=== PATIENT | male | born 1965 | race Hispanic/Latino ===

== ENCOUNTER 2017-10-01 23:29 | Emergency (ER) | payer MEDICARE ==
[~2017-10-01] VITALS: Ht 165.1 cm; Wt 58.1 kg
[~2017-10-01 23:29] MED LIST: ACETAMINOPHEN650 M1 PO; AMLODIPINE BESY10 MG PO; ASPIR 8181 MG PO; ATORVASTATIN CA40 MG PO; CARVEDILOL12.5 MG PO; CIPRO500 MG PO; DIALYVITE 800-1 EACH PO; DIALYVITE 8000.8 M1 PO; DIPHENOXYLATE-1 EACH PO; FERROUS SULFAT325 MG PO; FLAGYL250 MG; HUMALOG MI100 UNITS/ SQ; HYDRALAZINE HCL25 MG PO; ISOSORBIDE MONO30 MG PO; LANTUS 3ML100 UNITS/ SQ; LANTUS100 UNITS/ SQ; LASIX20 MG PO; LISINOPRIL10 MG PO; METOCLOPRAMIDE10 MG PO; MINOXIDIL2.5 MG PO; MIRTAZAPINE15 MG PO; NIFEDIPINE ER30 M1 PO; NITROGLYCERIN0.4 MG SL; PANTOPRAZOLE SO40 MG PO; PLAVIX75 MG PO; PREDNISOLONE ACETATE OP; RENVELA0.8 GM PO; SUCRALFATE1 G/10 ML PO; SUMATRIPTAN SUC50 MG PO; TRAZODONE HCL50 MG PO; VELPHORO PO; XYZAL5 MG PO; ZOFRAN ODT4 MG PO; ZOFRAN4 MG PO
[2017-10-01] MEDS ORDERED: METHYLPREDNISOLONE SOD SUCC 125 MG/2ML VIAL IV STA (23:40)
[2017-10-01] MEDS ORDERED: DIPHENHYDRAMINE HCL INJ 50 MG/ML VIAL IV ONE (23:45)
[2017-10-01 23:58] LABS: BASOPHILS # (AUTO) 0.1 (0.0-0.1); BASOPHILS % 0.7 % (0.0-1.0); EOSINOPHILS # (AUTO) 0.6 (0.0-0.4); EOSINOPHILS % 6.4 % (0.0-6.0); HEMATOCRIT 41.3 % (38.2-49.6); HEMOGLOBIN 13.5 g/dL (14.0-18.0); LYMPHOCYTES # (AUTO) 0.9 (1.0-3.2); LYMPHOCYTES % 9.9 % (18.0-39.1); MEAN CORPUSCULAR HEMOGLOBIN 31.8 pg (28-32); MEAN CORPUSCULAR HGB CONC 32.7 g/dL (31-35); MEAN CORPUSCULAR VOLUME 97.4 fL (81-99); MONOCYTES # (AUTO) 0.7 (0.2-0.8); MONOCYTES % 7.6 % (4.4-11.3); NEUTROPHILS % 75.1 % (38.7-80.0); PLATELET COUNT 225 x10e3/uL (140-360); RED BLOOD COUNT 4.24 x10e6/uL (4.3-5.7); RED CELL DISTRIBUTION WIDTH 13.2 % (11.7-14.4)
[2017-10-02 00:12] LABS: INR 0.97; PROTHROMBIN TIME 13.4 seconds (11.9-14.5)
[2017-10-02 00:13] LABS: PARTIAL THROMBOPLASTIN TIME 27.8 seconds (23.8-35.5)
[2017-10-02 00:19] LABS: ALBUMIN 4.4 g/dL (3.5-5.0); ALBUMIN/GLOBULIN RATIO 1.2 (0.8-2.0); ANION GAP 20.1 mmol/L (8-16); CALCIUM 9.4 mg/dL (8.4-10.2); POTASSIUM 5.1 mmol/L (3.5-5.1)
[2017-10-02 00:44] LABS: CREATININE, SERUM 7.73 mg/dL (0.72-1.25)
== END 2017-10-02 01:12 | disposition home or self-care (01) ==
LOC: ER 23:29
DX: L50.2 Urticaria due to cold and heat (principal); I12.0 Hypertensive chronic kidney disease with stage 5 chronic kidney disease or end stage renal disease; N18.6 End stage renal disease; Z99.2 Dependence on renal dialysis; I25.2 Old myocardial infarction; Z95.1 Presence of aortocoronary bypass graft
CPT/HCPCS: 36415; 80053; 85025; 85610; 85730; 99283; J1200; J2930

== ENCOUNTER 2018-01-31 10:22 | Emergency (ER) | payer MEDICARE ==
[~2018-01-31] VITALS: Ht 165.1 cm; Wt 58.1 kg
--- OUTSIDE RECORDS SUMMARY | 2018-01-31 10:25 | XMS REPORT ---
Author Author [facility] Address Unknown Phone Unavailable Care Team Providers Care Government Relations Director Name Role Phone Unavailable Unavailable Problems This patient has no known problems. Allergies, Adverse Reactions, Alerts This patient has no known allergies or adverse reactions. Medications This patient has no known medications. Encounters Start Date/Time End Date/Time Encounter Type Admission Type Attending [facility] Care Department Encounter ID 2018-01-31 00:00:00 2018-01-31 00:00:00 Outpatient [facility] [id number] 2017-11-30 00:00:00 2017-11-30 00:00:00 Outpatient [facility] [id number] 2017-11-22 12:50:44 2017-11-22 12:50:44 Outpatient [facility] [id number] 2017-11-08 13:46:46 2017-11-08 13:46:46 Outpatient [facility] [id number] 2017-10-03 00:00:00 2017-10-03 00:00:00 Outpatient [facility] [id number] 2016-12-02 11:24:54 2016-12-02 11:24:54 Outpatient [facility] [id number]
[2018-01-31] MEDS ORDERED: DIPHENHYDRAMINE HCL 25 MG CAP PO ONE (11:00)
[2018-01-31] MEDS ORDERED: METOCLOPRAMIDE HCL 10 MG TAB PO SCH (11:00)
[2018-01-31] MEDS ORDERED: METOCLOPRAMIDE HCL 10 MG TAB PO ONE (11:00)
[2018-01-31] MEDS ORDERED: METOCLOPRAMIDE HCL 10 MG/2ML VIAL IV STA (14:17)
[2018-01-31] MEDS ORDERED: ACETAMINOPHEN 1000 MG/100 ML IV STA (14:19)
[2018-01-31 14:30] LABS: BASOPHILS # (AUTO) 0.1 (0.0-0.1); BASOPHILS % 0.8 % (0.0-1.0); EOSINOPHILS # (AUTO) 0.4 (0.0-0.4); EOSINOPHILS % 6.4 % (0.0-6.0); HEMOGLOBIN 12.7 g/dL (14.0-18.0); LYMPHOCYTES # (AUTO) 0.7 (1.0-3.2); LYMPHOCYTES % 11.4 % (18.0-39.1); MEAN CORPUSCULAR HEMOGLOBIN 33.7 pg (28-32); MEAN CORPUSCULAR HGB CONC 33.4 g/dL (31-35); MEAN CORPUSCULAR VOLUME 100.8 fL (81-99); MONOCYTES # (AUTO) 0.6 (0.2-0.8); MONOCYTES % 8.7 % (4.4-11.3); NEUTROPHILS # (AUTO) 4.7 (2.1-6.9); NEUTROPHILS % 72.5 % (38.7-80.0); PLATELET COUNT 152 x10e3/uL (140-360); RED BLOOD COUNT 3.77 x10e6/uL (4.3-5.7); RED CELL DISTRIBUTION WIDTH 13.8 % (11.7-14.4)
[2018-01-31 14:51] LABS: ALBUMIN 3.8 g/dL (3.5-5.0); ALBUMIN/GLOBULIN RATIO 1.1 (0.8-2.0); ALKALINE PHOSPHATASE 63 IU/L (40-150); BLOOD UREA NITROGEN 34 mg/dL (7-26); BUN/CREATININE RATIO 5 (6-25); CARBON DIOXIDE 26 mmol/L (22-29); CHLORIDE 97 mmol/L (98-107); CREATININE, SERUM 7.33 mg/dL (0.72-1.25); EST GLOMERULAR FILTRATION RATE 8 ML/MIN (60-); GLUCOSE 142 mg/dL (74-118); SODIUM 137 mmol/L (136-145)
[2018-01-31 14:52] LABS: ALANINE AMINOTRANSFERASE < 6 IU/L (0-55)
[2018-01-31] MEDS ORDERED: DIPHENHYDRAMINE HCL 25 MG CAP PO SCH (15:15)
[2018-01-31 15:47] VITALS: BP 155/87
== END 2018-01-31 15:45 | disposition home or self-care (01) ==
LOC: ER 10:22
DX: G44.211 Episodic tension-type headache, intractable (principal); I10 Essential (primary) hypertension; E11.9 Type 2 diabetes mellitus without complications; F17.210 Nicotine dependence, cigarettes, uncomplicated
CPT/HCPCS: 36415; 80053; 85025; 99284; J2765

== ENCOUNTER 2018-07-15 21:20 | Inpatient (IN) | payer MEDICARE ==
[~2018-07-15] VITALS: Ht 165.1 cm; Wt 72.6 kg
[2018-07-15] MEDS ORDERED: PANTOPRAZOLE 40 MG 10ML VIAL IV STA (23:04)
[2018-07-15] MEDS ORDERED: ONDANSETRON HCL INJ 2 MG/ML VIAL IV STA (23:04)
[2018-07-15 23:13] LABS: BASOPHILS % 0.6 % (0.0-1.0); EOSINOPHILS # (AUTO) 0.3 (0.0-0.4); EOSINOPHILS % 3.7 % (0.0-6.0); HEMATOCRIT 33.7 % (38.2-49.6); LYMPHOCYTES # (AUTO) 0.7 (1.0-3.2); LYMPHOCYTES % 10.4 % (18.0-39.1); MEAN CORPUSCULAR HEMOGLOBIN 32.8 pg (28-32); MEAN CORPUSCULAR HGB CONC 32.6 g/dL (31-35); MEAN CORPUSCULAR VOLUME 100.6 fL (81-99); MONOCYTES # (AUTO) 0.6 (0.2-0.8); MONOCYTES % 7.9 % (4.4-11.3); NEUTROPHILS # (AUTO) 5.4 (2.1-6.9); NEUTROPHILS % 77.3 % (38.7-80.0); PLATELET COUNT 174 x10e3/uL (140-360); RED BLOOD COUNT 3.35 x10e6/uL (4.3-5.7); RED CELL DISTRIBUTION WIDTH 12.8 % (11.7-14.4)
[2018-07-15 23:18] LABS: INR 1.04; PARTIAL THROMBOPLASTIN TIME 31.6 seconds (23.8-35.5); PROTHROMBIN TIME 14.5 seconds (11.9-14.5)
[2018-07-15 23:25] LABS: ALBUMIN/GLOBULIN RATIO 1.3 (0.8-2.0); CALCIUM 9.1 mg/dL (8.4-10.2); CREATININE, SERUM 10.28 mg/dL (0.72-1.25); MAGNESIUM 2.4 MG/DL (1.3-2.1)
[2018-07-15 23:32] LABS: CREATINE KINASE MB 2.2 ng/mL (0-5.0)
[2018-07-15] MEDS ORDERED: DIATRIZOATE MEGL/DIATRIZOA SOD 30 ML BTL PO ONE (23:40)
[2018-07-16] MEDS ORDERED: DEXTROSE 50% SYRINGE 50 ML IV STA (00:27)
[2018-07-16] MEDS ORDERED: SODIUM BICARBONATE 8.4% INJ 50 ML SYR IV STA (00:27)
[2018-07-16] MEDS ORDERED: INSULIN REGULAR, HUMAN 100 UNIT/1 ML 3ML VIAL IV ONE (00:30)
--- NOTE | 2018-07-16 00:45 | Diagnostic Imaging Report ---
EXAM: CHEST SINGLE (PORTABLE), AP 1 view INDICATION: Nausea and vomiting COMPARISON: AP view of the chest March 27, 2016 FINDINGS: LINES/TUBES: None LUNGS: No consolidations. Stable vascular congestion. PLEURA: No effusions or pneumothorax. HEART AND MEDIASTINUM: Stable cardiomegaly and median sternotomy wires. Surgical changes of coronary artery bypass. BONES AND SOFT TISSUES: No acute findings. IMPRESSION: Stable cardiomegaly and vascular congestion. Signed by: Dr. Alia Roe M.D. on 07/16/2018 12:41 AM
[2018-07-16 00:53] LABS: AMYLASE 86 U/L (25-125); LIPASE 30 U/L (8-78)
[2018-07-16 01:24] LABS: COLOR,URINE YELLOW (YELLOW)
[2018-07-16 01:25] LABS: BILIRUBIN,URINE NEGATIVE (NEGATIVE); CLARITY,URINE CLOUDY (CLEAR); KETONES,URINE NEGATIVE (NEGATIVE); LEUKOCYTE ESTERASE ,URINE 1+ (NEGATIVE); NITRITE,URINE NEGATIVE (NEGATIVE); PROTEIN,URINE DIPSTICK 3+ (NEGATIVE); URINE UROBILINOGEN 0.2 mg/dL (0.2 - 1)
[2018-07-16 01:26] LABS: BACTERIA,URINE FEW /HPF; EPITHELIAL CELLS,URINE FEW /LPF; WBC,URINE (MAN) 21-50 /HPF (0-5)
--- NOTE | 2018-07-16 01:31 | Diagnostic Imaging Report ---
EXAM: CT ABDOMEN AND PELVIS without IV CONTRAST INDICATION: Nausea, vomiting and abdominal pain COMPARISON: None TECHNIQUE: The abdomen and pelvis were scanned using a multidetector helical scanner. Coronal and sagittal reformations were obtained. Dose modulation, iterative reconstruction, and/or weight based adjustment of the mA/kV was utilized to reduce the radiation dose to as low as reasonably achievable. Routine protocol performed. IV Contrast: None Oral Contrast: Gastrografin CTDIvol has been reviewed. It is below the limits set by the Radiation Protocol Committee (RPC). FINDINGS: LOWER THORAX: No consolidations. Partially visualized cardiomegaly and coronary artery calcifications. LIVER: No masses. Portal edema. BILIARY: Marked gallbladder wall thickening and adjacent inflammation. SPLEEN: No masses PANCREAS: No masses ADRENALS: Bilateral adrenal gland hyperplasia. RIGHT KIDNEY: No nephroureterolithiasis or hydronephrosis. LEFT KIDNEY: No nephroureterolithiasis or hydronephrosis. GI TRACT: Thickening of the colon at the hepatic flexure, may be reactive. No bowel obstruction. Normal appendix. VESSELS: Marked atherosclerotic changes of the abdominal aorta without aneurysm. PERITONEUM/RETROPERITONEUM: Right upper quadrant free fluid and inflammatory changes. 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 IMPRESSION: Findings suspicious for acute cholecystitis. A right upper quadrant ultrasound is recommended for further evaluation. Signed by: Dr. Alia Roe M.D. on 07/16/2018 1:27 AM
[2018-07-16] MEDS ORDERED: DEXTROSE 50% SYRINGE 50 ML IV PRN (01:45)
[2018-07-16] MEDS: MORPHINE SULFATE 2 MG/ML SYR IV PRN ×2 (02:14→08:00)
[2018-07-16] MEDS: METRONIDAZOLE 500MG/NS 100ML 100 ML IV SCH ×4 (04:56→21:20)
--- NOTE | 2018-07-16 04:59 | Diagnostic Imaging Report ---
EXAM: US GALLBLADDER INDICATION: Abdominal pain COMPARISON: CT of the abdomen and pelvis without IV contrast July 16, 2018 TECHNIQUE: Transverse and longitudinal sonographic images of the right upper abdomen were obtained. FINDINGS: LIVER: 16 cm in the right midclavicular line. Normal echogenicity, normal contour, no masses. Main Portal Vein: Normal size with hepatopetal flow. GALLBLADDER: Marked gallbladder wall thickening up to 8 mm and pericholecystic fluid. Negative sonographic Castellano's sign. BILE DUCTS: No intra nor extra-hepatic dilation. Common bile duct measures 0.5 cm. PANCREAS: Visualized portions are normal. RIGHT KIDNEY: 7.9 cm in length Echogenicity: Normal Collecting System: No hydronephrosis Stones: None Cyst/Mass: None FREE FLUID: None in the right upper quadrant of the abdomen IMPRESSION: Marked gallbladder wall thickening and pericholecystic fluid. However the sonographic Castellano's sign was negative and there are no gallstones. Signed by: Dr. Alia Roe M.D. on 07/16/2018 4:56 AM
[2018-07-16] MEDS: ONDANSETRON HCL INJ 2 MG/ML VIAL IV PRN ×5 (05:48→22:22)
[2018-07-16] MEDS: INSULIN REGULAR, HUMAN 100 UNIT/1 ML 3ML VIAL SQ SCH ×4 (07:45→20:19)
[2018-07-16] MEDS ORDERED: HYDROMORPHONE 2MG/ML 2 MG/ML ML IV ONE (09:15)
[2018-07-16] MEDS: FAMOTIDINE 20 MG/2 ML VIAL IV SCH ×2 (09:25→21:20)
[2018-07-16] MEDS: CEFTRIAXONE SOD 1 GM VIAL IV SCH (09:30)
[2018-07-16] MEDS ORDERED: ENALAPRILAT DIHYDRATE 1.25 MG/ML 2ML VIAL IV PRN (11:45)
[2018-07-16] MEDS: DEXTROSE 5%/0.9% SOD CHL 1,000 ML IV SCH (12:00)
[2018-07-16 12:29] VITALS: BP 184/84
[2018-07-16 12:44] VITALS: BP 184/84
[2018-07-16 14:36] LABS: CREATINE KINASE MB 2.1 ng/mL (0-5.0)
[2018-07-16] MEDS: METOCLOPRAMIDE HCL 10 MG TAB PO SCH ×2 (15:00→20:38)
[2018-07-16] MEDS ORDERED: SODIUM CHLORIDE 0.9% 1000ML 2,000 ML ONE (15:02)
[2018-07-16 15:23] VITALS: BP 171/92
--- NOTE | 2018-07-16 15:34 | History and Physical ---
CHIEF COMPLAINT: Nausea, vomiting, abdominal pain. HISTORY OF PRESENT ILLNESS: This is a 53-year-old, male, with known history of ESRD on dialysis, in which he follows up with Dr. Diego at , anemia of ESRD, also secondary hyperparathyroidism, and type 2 diabetes, in which he presents to the ED with complaints of abdominal pain, epigastrically with nausea and vomiting. Patient reports this has been ongoing for the last several days. Of note, he recently saw GASTON Crook and he was scheduled to have EGD, colonoscopy in the future. While here, imaging studies was consistent with acute cholecystitis. He denies any fever, chest pain, or any other complaints at home. Patient also denies any diarrhea or any other complaints at this time. Patient seen and evaluated at bedside on the medical floor, currently doing well with no other complaints. He was having some episodes of nausea during examination. REVIEW OF SYSTEMS: Pertinent positive; abdominal pain epigastric, nausea, vomiting, decreased oral intake. Pertinent negative; denies any chest pain, palpitation, dysuria, hematuria, frequency, urgency, lightheadedness, dizziness, headache, shortness of breath, cough, congestion, fever, or any other complaints. The rest of the 14-point review of systems have been reviewed with the patient and are negative. ALLERGIES: HYDROCODONE, PLASTIC TAPE. HOME MEDICATIONS 1. He takes amlodipine 10 mg daily. 2. Coreg 25 mg p.o. b.i.d. 3. Lantus 5 units subcutaneous b.i.d. 4. Lisinopril 20 mg daily. 5. Reglan 5 mg t.i.d. 6. Protonix 40 mg daily. 7. Plavix 75 mg daily. 8. Carafate 10 mL p.o. t.i.d. with meals. PAST MEDICAL HISTORY: ESRD on HD, anemia of ESRD, secondary hyperparathyroidism, gastroparesis, hypertension, acid reflux. PAST SURGICAL HISTORY: He has tunneled dialysis catheters in the past and fistulas. FAMILY HISTORY: Hypertension and diabetes. SOCIAL HISTORY: No drugs. No alcohol. He does not smoke. Good social support. VITAL SIGNS: Temperature is 98.1, pulse 75, respiratory rate is 16, blood pressure 170/94. LABS: White count 6.9, hemoglobin 11, hematocrit 34, platelets of 174,000. Coagulation PT 14.5, INR 1, PTT 31.6. Chemistry; sodium 139, potassium is now 5.6, chloride is 97, bicarb is 21, anion gap of 27, BUN is 67, creatinine 10.2. Glucose is 133, calcium is 9.1, magnesium 2.4, total bilirubin is 0.6, AST is 22, ALT is 20, total protein 0.065, lipase is 30, amylase is 86. Troponin is 0.065, which was found to be negative. Urinalysis, WBCs 21 to 50, leukocyte esterase 1+, trace blood. MICROBIOLOGY: Urine culture is pending. IMAGING STUDIES: Chest x-ray is negative. Gallbladder ultrasound shows marked gallbladder wall thickening and pericholecystic fluid. Concerning for acute cholecystitis. CT abdomen and pelvis was consistent for acute cholecystitis. PHYSICAL EXAM GENERAL: Not in acute distress, alert and oriented x3, cooperative on examination. HEENT: Head is normocephalic and atraumatic. Eyes, pupils are equal, round, and reactive to light bilaterally. Extraocular movements are intact bilaterally. NECK: Supple with good range of motion. THROAT: No evidence of any erythema or exudates in the posterior pharynx, has poor dentition. PULMONARY: Clear to auscultation bilaterally. No wheezing. No rales, no rhonchi. No crackles appreciated. CARDIOVASCULAR: Positive S1, S2. No murmurs, rubs, or gallops appreciated. ABDOMEN: Soft. He has tender to palpation in the epigastric region. No pain in the right upper quadrant, though bowel sounds were present. MUSCULOSKELETAL: Strength is 5/5 throughout. No evidence of any muscle deficit on examination. No weakness appreciated. NEUROLOGICAL: Cranial nerves II through XII are grossly intact. No evidence of any neurologic deficit on exam. SKIN: Intact, warm to touch, good cap refill. PSYCHIATRIC: Normal affect and mood. EXTREMITIES: No edema. Good range of motion throughout. IMPRESSION 1. Epigastric abdominal pain with nausea, vomiting, and dehydration. 2. Acute cholecystitis seen on imaging studies. 3. End-stage renal disease with underlying hyperkalemia. 4. Urinary tract infection. 5. Anemia of end-stage renal disease. 6. Secondary hyperparathyroidism. 7. Hypertension. PLAN: At this time, General Surgery was consulted for the acute cholecystitis. He is n.p.o. for now and on IV fluids as well as pain control. GI was consulted for the epigastric abdominal pain, as he was complaining of nausea, vomiting, and pain for several weeks now in which he was scheduled for EGD. Dr. Omer has been consulted. In relation to his ESRD and mild hyperkalemia, nephrology consulted and they will make a decision about dialysis needs. His blood pressure is slightly elevated. We are going to resume all his home medications now and put him on p.r.n. Vasotec. He does have a urinary tract infection in which he will be on IV Rocephin. We are going to hold DVT prophylaxis and put him on SCDs for now and avoid Lovenox due to possible needing surgery. He will be on a renal diet. Pain control and IV fluids as well on D5NS due to concerns of possible hypoglycemia. Job#: [id number] MARYLOU
[2018-07-16] MEDS ORDERED: PANTOPRAZOLE SOD 40 MG TABEC PO SCH (16:30)
[2018-07-16] MEDS ORDERED: METOCLOPRAMIDE HCL 10 MG TAB PO SCH (17:00)
[2018-07-16] MEDS: CARVEDILOL 12.5 MG TAB PO SCH (18:00)
[2018-07-16 20:00] VITALS: BP 196/98
[2018-07-16] MEDS ORDERED: ENALAPRILAT IV INJ 1.25 MG/ML VIAL ONE (20:47)
[2018-07-16 21:18] VITALS: BP 206/95
[2018-07-16] MEDS: ENALAPRILAT DIHYDRATE 1.25 MG/ML 2ML VIAL IV PRN (21:20)
--- NOTE | 2018-07-16 21:44 | Consultation ---
DATE OF CONSULTATION: July 16, 2018 REFERRING PHYSICIAN: Dr. Mariel Sal HISTORY OF PRESENT ILLNESS: Patient is a 53-year-old male with history of end-stage renal disease, presents with complaints of epigastric abdominal pain. Patient states he has had pain for a couple of weeks and it became worse, came to the emergency room. Evaluation in the emergency room with CT of the abdomen and pelvis as well as gallbladder ultrasound reveals significantly thickened gallbladder wall with inflammation around the gallbladder. No stones were seen, however, on ultrasound. Patient says the pain is a little bit less now since he has received pain medicine. PAST MEDICAL HISTORY: Significant for hypertension, end-stage renal disease. Additional medical problems are diabetes and hypercholesterolemia. MEDICATIONS AT HOME: Amlodipine, atorvastatin, carvedilol, Cipro, Plavix, vitamins, insulin, Xyzal, lisinopril, Reglan, Protonix, and Carafate. PAST SURGICAL HISTORY: He has had previous surgery for dialysis access. Does not recount any other surgeries. ALLERGIES: HE HAS ALLERGY TO PLASTIC TAPE AND HYDROCODONE. FAMILY HISTORY: Noncontributory. SOCIAL HISTORY: The patient does not smoke cigarettes or drink alcohol. REVIEW OF SYSTEMS: As stated above, otherwise was negative. PHYSICAL EXAMINATION: GENERAL: The patient is awake and alert. VITAL SIGNS: Normal. He is not tachycardic. HEENT: Revealed no scleral icterus. NECK: Has no masses. LUNGS: Equal breath sounds are clear bilaterally. CARDIAC: Regular rate and rhythm with no murmur. ABDOMEN: Tender in the epigastrium. There is no distention. There is no mass. There are no signs of peritonitis. EXTREMITIES: There is a large AV fistula in left upper arm. There is no edema. LAB TESTS: Significant findings are potassium level was 6.0, elevated BUN and creatinine consistent with his renal failure. CBC was essentially normal. ASSESSMENT: Ztpcm-[id number]-old male with findings suggestive of acute cholecystitis with findings also suggestive of acute and chronic cholecystitis. Likely benefit from cholecystectomy, which I plan to schedule for tomorrow. Procedure was explained to the patient including risks, benefits, and alternatives. He understands the procedure. He has had the opportunity to ask questions. He is aware of the possible need for open surgery. Thank you for asking me to see Mr. Thompson. Job#: [id number]
[2018-07-16 22:15] VITALS: BP 172/85
--- NOTE | 2018-07-16 22:21 | Consultation ---
DATE OF CONSULTATION: REQUESTING PHYSICIAN: Dr. Parra. REASON FOR CONSULTATION: ESRD. Thanks so much for asking me to participate in Mr. Thompson's care. I am covering for Dr. Davis. This is a 53-year-old male with history of end-stage renal disease, dialysis 3 times a week, Tuesday, , and Tuesday. For unclear reasons, he did not go there, apparently quoted nausea earlier. He denies any dyspnea. No swelling in the legs. There is a question of gastroparesis with recurrent nausea and vomiting. Potassium earlier was high. It has been treated. Repeat is pending. If it is still high, the plan is to dialyze him today, even though it is not his regular day. PAST MEDICAL HISTORY: Significant for ESRD, history of hyperkalemia, possible gastroparesis, type 2 diabetes, hypertension, diastolic heart failure, coronary artery disease status post CABG. HOME MEDICATIONS: Pleas see list. SOCIAL HISTORY: He lives with family. Does not abuse alcohol or smoke. REVIEW OF SYSTEMS CONSTITUTIONAL: No fever or chills. GI: Intermittent nausea and vomiting. CARDIAC: No angina or syncope. RESPIRATORY: No cough or hemoptysis. EXTREMITIES: No edema. Rest of review is negative. PHYSICAL EXAMINATION GENERAL: On examination, lying in bed, no distress. VITAL SIGNS: Temperature 98.1, pulse 81, blood pressure 178/89. HEENT: Atraumatic, evidence right eye enucleation. NECK: Neck veins are flat. CHEST: Clear. On exam, bilateral breath sounds are equal. CARDIAC: Normal heart tones. Faint S4. EXTREMITIES: No edema. ABDOMEN: Benign. Chest x-ray is showing some congestion, although he seems to be breathing without any labor. CT scan shows possible acute cholecystitis. LABS: Labs show potassium of 6 earlier, repeat is pending, serum CO2 of 21, creatinine 10.8, BUN 67. Hemoglobin is 11. UA is cloudy, showing some wbc's. Cultures are pending at the time of this dictation. ASSESSMENT 1. ESRD. 2. Hyperkalemia, which has been treated. Repeat is pending. 3. Minimal acidosis from the decreased GFR. 4. Underlying type 2 diabetes and hypertensive nephropathy. 5. Mild fluid overload. PLAN: We will plan on dialysis depending on the repeat potassium, keep the low-potassium diet. Consider surgical evaluation due to evidence of possible cholecystitis. We will follow along. Job#: [id number] GET
[2018-07-17] VITALS (7 sets, daily range): BP systolic 137–188; BP diastolic 66–94
[2018-07-17] MEDS ORDERED: PANTOPRAZOLE 40 MG 10ML VIAL IV STA (01:03)
[2018-07-17] MEDS: DEXTROSE 5%/0.9% SOD CHL 1,000 ML IV SCH (02:25)
[2018-07-17] MEDS: METRONIDAZOLE 500MG/NS 100ML 100 ML IV SCH ×4 (04:00→20:59)
[2018-07-17] MEDS ORDERED: ENALAPRILAT IV INJ 1.25 MG/ML VIAL ONE (05:00)
[2018-07-17] MEDS: ENALAPRILAT DIHYDRATE 1.25 MG/ML 2ML VIAL IV PRN (05:20)
[2018-07-17] MEDS: ONDANSETRON HCL INJ 2 MG/ML VIAL IV PRN (05:20)
[2018-07-17] MEDS: MORPHINE SULFATE 2 MG/ML SYR IV PRN ×3 (06:00→21:10)
[2018-07-17 06:45] LABS: BASOPHILS % 0.8 % (0.0-1.0); EOSINOPHILS # (AUTO) 0.1 (0.0-0.4); EOSINOPHILS % 1.9 % (0.0-6.0); HEMATOCRIT 30.2 % (38.2-49.6); HEMOGLOBIN 9.8 g/dL (14.0-18.0); LYMPHOCYTES # (AUTO) 0.3 (1.0-3.2); LYMPHOCYTES % 7.1 % (18.0-39.1); MEAN CORPUSCULAR HEMOGLOBIN 32.6 pg (28-32); MEAN CORPUSCULAR HGB CONC 32.5 g/dL (31-35); MEAN CORPUSCULAR VOLUME 100.3 fL (81-99); MONOCYTES # (AUTO) 0.4 (0.2-0.8); MONOCYTES % 8.5 % (4.4-11.3); NEUTROPHILS # (AUTO) 3.9 (2.1-6.9); NEUTROPHILS % 81.3 % (38.7-80.0); PLATELET COUNT 150 x10e3/uL (140-360); RED BLOOD COUNT 3.01 x10e6/uL (4.3-5.7); RED CELL DISTRIBUTION WIDTH 12.9 % (11.7-14.4)
[2018-07-17 07:05] LABS: ALBUMIN 3.4 g/dL (3.5-5.0); ALBUMIN/GLOBULIN RATIO 1.2 (0.8-2.0); ANION GAP 21.7 mmol/L (8-16); CHOL/HDL RATIO 3.1 (3.9-4.7); CREATININE, SERUM 8.18 mg/dL (0.72-1.25); POTASSIUM 4.7 mmol/L (3.5-5.1)
[2018-07-17] MEDS: INSULIN DETEMIR 100 UNIT/ML PEN SQ SCH (07:30)
[2018-07-17] MEDS: INSULIN REGULAR, HUMAN 100 UNIT/1 ML 3ML VIAL SQ SCH ×4 (07:30→20:53)
[2018-07-17] MEDS: CARVEDILOL 12.5 MG TAB PO SCH ×2 (08:00→17:09)
[2018-07-17 08:19] LABS: LYMPHOCYTES % (MANUAL) 10 % (19-48); MONOCYTES % (MANUAL) 7 % (3.4-9.0); NEUTROPHILS % (MANUAL) 78 % (40-74)
[2018-07-17 08:21] LABS: HYPOCHROMASIA SLIGHT; PLATELET ESTIMATE ADEQUATE; PLATELET MORPHOLOGY COMMENT NORMAL; RBC MORPHOLOGY COMMENT NORMAL
[2018-07-17] MEDS: LISINOPRIL 20 MG TAB PO SCH (09:00)
[2018-07-17] MEDS: AMLODIPINE BESYLATE 10 MG TAB PO SCH (09:00)
[2018-07-17] MEDS: METOCLOPRAMIDE HCL 10 MG TAB PO SCH ×3 (09:00→20:59)
[2018-07-17] MEDS: FAMOTIDINE 20 MG/2 ML VIAL IV SCH ×2 (09:43→20:59)
[2018-07-17] MEDS: CEFTRIAXONE SOD 1 GM VIAL IV SCH (09:43)
[2018-07-17] MEDS: PANTOPRAZOLE 40 MG 10ML VIAL IV SCH ×2 (09:51→20:59)
--- NOTE | 2018-07-17 12:12 | Progress Note ---
DATE: July 17, 2018 INTERNAL MEDICINE PROGRESS NOTE SUBJECTIVE: The patient is scheduled for a laparoscopic cholecystectomy later today by general surgery. GI did evaluate him. It seems he may need an EGD prior to going home. He did receive dialysis yesterday by nephrology. He is currently n.p.o. for surgery. VITAL SIGNS: Temperature is 98.1, pulse 67, respiratory rate 20, blood pressure 171/81, very elevated overnight as well. His pulse ox is 94%. He is on room air. LAB FINDINGS: White count 4.8, hemoglobin 9.8, hematocrit 30.2, platelets 150. Chemistry: Sodium 141, potassium 4.7, chloride 102, bicarb 22, anion gap 21, BUN 49, creatinine 0.1, glucose 135, phosphorus 7.8, calcium 8, albumin 3.4, LDL 81. Urine cultures are pending, so far no growth. IMAGING STUDIES: None. PHYSICAL EXAMINATION GENERAL: Not in acute distress, alert and oriented x3, cooperative on examination. HEENT: Head is normocephalic and atraumatic. Eyes: Pupils are equal and reactive to light bilaterally. Extraocular movements are intact bilaterally. NECK: Supple with good range of motion. THROAT: No evidence of any erythema or exudates in the posterior pharynx, has poor dentition. PULMONARY: Clear to auscultation bilaterally. No wheezing. No rales, no rhonchi. No crackles appreciated. CARDIOVASCULAR: Positive S1, S2. No murmurs, rubs, or gallops appreciated. ABDOMEN: Soft. Nondistended, nontender to palpation. Bowel sounds were present. MUSCULOSKELETAL: Strength is 5/5 throughout. No evidence of any muscle deficit on examination. No weakness appreciated. NEUROLOGICAL: Cranial nerves II through XII are grossly intact. No evidence of any neurologic deficit on exam. SKIN: Intact, warm to touch, good cap refill. PSYCHIATRIC: Normal affect and mood. EXTREMITIES: No edema. Good range of motion throughout. IMPRESSION 1. Epigastric abdominal pain with nausea, vomiting, and dehydration. 2. Acute cholecystitis. 3. End-stage renal disease on hemodialysis. 4. Urinary tract infection. 5. Anemia of end-stage renal disease. 6. Secondary hyperparathyroidism. 7. Hypertension. PLAN: The patient is currently n.p.o. for a laparoscopic cholecystectomy later today by general surgery. GI was consulted. He possibly will need EGD to evaluate his abdominal pain. Nephrology is following for his dialysis, which he received yesterday. He may get dialysis later today. Will continue with IV antibiotics due to his underlying urinary tract infection. We are going to resume same home medications. His blood pressure is elevated, which I will adjust his meds accordingly. I will decrease the D5NS to avoid volume overload. We are going to hold anticoagulation for now due to the fact that the patient will have surgery. Job#: [id number]
[2018-07-17] MEDS ORDERED: DEXTROSE 5%/0.45% SOD CHL 1,000 ML IV SCH (13:15)
[2018-07-17] MEDS ORDERED: ONDANSETRON HCL INJ 2 MG/ML VIAL IV PRN (13:15)
[2018-07-17] MEDS ORDERED: SODIUM CHLORIDE 0.9% 1000ML 1,000 ML IV SCH ×2 (13:15→17:45)
[2018-07-17] MEDS ORDERED: MORPHINE SULFATE INJ 4 MG/ML INJ IV PRN (13:15)
[2018-07-17] MEDS ORDERED: TRAMADOL HCL 50 MG TAB PO PRN (13:15)
[2018-07-17] MEDS ORDERED: BUPIVACAINE HCL 0.5% INJ 30 ML VIAL INJ ONE (13:43)
[2018-07-17] MEDS ORDERED: FENTANYL CITRATE/PF 100MCG/2 ML INJ ONE ×2 (14:20→17:22)
--- NOTE | 2018-07-17 14:47 | Operative Report ---
DATE OF PROCEDURE: July 17, 2018 PREOPERATIVE DIAGNOSIS: Acute cholecystitis. POSTOPERATIVE DIAGNOSIS: Acute cholecystitis. PROCEDURES 1. Diagnostic laparoscopy. 2. Laparoscopic cholecystectomy. ADVERTISING TRAFFIC MANAGER: None. ANESTHESIA: General. INDICATIONS AND FINDINGS: The patient is a 53-year-old male who presented with complaints of severe epigastric and right upper quadrant abdominal pain. Workup revealed findings suggestive of acute cholecystitis. At surgery, the patient's gallbladder was very distended and edematous. Extensive adhesions were involving the omentum, transverse colon and duodenum over the neck and fundus of the gallbladder. Cystic duct was about 2 mm in diameter. Common bile duct was about 5 mm in diameter. Liver, stomach and lower abdomen all appeared normal. TECHNIQUE: After adequate general endotracheal anesthesia, with the patient in the supine position, the abdomen was prepped and draped in sterile fashion with Beckwourth solution. Skin in the umbilicus was infiltrated with 1/2 percent Marcaine. Incision was made in the umbilicus. Abdominal wall was elevated, and a Veress needle was introduced. Pneumoperitoneum was then created. A 10-mm trocar and cannula were then passed through the umbilical wound. Laparoscopic camera was introduced. Initial laparoscopy revealed liver, stomach and lower abdomen appeared normal. Gallbladder was noted to be very distended and edematous. A 10-mm trocar and cannula were placed in the epigastrium and two 5-mm trocars and cannulas were placed in the right upper quadrant. These were placed under direct vision. Fundus of the gallbladder was grasped and retracted superiorly. There were adhesions over the neck and fundus of the gallbladder which involved the omentum, transverse colon and duodenum. These adhesions were lysed, staying close to the gallbladder. Neck of the gallbladder was grasped and retracted laterally. Peritoneum over the neck of the gallbladder was incised. The gallbladder-cystic duct junction was dissected free. Cystic artery was also dissected free. The neck of the gallbladder was completely dissected free. Cystic artery was divided between Hemoclips close to the gallbladder. Cystic duct also divided between Hemoclips with 3 clips being left on the common bile duct side. There was a posterior branch of the cystic artery which was also divided between Hemoclips. The gallbladder was dissected free from the liver using scissors and electrocautery. Once it was entirely free, it was placed into an Endo pouch and brought out through the epigastric cannula. There were no definite stones palpable. Gallbladder bed was inspected for hemostasis, which was seen to be adequate. It was irrigated with saline. All fluid aspirated and inspected for hemostasis, which was seen to be adequate. Instruments and cannulas were removed. Pneumoperitoneum was evacuated. Wounds were then closed. Fascia in the umbilical and epigastric wounds closed with #0 Vicryl. Skin to all wounds closed with sherman. Sterile dressings were applied to each wound. Patient tolerated the procedure well. Estimated blood loss was 10 mL. There were no complications. All counts were correct. Patient was taken to the recovery room in satisfactory condition. Job#: [id number]
[2018-07-17] MEDS ORDERED: SUCCINYLCHOLINE 200 MG/10 ML SYR ONE (16:58)
[2018-07-17] MEDS ORDERED: GLYCOPYRROLATE INJ 1MG/ 5 ML SYR ONE (16:58)
[2018-07-17] MEDS ORDERED: PROPOFOL IV EMULSION 10 MG/ML 20 ML VIAL ONE (16:58)
[2018-07-17] MEDS ORDERED: SEVOFLURANE INHAL SOLN 250 ML PEN BTL ONE (16:58)
[2018-07-17] MEDS ORDERED: EPHEDRINE SULFATE INJ 50 MG/10 ML SYR ONE (16:58)
[2018-07-17] MEDS ORDERED: LIDOCAINE HCL 2% LOCAL INJ 5 ML SDV VIAL INJ ONE (16:58)
[2018-07-17] MEDS ORDERED: DEXAMETHASONE SOD PHOS INJ 4 MG/ML VIAL ONE (16:58)
[2018-07-17] MEDS ORDERED: ROCURONIUM BROMIDE 10 MG/ML 5ML VIAL ONE (16:58)
[2018-07-17] MEDS ORDERED: ONDANSETRON HCL INJ 2 MG/ML VIAL ONE (16:58)
[2018-07-17] MEDS ORDERED: NEOSTIGMINE 5 MG/5ML SYR ONE (16:58)
[2018-07-17] MEDS: LORATADINE 10 MG TAB PO SCH (17:59)
[2018-07-17] MEDS: NIFEDIPINE CR 30 MG TAB PO SCH (20:59)
[2018-07-18] VITALS (7 sets, daily range): BP systolic 129–157; BP diastolic 69–77
[2018-07-18] MEDS: METRONIDAZOLE 500MG/NS 100ML 100 ML IV SCH ×4 (02:41→20:43)
[2018-07-18 06:04] LABS: BASOPHILS % 0.3 % (0.0-1.0); EOSINOPHILS % 0.1 % (0.0-6.0); HEMATOCRIT 33.6 % (38.2-49.6); HEMOGLOBIN 10.9 g/dL (14.0-18.0); LYMPHOCYTES # (AUTO) 0.4 (1.0-3.2); LYMPHOCYTES % 5.7 % (18.0-39.1); MEAN CORPUSCULAR HEMOGLOBIN 32.7 pg (28-32); MEAN CORPUSCULAR HGB CONC 32.4 g/dL (31-35); MEAN CORPUSCULAR VOLUME 100.9 fL (81-99); MONOCYTES # (AUTO) 0.4 (0.2-0.8); NEUTROPHILS # (AUTO) 6.4 (2.1-6.9); NEUTROPHILS % 87.8 % (38.7-80.0); PLATELET COUNT 171 x10e3/uL (140-360); RED BLOOD COUNT 3.33 x10e6/uL (4.3-5.7); RED CELL DISTRIBUTION WIDTH 12.8 % (11.7-14.4)
[2018-07-18 06:20] LABS: ANION GAP 24.6 mmol/L (8-16); CALCIUM 9.1 mg/dL (8.4-10.2); CREATININE, SERUM 9.99 mg/dL (0.72-1.25); POTASSIUM 5.6 mmol/L (3.5-5.1)
[2018-07-18] MEDS: INSULIN DETEMIR 100 UNIT/ML PEN SQ SCH (07:30)
[2018-07-18] MEDS: INSULIN REGULAR, HUMAN 100 UNIT/1 ML 3ML VIAL SQ SCH ×4 (07:30→20:45)
[2018-07-18] MEDS: CARVEDILOL 12.5 MG TAB PO SCH ×2 (08:00→17:12)
[2018-07-18] MEDS: LISINOPRIL 20 MG TAB PO SCH (09:00)
[2018-07-18] MEDS: AMLODIPINE BESYLATE 10 MG TAB PO SCH (09:00)
[2018-07-18] MEDS: CEFTRIAXONE SOD 1 GM VIAL IV SCH (09:21)
[2018-07-18] MEDS: LORATADINE 10 MG TAB PO SCH (09:21)
[2018-07-18] MEDS: PANTOPRAZOLE 40 MG 10ML VIAL IV SCH ×2 (09:21→20:43)
[2018-07-18] MEDS: METOCLOPRAMIDE HCL 10 MG TAB PO SCH ×3 (09:21→20:43)
[2018-07-18] MEDS: FAMOTIDINE 20 MG/2 ML VIAL IV SCH ×2 (09:21→20:43)
[2018-07-18] MEDS ORDERED: SODIUM CHLORIDE 0.9% 1000ML 2,000 ML ONE (10:13)
[2018-07-18] MEDS ORDERED: SODIUM CHLORIDE 0.9% 1000ML 2,000 ML IV PRN (11:15)
--- NOTE | 2018-07-18 12:09 | Progress Note ---
DATE: July 18, 2018 INTERNAL MEDICINE PROGRESS NOTE SUBJECTIVE: Patient is doing well today. He is status post postop day #1 of laparoscopic cholecystectomy. Patient states that his pain is better controlled now. He is not eating much though and he is not ambulating well. Patient will be here overnight to be monitored very closely OBJECTIVE VITAL SIGNS: Temperature is 96.1, pulse is 66, respiratory rate is 18, blood pressure is 129/74, pulse ox is 96% on room air. GENERAL: Not in acute distress, alert and oriented x3, cooperative on examination. HEENT: Head: Normocephalic and atraumatic. Eyes: Pupils are equal, round and reactive to light bilaterally. Extraocular movements are intact bilaterally. NECK: Supple with good range of motion. THROAT: No evidence of any erythema or exudates in the posterior pharynx, has poor dentition. PULMONARY: Clear to auscultation bilaterally. No wheezing, no rales, no rhonchi, no crackles appreciated. CARDIOVASCULAR: Positive S1, S2. No murmurs, rubs, or gallops appreciated. ABDOMEN: Soft, nondistended, and nontender to palpation. Bowel sounds were present. MUSCULOSKELETAL: Strength is 5/5 throughout. No evidence of any muscle deficit on examination. No weakness appreciated. NEUROLOGICAL: Cranial nerves II through XII grossly intact. No evidence of any neurologic deficit on exam. SKIN: Intact. Warm to touch. Good cap refill. PSYCHIATRIC: Normal affect and mood. EXTREMITIES: No edema. Good range of motion throughout. LAB FINDINGS: His white count is 7.3, hemoglobin is 10.9, hematocrit is 34, and platelets of 171. Chemistry: Sodium 138, potassium 5.6, chloride 98, bicarb 21, anion gap 24, BUN 69, creatinine is 0.9, and glucose is 194. Urinalysis was concerning for underlying UTI, but urine cultures were found to be negative. IMAGING STUDIES: None. IMPRESSION 1. Status post laparoscopic cholecystectomy, now improved. Postop day #1 on 07/17/2018 was the surgery. 2. End-stage renal disease, on hemodialysis. 3. Epigastric abdominal pain with nausea, vomiting, and dehydration, now resolved. We will need outpatient esophagogastroduodenoscopy. 4. Urinary tract infection - contaminant. 5. Anemia of end-stage renal disease. 6. Secondary hyperparathyroidism. 7. Hypertension. PLAN: At this time, patient is postop day #1 from laparoscopic cholecystectomy, doing well. He is not eating much, so we are going to monitor him overnight. Once he tolerate diet well and gets up and ambulate, will discharge home. Patient will need outpatient EGD for GI. I already discussed the case with general surgeon and he has been cleared by his standpoint. He is currently receiving dialysis by the cable layer. In relation to his urinary tract infection, I am going to go ahead and discontinue the IV antibiotics that was found to be a contaminant. His blood pressure is better controlled on a new regimen of blood pressure meds. I am going to discontinue IV fluids. Patient will be here until tomorrow and will discharge first thing in the morning. Job#: [id number] SALIMA
[2018-07-18] MEDS: MORPHINE SULFATE 2 MG/ML SYR IV PRN (14:45)
[2018-07-18] MEDS: NIFEDIPINE CR 30 MG TAB PO SCH (20:43)
[2018-07-19] MEDS: METRONIDAZOLE 500MG/NS 100ML 100 ML IV SCH ×2 (02:51→09:00)
[2018-07-19 04:00] VITALS: BP 158/78
[2018-07-19 05:42] LABS: BASOPHILS % 0.7 % (0.0-1.0); EOSINOPHILS # (AUTO) 0.3 (0.0-0.4); EOSINOPHILS % 4.6 % (0.0-6.0); HEMATOCRIT 32.6 % (38.2-49.6); HEMOGLOBIN 10.6 g/dL (14.0-18.0); LYMPHOCYTES # (AUTO) 0.5 (1.0-3.2); LYMPHOCYTES % 7.8 % (18.0-39.1); MEAN CORPUSCULAR HEMOGLOBIN 32.5 pg (28-32); MEAN CORPUSCULAR HGB CONC 32.5 g/dL (31-35); MONOCYTES # (AUTO) 0.4 (0.2-0.8); MONOCYTES % 7.3 % (4.4-11.3); NEUTROPHILS # (AUTO) 4.7 (2.1-6.9); NEUTROPHILS % 79.4 % (38.7-80.0); PLATELET COUNT 158 x10e3/uL (140-360); RED BLOOD COUNT 3.26 x10e6/uL (4.3-5.7)
[2018-07-19 06:03] LABS: ANION GAP 20.8 mmol/L (8-16); CALCIUM 8.5 mg/dL (8.4-10.2); CREATININE, SERUM 6.62 mg/dL (0.72-1.25); POTASSIUM 4.8 mmol/L (3.5-5.1)
[2018-07-19] MEDS: INSULIN REGULAR, HUMAN 100 UNIT/1 ML 3ML VIAL SQ SCH (07:30)
[2018-07-19] MEDS: CARVEDILOL 12.5 MG TAB PO SCH (08:00)
[2018-07-19 08:16] VITALS: BP 135/75
[2018-07-19] MEDS: INSULIN DETEMIR 100 UNIT/ML PEN SQ SCH (08:30)
[2018-07-19] MEDS: AMLODIPINE BESYLATE 10 MG TAB PO SCH (09:00)
[2018-07-19] MEDS: LORATADINE 10 MG TAB PO SCH (09:00)
[2018-07-19] MEDS: PANTOPRAZOLE 40 MG 10ML VIAL IV SCH (09:00)
[2018-07-19] MEDS: LISINOPRIL 20 MG TAB PO SCH (09:00)
[2018-07-19] MEDS: METOCLOPRAMIDE HCL 10 MG TAB PO SCH (09:00)
[2018-07-19] MEDS: FAMOTIDINE 20 MG/2 ML VIAL IV SCH (09:00)
--- NOTE | 2018-07-20 07:15 | Discharge Summary ---
FINAL DISCHARGE DIAGNOSES 1. Status post laparoscopic cholecystectomy on 07/17/2018 by general surgeryDr. Kenney. 2. End-stage renal disease on hemodialysis. 3. Epigastric pain with nausea, vomiting and dehydration secondary to cholecystitis. 4. Urinary tract infection found to be a contaminant. 5. Anemia of end-stage renal disease. 6. Secondary hyperparathyroidism. 7. Hypertension. CONSULTANTS: General surgery, nephrology and GI. VITAL SIGNS: Temperature is 97.9. Pulse is 66. Respiratory rate is 18. Blood pressure 135/75. Pulse ox is 97%. He is on room air. LAB FINDINGS: White count 5.8, hemoglobin 10.6, hematocrit 33, platelets 158. Coagulation: PT is 14.5, INR 1, PTT 31.6. Chemistry: Sodium 138, potassium 4.8, chloride 100, bicarb 22, anion gap 20, BUN 34, creatinine 6.6. His glucose is 151. Calcium is 8.5. Urinalysis was found to be a contaminant. MICROBIOLOGY: Urine culture was found to be a contaminant with mixed du. IMAGING STUDIES: Chest x-ray showed stable vascular congestion. Ultrasound of gallbladder was found to show gallbladder wall thickening and pericholecystic fluid. CT abdomen and pelvis shows suspicion of acute cholecystitis. HOSPITAL COURSE: A 53-year-old male came into the ED with complaints of abdominal pain, nausea, and vomiting and found to have dehydration. Imaging studies were consistent with acute cholecystitis. General surgery was consulted. The patient underwent laparoscopic cholecystectomy on 07/17/2018 by general darling, Dr. Kenney. Patient did well postoperatively with no complaints. He was tolerating diet well as well. GI was consulted and recommended EGD as an outpatient. Nephrology was consulted in which the patient received hemodialysis while here in the hospital. The patient is now tolerating a regular diet with no complaints. On the day of discharge, vital signs are stable. Labs reviewed and stable. Patient seen and evaluated and examined thoroughly on the day of discharge. No other complaints. Patient verbalized an understanding and agrees with the plan of care and will follow up accordingly as an outpatient with the primary care physician in 1 week and with general surgery in 2 weeks' time. MEDICATIONS: See med reconciliation form including tramadol 50 mg 1 tab p.o. q.8 h. p.r.n. for pain, 20 tablets given. DISPOSITION: To home. CONDITION: Stable. DIET: Renal. In the event of any worsening symptoms, the patient was advised to come back to the ED for further evaluation. Discharge summary took greater than 35 minutes. OLEGARIO WEST MD Job#: [id number]
[2018-07-25] MEDS ORDERED: RENVELA0.8 GM PO (15:47)
== END 2018-07-19 11:19 | disposition home or self-care (01) | DRG 417 ==
LOC: ER 21:20 → ERHOLD 07-16 01:46 → MED/SURG3 07-16 12:04
PROVIDERS: ADMIT Internal Medicine; ATTEND Internal Medicine
PROC: 5A1D70Z Performance of Urinary Filtration, Intermittent, Less than 6 Hours Per Day (ICD-10-PCS; principal; 2018-07-16)
PROC: 5A1D70Z Performance of Urinary Filtration, Intermittent, Less than 6 Hours Per Day (ICD-10-PCS; 2018-07-16)
PROC: 0FT44ZZ Resection of Gallbladder, Percutaneous Endoscopic Approach (ICD-10-PCS; 2018-07-17)
DX: K81.0 Acute cholecystitis (principal); N18.6 End stage renal disease; I12.0 Hypertensive chronic kidney disease with stage 5 chronic kidney disease or end stage renal disease; E87.2 Acidosis; N25.81 Secondary hyperparathyroidism of renal origin; E11.22 Type 2 diabetes mellitus with diabetic chronic kidney disease; Z99.2 Dependence on renal dialysis; Z79.4 Long term (current) use of insulin; E11.21 Type 2 diabetes mellitus with diabetic nephropathy; E87.5 Hyperkalemia; D63.1 Anemia in chronic kidney disease; E86.0 Dehydration; K81.1 Chronic cholecystitis
CPT/HCPCS: 36415; 71045; 74176; 76705; 80048; 80053; 80061; 81001; 82150; 82550; 82553; 82948; 83690; 83735; 84100; 84132; 84484; 85025; 85610; 85730; 87086; 87350; 88304; 90962; 93005; 96367; 96372; 99284; J0696; J1100; J2001; J2270; J2405; J7030; J7042; J7799

== ENCOUNTER → 2018-08-24 | Day surgery (SDC) | payer MEDICARE ==
[2018-08-22 11:38] LABS: BASOPHILS # (AUTO) 0.1 (0.0-0.1); EOSINOPHILS # (AUTO) 0.4 (0.0-0.4); EOSINOPHILS % 6.1 % (0.0-6.0); HEMATOCRIT 32.4 % (38.2-49.6); HEMOGLOBIN 10.4 g/dL (14.0-18.0); LYMPHOCYTES % 16.5 % (18.0-39.1); MEAN CORPUSCULAR HEMOGLOBIN 32.5 pg (28-32); MEAN CORPUSCULAR HGB CONC 32.1 g/dL (31-35); MEAN CORPUSCULAR VOLUME 101.3 fL (81-99); MONOCYTES # (AUTO) 0.5 (0.2-0.8); MONOCYTES % 8.5 % (4.4-11.3); NEUTROPHILS # (AUTO) 4.2 (2.1-6.9); NEUTROPHILS % 67.7 % (38.7-80.0); PLATELET COUNT 136 x10e3/uL (140-360); RED CELL DISTRIBUTION WIDTH 12.7 % (11.7-14.4)
[~2018-08-24] MED LIST changes: +GLUCAGON FOR INJ 1 MG VIAL IV ONE; +HYOSCYAMINE SULFATE 0.5 MG/ML INJ IV ONE; +MIDAZOLAM HCL 2 MG/2 ML VIAL ONE; +PROPOFOL IV EMULSION 10 MG/ML 50 ML VIAL IV ONE; +SODIUM CHLORIDE 0.9% 500ML 500 ML ONE
--- OUTSIDE RECORDS SUMMARY | 2018-08-24 08:51 | XMS REPORT | Clinical Summary ---
Author Author JUHI [facility] Organization [facility] Address Unknown Phone Unavailable Care Team Providers Care Top Taper Machine Name Role Phone Fatimah Be Ann Unavailable Unavailable Timothy Romo MD Unavailable Brandt Davey MD Unavailable Magda Ricci DO PCP Fatimah Be 24 Unavailable Peter Vides MD Unavailable Unavailable Allergies Comments Active Allergy Reactions Severity Noted Date Hydrocodone Nausea And 03/16/2013 Vomiting PLASTIC Adhesive Tape 07/03/2014 Medications End Date Status Medication Sig Dispensed Refills Start Date Active sevelamer (RENVELA) 800 Take 1,600 mg 0 mg tablet by mouth 3 (three) times daily with meals. Active atorvastatin (LIPITOR) 40 Take 40 mg by 0 MG tablet mouth nightly. Active carvedilol (COREG) 25 MG Take 25 mg by 0 tablet mouth daily. Active pantoprazole (PROTONIX) Take 40 mg by 0 40 MG tablet mouth daily. Active lisinopril Take 20 mg by 0 (PRINIVIL,ZESTRIL) 20 MG mouth daily. tablet Active mirtazapine (REMERON) 15 Take 15 mg by 0 MG tablet mouth nightly. Active FA-vit Take by 0 Bcomp&X-vxwrooeq-wyha mouth. (FOLIC ACID-VITAMIN B COMPLEX-VITAMIN U-YJJFDFVT-JCMI) 3-70-15 mg-mcg-mg Tab Active metoclopramide (REGLAN) 5 Take 5 mg by 0 MG tablet mouth as needed. Active FOLIC ACID/VITAMIN B COMP Take by 0 W-C (BEN-SLICK mouth. ORAL)Indications: Pre-transplant evaluation for ESRD (end stage renal disease) Active FA/VIT Take by 0 BCOMP&C/ZINC/VITAMIN D3 mouth. (DIALYVITE 800-ULTRA D ORAL)Indications: Pre-transplant evaluation for ESRD (end stage renal disease) Active insulin glargine (LANTUS) Inject 50 0 100 unit/mL injection Units subcutaneousl y every morning. Use as directed Active Problems Problem Noted Date CAD (coronary artery disease) 07/03/2014 Cellulitis and abscess of leg 03/23/2013 Abscess of right leg 03/23/2013 ESRD (end stage renal disease) 01/03/2013 HTN (hypertension) 01/03/2013 Family History Relation Name Status Comments Brother Alive Brother Alive Brother Alive Brother Alive Father Med hx: DM CoD: Stomach & colon CA (Age 77) Mother Med hx: DM CoD: diabetes-related (Age 64) Sister Alive Siblings all live in [place] (ages 32 to 54) . Three have DM. One has HTN. Sister Alive Social History Date Tobacco Use Types Packs/Day Years Used Quit: 10/26/2012 Former Smoker Smokeless Tobacco: Never Used Comments: From age 13 to 47 - smoked 1/2 pack cigarettes each day. Alcohol Use Drinks/Week oz/Week Comments No Stopped drinking alcohol a/o 12 (as of initiation of dialysis) From age 13 to 47 drank 2 packs beer each week - (12 bottles every Tuesday or Tuesday / 1 day wk) Sex Assigned at Date Recorded Not on file Industry Job Start Date Occupation Not on file Not on file Not on file Travel End Travel History Travel Start No recent travel history available. Last Filed Vital Signs Not on file Plan of Treatment Health Maintenance Due Date Last Done Comments INFLUENZA VACCINE 07/17/2018 Results Not on fileafter 08/23/2017 Insurance Payer Benefit Subscriber ID Type Phone Address Plan / Group AETNA - [employer] CARE AETNA HMO xxxxxxxxxx HMO/POS POS QPOS MEDICARE MEDICARE A xxxxxxxxxx Medicare B Advance Directives For more information, please contact: [phone] [place] [address] Date Inactivated Comments Code Status Date Activated 07/04/2014 12:45 PM Full Code 07/03/2014 7:30 AM This code status was determined by: Patient 03/23/2013 7:38 PM Code ONE 03/17/2013 12:14 AM
[2018-08-24 13:05] VITALS: BP 131/69
[2018-08-24 13:36] LABS: WBC,FECAL (FECAL LACTOFERRIN) NEGATIVE (NEGATIVE)
[2018-08-24 16:39] LABS: C DIFFICILE TOXIN A&B AMP PROB NEGATIVE (NEGATIVE)
--- NOTE | 2018-10-03 21:29 | Operative Report ---
DATE OF PROCEDURE: September 03, 2018 REFERRING PHYSICIAN: Dr. Michael Moses. PROCEDURES PERFORMED: 1. Esophagogastroduodenoscopy with biopsies. 2. Colonoscopy with polypectomy. INDICATIONS FOR ESOPHAGOGASTRODUODENOSCOPY: Epigastric pain, nausea and heartburn. INDICATIONS FOR A SURVEILLANCE COLONOSCOPY: Personal history of colon polyps, history of intermittent diarrhea. MEDICATIONS: Patient was done under MAC. Please see anesthesiologist's note. PROCEDURE: With patient in left lateral decubitus position, a flexible fiberoptic Olympus gastroscope was introduced into the esophagus under direct visualization without any difficulty. There was some patchy erythema noted in distal esophagus. The scope was then advanced with ease into the stomach traversing a small sliding hiatal hernia. The mucosa overlying the antrum and the body revealed some patchy erythema and low-grade to moderate edema and biopsies were obtained, sent to stain for H. pylori. There was a mild pyloric channel stricture noted and that was dilated to a size 20 mm per TTS balloon dilators. The scope was then advanced with ease all way to the 2nd portion of the duodenum. The mucosa overlying the proximal 2nd portion and the duodenal bulb appeared to be within normal limits. The scope was then withdrawn back into the stomach and retroflexion of mucosa overlying the fundus and the cardia appeared to be within normal limits. The scope was then straightened out was subsequently withdrawn. Patient tolerated the procedure well. IMPRESSION: 1. Distal esophagitis, mild. 2. Small sliding hiatal hernia. 3. Gastritis, biopsied. Biopsies sent to stain for H. pylori. 4. 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 PLAN: 1. Follow up histology. 2. Initiate Protonix 40 mg 1 p.o. q.a.m. a.c. Patient was then turned around and after adequate lubrication of the anal canal, a flexible fiberoptic Olympus colonoscope was inserted into the rectum with ease and advanced all the way to the cecum. Mucosa overlying the cecum appeared to be within normal limits. The ileocecal valve was intubated and the scope was advanced into the terminal ileum. Biopsies were obtained. The scope was then withdrawn back into the colon. It was then withdrawn slowly. Mucosa overlying the ascending colon appeared to be within normal limits. One polyp was hot biopsied. One polyp was snared from the transverse colon. There was some patchy mild inflammatory changes noted in the left colon and the rectum and random biopsies were obtained. The scope was then retroflexed into the distal rectum and small internal hemorrhoids were noted, none of which was actively bleeding. The scope was then straightened out and was subsequently withdrawn. Patient tolerated the procedure well. IMPRESSION: 1. Suboptimal prep, colon irritable and spastic. 2. Transverse colon polyps x2, one snared and 1 hot biopsied. 3. Mild patchy left sided colitis. 4. Internal hemorrhoids, none actively bleeding. PLAN: 1. Follow up histology. 2. Initiate Bentyl 10 mg 1 p.o. t.i.d. and VSL#3 one p.o. daily. 3. Patient might benefit from a followup colonoscopy in 3 years. Job#: [id number] GE cc:MICHAEL MOSES MD
== END | disposition home or self-care (01) ==
LOC: OR 08:49
PROVIDERS: ATTEND Internal Medicine Gastroenterology
DX: K29.70 Gastritis, unspecified, without bleeding (principal); D12.3 Benign neoplasm of transverse colon; K31.1 Adult hypertrophic pyloric stenosis; K51.50 Left sided colitis without complications; K20.9 Esophagitis, unspecified; K44.9 Diaphragmatic hernia without obstruction or gangrene; K64.8 Other hemorrhoids; E11.22 Type 2 diabetes mellitus with diabetic chronic kidney disease; I12.0 Hypertensive chronic kidney disease with stage 5 chronic kidney disease or end stage renal disease; N18.6 End stage renal disease; I25.810 Atherosclerosis of coronary artery bypass graft(s) without angina pectoris; I25.2 Old myocardial infarction; Z01.812 Encounter for preprocedural laboratory examination; Z79.4 Long term (current) use of insulin; Z95.1 Presence of aortocoronary bypass graft; Z80.0 Family history of malignant neoplasm of digestive organs
CPT/HCPCS: 36415 ×3; 43239; 43245; 45380; 45384; 45385; 82948 ×2; 83630; 83993; 84132; 85025; 87045; 87177; 87328; 87493; 88305; 88312; C1726; J1610; J1980; J2250; J7040; 43450; 45378

== ENCOUNTER 2019-04-08 10:23 | Observation (INO) | payer MEDICARE ==
[~2019-04-08] VITALS: Ht 165.1 cm; Wt 72.6 kg
[~2019-04-08 10:23] MED LIST changes: -GLUCAGON FOR INJ 1 MG VIAL IV ONE; -HYOSCYAMINE SULFATE 0.5 MG/ML INJ IV ONE; -MIDAZOLAM HCL 2 MG/2 ML VIAL ONE; -PROPOFOL IV EMULSION 10 MG/ML 50 ML VIAL IV ONE; -SODIUM CHLORIDE 0.9% 500ML 500 ML ONE
--- OUTSIDE RECORDS SUMMARY | 2019-04-08 10:27 | XMS REPORT | Clinical Summary ---
Author Author JUHI [facility] Organization [facility] Address Unknown Phone Unavailable Care Team Providers Care Railway Track Plant Operator Name Role Phone Fatimah Be Ann Unavailable [...] mouth nightly. Active FA-vit Take by 0 Bcomp&C-qsfbknpi-efqm mouth. (FOLIC ACID-VITAMIN B COMPLEX-VITAMIN B-CJRKGIAR-TROP) 3-70-15 mg-mcg-mg Tab Active metoclopramide (REGLAN) 5 [...] 64) Sister Alive Siblings all live in [place] (ages 32 to 54) . Three have [...] INFLUENZA VACCINE 07/17/2018 Results Not on fileafter 04/07/2018 Insurance Payer Benefit Subscriber ID Type Phone Address Plan / Group AETNA - [employer]GD CARE AETNA HMO xxxxxxxxxx HMO/POS POS QPOS MEDICARE MEDICARE A xxxxxxxxxx Medicare B Advance Directives For more information, please contact: [phone] [place] [address] Date Inactivated Comments Code Status Date Activated 07/04/2014 12:45 PM Full Code 07/03/2014 7:30 AM This code status was determined by: Patient 03/23/2013 7:38 PM Code ONE 03/17/2013 12:14 AM
[2019-04-08] MEDS ORDERED: HYDROCODONE/APAP 10MG-325MG TAB PO ONE (10:45)
--- NOTE | 2019-04-08 11:10 | Diagnostic Imaging Report ---
Exam: Finger x-rays History: Pain in fourth finger, infection in fourth digit tip for one week Comparison: None. Findings: There is normal bone mineralization. No acute, displaced fracture or dislocation. Joint spaces relatively well preserved. No bony cortical erosion or destruction.. Soft tissue defect in the volar aspect of the fourth digit tip, with associated moderate soft tissue swelling.. Vascular calcifications. Impression: 1. Soft tissue defect in the volar aspect of the fourth digit tip, which may represent an ulceration. Associated moderate soft tissue swelling. No underlying bony erosion or cortical destruction to suggest osteomyelitis. Signed by: Dr. Ashwin Tripp M.D. on 04/08/2019 11:07 AM
[2019-04-08 11:13] LABS: BASOPHILS # (AUTO) 0.1 (0.0-0.1); BASOPHILS % 0.9 % (0.0-1.0); EOSINOPHILS # (AUTO) 0.3 (0.0-0.4); EOSINOPHILS % 4.2 % (0.0-6.0); HEMATOCRIT 36.5 % (38.2-49.6); HEMOGLOBIN 12.5 g/dL (14.0-18.0); LYMPHOCYTES # (AUTO) 0.9 (1.0-3.2); LYMPHOCYTES % 11.5 % (18.0-39.1); MEAN CORPUSCULAR HEMOGLOBIN 33.5 pg (28-32); MEAN CORPUSCULAR HGB CONC 34.2 g/dL (31-35); MEAN CORPUSCULAR VOLUME 97.9 fL (81-99); MONOCYTES # (AUTO) 0.4 (0.2-0.8); MONOCYTES % 5.4 % (4.4-11.3); NEUTROPHILS # (AUTO) 5.8 (2.1-6.9); NEUTROPHILS % 77.6 % (38.7-80.0); PLATELET COUNT 223 x10e3/uL (140-360); RED BLOOD COUNT 3.73 x10e6/uL (4.3-5.7); RED CELL DISTRIBUTION WIDTH 13.7 % (11.7-14.4)
[2019-04-08] MEDS ORDERED: MORPHINE SULFATE INJ 4 MG/ML INJ 1ML IV ONE (11:30)
[2019-04-08] MEDS ORDERED: ONDANSETRON HCL INJ 2MG/ML 2ML 2 MG/ML VIAL IV ONE ×2 (11:30→13:00)
[2019-04-08] MEDS ORDERED: ACETAMINOPHEN/CODEINE 300MG - 30MG TAB PO ONE (11:30)
[2019-04-08] MEDS ORDERED: CLINDAMYCIN PHOS 900MG/ 50ML 50 ML IV ONE ×2 (11:30→12:19)
[2019-04-08 11:34] LABS: ALBUMIN 4.2 g/dL (3.5-5.0); ALBUMIN/GLOBULIN RATIO 1.2 (0.8-2.0); ANION GAP 27.9 mmol/L (8-16); CALCIUM 9.2 mg/dL (8.4-10.2); CREATININE, SERUM 9.89 mg/dL (0.72-1.25)
[2019-04-08 11:56] LABS: POTASSIUM 5.9 mmol/L (3.5-5.1)
[2019-04-08] MEDS ORDERED: SODIUM BICARBONATE 8.4% INJ 50 ML SYR IV STA (11:58)
[2019-04-08] MEDS ORDERED: DEXTROSE 50% SYRINGE 50 ML IV STA (11:58)
[2019-04-08] MEDS ORDERED: SOD POLYSTYRENE SULFONATE SUSP 15 GM/60 ML BTL PO STA (11:58)
[2019-04-08] MEDS ORDERED: SODIUM CHLORIDE 0.9% 500ML 500 ML IV STA (11:58)
[2019-04-08] MEDS ORDERED: INSULIN REGULAR, HUMAN 100 UNIT/1 ML 3ML VIAL IV ONE (12:30)
[2019-04-08] MEDS ORDERED: CALCIUM GLUCONATE 10% INJ 4.65 MEQ in SODIUM CHLORIDE 0.9% 50ML 50 ML IV ONE (12:30)
[2019-04-08] MEDS ORDERED: ALBUTEROL SULF 0.083% NEB SOLN 3 ML NEB NEB ONE (12:30)
[2019-04-08] MEDS ORDERED: ONDANSETRON HCL INJ 2MG/ML 2ML 2 MG/ML VIAL ONE (12:32)
--- NOTE | 2019-04-08 12:34 | NUR ---
NOTIFIED RT OF NEBS.
--- NOTE | 2019-04-08 12:47 | NUR ---
INQUIRED REGARDING CHEM RESULTS, SPOKE WITH PAYTON WHO RAN LABS TWICE STATES NO HEMOLYZATION NOTED AND K+ IS ELEVATED 5.9 AND GAP 27. MD NOTIFIED AND STAT EKG AND ORDERS FOR MEDS. PT NOTIFIED OF RESULTS AND PLAN OF CARE. DENIES SOB, NO CP. ON FULL CARDIAC MONITORING IMMEDIATELY AFTER NOTIFIED OF RESULTS AT [facility].
--- OUTSIDE RECORDS SUMMARY | 2019-04-08 13:57 | XMS REPORT | Clinical Summary ---
Author Author JUHI [facility] Organization [facility] Address Unknown Phone Unavailable Care Team Providers Care Network Specialist Name Role Phone Fatimah Be Ann Unavailable [...] mouth nightly. Active FA-vit Take by 0 Bcomp&Z-jvlugxhl-axhp mouth. (FOLIC ACID-VITAMIN B COMPLEX-VITAMIN N-WRLCOABR-HCGQ) 3-70-15 mg-mcg-mg Tab Active metoclopramide (REGLAN) 5 [...] 64) Sister Alive Siblings all live in [place] (ages 32 to 54) . Three have [...] Advance Directives For more information, please contact: [phone] [place] [address] Date Inactivated Comments Code Status Date Activated 07/04/2014 12:45 PM Full Code 07/03/2014 7:30 AM This code status was determined by: Patient 03/23/2013 7:38 PM Code ONE 03/17/2013 12:14 AM
[2019-04-08 15:04] LABS: ALBUMIN 4.1 g/dL (3.5-5.0); ALBUMIN/GLOBULIN RATIO 1.4 (0.8-2.0); ANION GAP 28.6 mmol/L (8-16); CREATININE, SERUM 9.89 mg/dL (0.72-1.25); POTASSIUM 4.6 mmol/L (3.5-5.1)
[2019-04-08 16:34] VITALS: BP 165/82
== END 2019-04-08 16:35 | disposition home or self-care (01) ==
LOC: ER 10:23 → ERHOLD 13:53
DX: L03.012 Cellulitis of left finger (principal); S61.235A Puncture wound without foreign body of left ring finger without damage to nail, initial encounter; W27.0XXA Contact with workbench tool, initial encounter; Y92.009 Unspecified place in unspecified non-institutional (private) residence as the place of occurrence of the external cause; E87.6 Hypokalemia; E11.22 Type 2 diabetes mellitus with diabetic chronic kidney disease; I12.0 Hypertensive chronic kidney disease with stage 5 chronic kidney disease or end stage renal disease; N18.6 End stage renal disease; Z99.2 Dependence on renal dialysis; Z79.4 Long term (current) use of insulin; K21.9 Gastro-esophageal reflux disease without esophagitis; Z95.1 Presence of aortocoronary bypass graft
CPT/HCPCS: 36415; 73140; 80053; 83605; 83735; 85025; 93005; 99284; J0610; J1817; J2270; J2405; J7799; G0378

== ENCOUNTER 2019-09-02 11:12 | Inpatient (IN) | payer MEDICARE ==
[2019-09-02] VITALS (14 sets, daily range): BP systolic 124–154; BP diastolic 68–89
[~2019-09-02] VITALS: Ht 165.1 cm; Wt 62.6 kg
[2019-09-02 12:07] LABS: BASOPHILS # (AUTO) 0.1 (0.0-0.1); BASOPHILS % 0.7 % (0.0-1.0); EOSINOPHILS % 0.1 % (0.0-6.0); HEMATOCRIT 34.1 % (38.2-49.6); HEMOGLOBIN 11.5 g/dL (14.0-18.0); LYMPHOCYTES # (AUTO) 0.3 (1.0-3.2); LYMPHOCYTES % 1.9 % (18.0-39.1); MEAN CORPUSCULAR HEMOGLOBIN 33.7 pg (28-32); MEAN CORPUSCULAR HGB CONC 33.7 g/dL (31-35); MONOCYTES # (AUTO) 0.3 (0.2-0.8); MONOCYTES % 2.3 % (4.4-11.3); NEUTROPHILS # (AUTO) 12.6 (2.1-6.9); NEUTROPHILS % 94.3 % (38.7-80.0); PLATELET COUNT 237 x10e3/uL (140-360); RED BLOOD COUNT 3.41 x10e6/uL (4.3-5.7); RED CELL DISTRIBUTION WIDTH 13.9 % (11.7-14.4)
[2019-09-02 12:19] LABS: INR 1.19; PARTIAL THROMBOPLASTIN TIME 28.6 seconds (23.8-35.5); PROTHROMBIN TIME 15.7 seconds (11.9-14.5)
[2019-09-02] MEDS ORDERED: CEFTRIAXONE SOD 1 GM/NS 50 ML 50 ML IV SCH (12:30)
--- NOTE | 2019-09-02 12:46 | Diagnostic Imaging Report ---
EXAMINATION: PA and lateral views of the chest. COMPARISON: 07/16/2018 CLINICAL HISTORY: Cough and chest pain x2 weeks DISCUSSION: The lungs are well-inflated. There are patchy consolidations involving the right mid and lower lung as well as the left lower lung. Superimposed nodular opacities in the lingula are suspected. Stable cardiomediastinal contour status post median sternotomy. No acute osseous abnormality. No sizable pleural effusion. IMPRESSION: Findings suggestive of multifocal pneumonia in the clinical setting of cough and chest pain. Follow-up chest radiograph in 6-8 weeks is suggested to document stability or resolution. Persistence of findings should prompt CT scan of the chest at that time given suspected superimposed nodular opacities in the left lung. Signed by: Dr. Naldo Chaudhari M.D. on 09/02/2019 12:42 PM
[2019-09-02] MEDS ORDERED: SODIUM CHLORIDE 0.9% 500ML 500 ML IV ONE (13:15)
[2019-09-02] MEDS ORDERED: VANCOMYCIN HCL 1GM/NS 250 ML BAG IV ONE (13:15)
[2019-09-02] MEDS ORDERED: DEXTROSE 50% SYRINGE 50 ML IV PRN (13:15)
[2019-09-02] MEDS ORDERED: VANCOMYCIN 1GM/NS 250 ML 250 ML IV ONE (13:30)
[2019-09-02] MEDS ORDERED: MORPHINE SULFATE 2 MG/ML SYR 1ML ONE (13:38)
[2019-09-02] MEDS ORDERED: ONDANSETRON HCL INJ 2MG/ML 2ML 2 MG/ML VIAL ONE (13:39)
[2019-09-02] MEDS ORDERED: ONDANSETRON HCL INJ 2MG/ML 2ML 2 MG/ML VIAL IV NR (13:45)
[2019-09-02] MEDS ORDERED: MORPHINE SULFATE 2 MG/ML SYR 1ML IV NR (13:45)
[2019-09-02] MEDS: AZITHROMYCIN 500MG/NS 250 ML 250 ML IV SCH (13:48)
[2019-09-02 13:58] LABS: ALBUMIN 2.5 g/dL (3.5-5.0); ALBUMIN/GLOBULIN RATIO 0.5 (0.8-2.0); ALKALINE PHOSPHATASE 73 IU/L (40-150); ANION GAP 31.6 mmol/L (8-16); BLOOD UREA NITROGEN 70 mg/dL (7-26); BUN/CREATININE RATIO 7 (6-25); CALCIUM 10.2 mg/dL (8.4-10.2); CARBON DIOXIDE 19 mmol/L (22-29); CHLORIDE 84 mmol/L (98-107); CREATINE KINASE 23 IU/L (30-200); CREATININE, SERUM 9.75 mg/dL (0.72-1.25); EST GLOMERULAR FILTRATION RATE 6 ML/MIN (60-); GLUCOSE 179 mg/dL (74-118); MAGNESIUM 2.4 MG/DL (1.3-2.1); SODIUM 129 mmol/L (136-145)
[2019-09-02 14:05] LABS: ALANINE AMINOTRANSFERASE < 6 IU/L (0-55)
[2019-09-02 14:06] LABS: POTASSIUM 5.6 mmol/L (3.5-5.1)
[2019-09-02] MEDS ORDERED: ALBUTEROL SULF 0.083% NEB SOLN 3 ML NEB NEB SCH (15:00)
[2019-09-02 15:29] LABS: ABG HCO3 20 mmol/L (23-28); ABG PCO2 31 mmHg (41-51); ABG PH 7.42 (7.31-7.41); ABG PO2 84 mmHg (80-105)
[2019-09-02] MEDS: INSULIN LISPRO 100 UNIT/1 ML 3ML VIAL SQ SCH ×2 (16:30→21:00)
[2019-09-02 19:12] LABS: CREATINE KINASE MB 0.7 ng/mL (0-5.0)
[2019-09-02] MEDS: IPRATROPIUM BROMIDE 0.02% 2.5 ML NEB NEB SCH (19:20)
[2019-09-02] MEDS: ALBUTEROL SULF 0.083% NEB SOLN 3 ML NEB NEB SCH (19:20)
[2019-09-02 19:48] LABS: FREE THYROXINE INDEX 1.5709 (1.4-3.8); THYROID STIMULATING HORMONE 0.501 uIU/mL (0.350-4.940)
[2019-09-02] MEDS: CARVEDILOL 12.5 MG TAB PO SCH (20:53)
[2019-09-02] MEDS: SEVELAMER CARBONATE 800 MG TAB PO SCH (20:53)
--- NOTE | 2019-09-02 22:29 | Consultation ---
DATE OF CONSULTATION: Pulmonary Consultation HISTORY OF PRESENT ILLNESS: Patient of Dr. Vernon Omer, Dr. Moses, followed at the [facility], on dialysis for the last 9 years. He was admitted with chest pain, cough productive of clear sputum. He was found to have a bilateral pneumonia. He has a history of coronary bypass surgery, gallbladder surgery, AV fistula in the left arm. 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 FAMILY HISTORY: Positive for diabetes. SOCIAL HISTORY: He was born in . 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 PHYSICAL EXAMINATION: GENERAL: Well-developed white male, looking somewhat older than his stated age. VITAL SIGNS: Temperature 97.5, pulse 110, respirations 22 . HEAD: Normocephalic and atraumatic. NECK: Trachea midline. HEART: Regular rhythm. LUNGS: Bibasilar rales. ABDOMEN: Nontender. EXTREMITIES: AV fistula in the left arm. IMPRESSION: Severe pneumonia, possible hematogenous, bilateral infiltrates. CAT scan of the abdomen last year shows no evidence of [QAMARKER]. BiPAP as needed, supplemental oxygen . MD CATHY Combs/MODL /[id number]
[2019-09-03] VITALS (25 sets, daily range): BP systolic 94–160; BP diastolic 53–76
[2019-09-03] MEDS: IPRATROPIUM BROMIDE 0.02% 2.5 ML NEB NEB SCH ×4 (00:30→19:30)
[2019-09-03] MEDS: ALBUTEROL SULF 0.083% NEB SOLN 3 ML NEB NEB SCH ×4 (00:30→19:30)
[2019-09-03 05:14] LABS: BASOPHILS % 0.3 % (0.0-1.0); EOSINOPHILS % 0.1 % (0.0-6.0); HEMATOCRIT 28.8 % (38.2-49.6); HEMOGLOBIN 9.5 g/dL (14.0-18.0); LYMPHOCYTES # (AUTO) 0.4 (1.0-3.2); LYMPHOCYTES % 3.1 % (18.0-39.1); MEAN CORPUSCULAR HEMOGLOBIN 33.3 pg (28-32); MEAN CORPUSCULAR VOLUME 101.1 fL (81-99); MONOCYTES # (AUTO) 0.3 (0.2-0.8); MONOCYTES % 2.8 % (4.4-11.3); NEUTROPHILS # (AUTO) 10.7 (2.1-6.9); NEUTROPHILS % 92.8 % (38.7-80.0); PLATELET COUNT 209 x10e3/uL (140-360); RED BLOOD COUNT 2.85 x10e6/uL (4.3-5.7); RED CELL DISTRIBUTION WIDTH 12.9 % (11.7-14.4)
[2019-09-03 05:24] LABS: INR 1.2; PROTHROMBIN TIME 15.8 seconds (11.9-14.5)
[2019-09-03 05:31] LABS: ALBUMIN 1.9 g/dL (3.5-5.0); ALBUMIN/GLOBULIN RATIO 0.4 (0.8-2.0); ALKALINE PHOSPHATASE 58 IU/L (40-150); ANION GAP 24.5 mmol/L (8-16); BLOOD UREA NITROGEN 85 mg/dL (7-26); BUN/CREATININE RATIO 9 (6-25); CALCIUM 9.1 mg/dL (8.4-10.2); CARBON DIOXIDE 21 mmol/L (22-29); CHLORIDE 86 mmol/L (98-107); CREATININE, SERUM 9.87 mg/dL (0.72-1.25); EST GLOMERULAR FILTRATION RATE 6 ML/MIN (60-); GLUCOSE 174 mg/dL (74-118); POTASSIUM 5.5 mmol/L (3.5-5.1); SODIUM 126 mmol/L (136-145)
[2019-09-03 05:34] LABS: ALANINE AMINOTRANSFERASE < 6 IU/L (0-55)
--- NOTE | 2019-09-03 05:44 | Diagnostic Imaging Report ---
CT chest without enhancement CPT code: 18283 INDICATION: Committee acquired pneumonia TECHNIQUE: Thin collimation axial images obtained from the thoracic inlet to the level of the diaphragm without intravenous contrast. Dose reduction techniques used: Automated exposure control, adjustment of the mAs and/or kVp according to patient size, standardized low-dose protocol, and/or iterative reconstruction technique. RADIATION DOSE: Total DLP: 439.98 mGy*cm Estimated effective dose: (DLP x 0.015 x size factor) mSv CTDIvol has been reviewed. It is below the limits set by the Radiation Protocol Committee (RPC). COMPARISON: Chest x-ray 09/02/2019. CHEST FINDINGS: Lymph nodes: No enlarged axillary lymph nodes. A left supraclavicular lymph node measures 6 mm. Multiple mediastinal lymph nodes are prominent. A precarinal lymph node measures 1.3 x 2.2 cm. Subcarinal lymph node measures 1.5 x 1.8 cm. Lack of intravenous contrast evaluation of the mellissa for lymphadenopathy. Thyroid: Normal in size without mass in the visualized parenchyma. Mediastinum: The heart is mildly enlarged. Heavy calcifications of the aorta and coronary arteries. The main pulmonary artery measures 3.2 cm. No pericardial effusion. The esophagus is normal. Lungs: Right: Multifocal infiltrates in the upper, middle, and lower lobes, posterior aspects. Left: Large infiltrate in the superior segment and posterior segment of the lower lobe. Small amount of atelectasis/infiltrate in the base of the lower lobe. Airways: No endobronchial lesions. Pleura: No pleural effusion. ABDOMEN FINDINGS: Thickening of the adrenal glands. No mass or lymphadenopathy in the visualized portion of the upper abdomen. Bones: Median sternotomy is well opposed. Sternotomy margins are still visible. No focal osseous lesions. IMPRESSION: 1. Multifocal pulmonary infiltrates. Mediastinal lymphadenopathy is likely reactive. 2. Cardiomegaly. Enlarged main pulmonary artery suggestive of pulmonary artery hypertension. 3. Bilateral adrenal hyperplasia. Signed by: Dr. Hugh Sauceda MD on 09/03/2019 5:41 AM
[2019-09-03 05:53] LABS: CREATINE KINASE MB 1.4 ng/mL (0-5.0)
[2019-09-03] MEDS: INSULIN GLARGINE 100 UNITS/ML VIAL SQ SCH (07:30)
[2019-09-03] MEDS: INSULIN LISPRO 100 UNIT/1 ML 3ML VIAL SQ SCH ×4 (07:30→21:00)
[2019-09-03] MEDS: SEVELAMER CARBONATE 800 MG TAB PO SCH ×3 (08:25→21:00)
[2019-09-03] MEDS: MUPIROCIN 2% OINT 22 GM TUBE TOP SCH ×2 (08:25→16:13)
[2019-09-03] MEDS: AZITHROMYCIN 500MG/NS 250 ML 250 ML IV SCH (08:25)
[2019-09-03] MEDS ORDERED: LISINOPRIL 10 MG TAB PO SCH (09:00)
[2019-09-03] MEDS: CARVEDILOL 12.5 MG TAB PO SCH ×2 (09:00→21:00)
[2019-09-03] MEDS: AMLODIPINE BESYLATE 10 MG TAB PO SCH (09:00)
[2019-09-03] MEDS ORDERED: SODIUM CHLORIDE 0.9% 1000ML 2,000 ML ONE (09:20)
[2019-09-03] MEDS ORDERED: PIPER-TAZ 3.375 GM 50 ML IV SCH (12:00)
[2019-09-03] MEDS: PIPER-TAZ 3.375 GM 50 ML IV SCH ×2 (15:03→22:47)
--- NOTE | 2019-09-03 15:48 | NUR ---
Nutrition Screen Note RD Recommendation for Physician: - Continue current diet Plan of Care: RD following, monitoring for tolerance and adequacy Nutrition reason for involvement: Nutrition Risk Trigger- Dx of ESRD Primary Diagnose(s): ESRD on HD, hyperkalemia, hyponatremia PMH: ESRD on HD, CABG, gallbladder surgery, DM Ht: 65 in Wt: 138 lb BMI: 23 kg/m2 IBW: [address] Assessment: (09/03) 54 YOM admitted for ESRD and PNA. Pt seen today per admit dx of ESRD. Pt discussed during am rounds, new dx of PNA and currently on O2 per nasal canula. Pt with HD today. Pt reports good appetite and po intake PROGRAM DIR, 50% intake currently. Pt denies wt loss and denies N/V/C/D. Pt with no questions or concerns at time of visit, declined Nepro supplement. Chart reviewed. Labs and meds reviewed. Will continue to monitor. Current Diet: Renal, 1800 ADA Malnutrition Evaluation (09/03/19) The patient does not meet criteria for a specified degree of malnutrition at this time. Will re-evaluate at follow-up as appropriate. Diet Education Needs Assessment: Diet education not indicated at this time. Diet tolerance: tolerating Nutrition Care Level: Low Signed: Scarlet Charles RD, LD, [facility]
[2019-09-03] MEDS ORDERED: HYDROMORPHONE 2MG/ML 2 MG/ML ML IV PRN (16:30)
[2019-09-04] VITALS (15 sets, daily range): BP systolic 115–164; BP diastolic 63–89
[2019-09-04] MEDS: IPRATROPIUM BROMIDE 0.02% 2.5 ML NEB NEB SCH ×4 (01:02→19:30)
[2019-09-04] MEDS: ALBUTEROL SULF 0.083% NEB SOLN 3 ML NEB NEB SCH ×4 (01:02→19:30)
[2019-09-04] MEDS: PIPER-TAZ 3.375 GM 50 ML IV SCH ×2 (04:00→09:28)
[2019-09-04 05:14] LABS: BASOPHILS % 0.3 % (0.0-1.0); EOSINOPHILS # (AUTO) 0.1 (0.0-0.4); EOSINOPHILS % 0.7 % (0.0-6.0); HEMATOCRIT 29.1 % (38.2-49.6); HEMOGLOBIN 9.5 g/dL (14.0-18.0); LYMPHOCYTES # (AUTO) 0.6 (1.0-3.2); LYMPHOCYTES % 4.2 % (18.0-39.1); MEAN CORPUSCULAR HEMOGLOBIN 33.5 pg (28-32); MEAN CORPUSCULAR HGB CONC 32.6 g/dL (31-35); MEAN CORPUSCULAR VOLUME 102.5 fL (81-99); MONOCYTES # (AUTO) 0.5 (0.2-0.8); MONOCYTES % 3.5 % (4.4-11.3); NEUTROPHILS # (AUTO) 12.5 (2.1-6.9); NEUTROPHILS % 89.9 % (38.7-80.0); PLATELET COUNT 223 x10e3/uL (140-360); RED BLOOD COUNT 2.84 x10e6/uL (4.3-5.7); RED CELL DISTRIBUTION WIDTH 13.1 % (11.7-14.4)
[2019-09-04 05:41] LABS: ALBUMIN 2.1 g/dL (3.5-5.0); ALBUMIN/GLOBULIN RATIO 0.4 (0.8-2.0); ALKALINE PHOSPHATASE 70 IU/L (40-150); ANION GAP 20.8 mmol/L (8-16); BLOOD UREA NITROGEN 51 mg/dL (7-26); BUN/CREATININE RATIO 9 (6-25); CALCIUM 9.7 mg/dL (8.4-10.2); CARBON DIOXIDE 26 mmol/L (22-29); CHLORIDE 93 mmol/L (98-107); EST GLOMERULAR FILTRATION RATE 10 ML/MIN (60-); GLUCOSE 190 mg/dL (74-118); MAGNESIUM 2.5 MG/DL (1.3-2.1); PHOSPHORUS 7.5 MG/DL (2.3-4.7); POTASSIUM 4.8 mmol/L (3.5-5.1); SODIUM 135 mmol/L (136-145)
[2019-09-04 05:44] LABS: ALANINE AMINOTRANSFERASE < 6 IU/L (0-55)
[2019-09-04] MEDS: INSULIN LISPRO 100 UNIT/1 ML 3ML VIAL SQ SCH ×4 (07:30→20:14)
[2019-09-04] MEDS: INSULIN GLARGINE 100 UNITS/ML VIAL SQ SCH (07:30)
[2019-09-04] MEDS: AZITHROMYCIN 500MG/NS 250 ML 250 ML IV SCH (09:28)
[2019-09-04] MEDS: CARVEDILOL 12.5 MG TAB PO SCH ×2 (09:28→20:24)
[2019-09-04] MEDS: MUPIROCIN 2% OINT 22 GM TUBE TOP SCH ×2 (09:29→16:27)
[2019-09-04] MEDS: SEVELAMER CARBONATE 800 MG TAB PO SCH ×3 (09:29→20:24)
[2019-09-04] MEDS: AMLODIPINE BESYLATE 10 MG TAB PO SCH (09:29)
[2019-09-04] MEDS: LISINOPRIL 20 MG TAB PO SCH (09:29)
--- NOTE | 2019-09-04 10:51 | NUR ---
CONSULT CALLED FOR AT THIS TIME
[2019-09-04] MEDS ORDERED: TRAMADOL HCL 50 MG TAB PO PRN (11:00)
--- NOTE | 2019-09-04 12:27 | NUR ---
ORDER RECEIVED FOR LTAC EVAL. MET W THE PT AT THE BEDSIDE TO DISCUSS CHOICE. PT CALLED HIS LYNSEY TO DISCUSS CHOICE. PT CHOSE [facility]; AGREED. CHOICE LETTER WAS SIGNED. COPY TO CHART AND PT. NOTIFIED CAS BO OF EVAL.
--- NOTE | 2019-09-04 14:00 | NUR ---
PT TRANSFERRED TO ROOM 204
[2019-09-04] MEDS ORDERED: VANCOMYCIN 750MG/NS 150ML IVPB 150 ML IV SCH (15:00)
--- NOTE | 2019-09-04 18:35 | NUR ---
Per " Patient to have HD tomorrow. Notify HD center." Called [facility] and spoke with Nohemy.
--- NOTE | 2019-09-04 19:00 | NUR ---
received report from day nurse. patient is resting comfortably in bed. bed is in lowest position and call silva is within reach. will continue to monitor patient.
--- NOTE | 2019-09-04 19:05 | NUR ---
Report given to oncoming nurse of patient's status. Resting in bed, side rails upx2, call light within reach, bed alarm on. No s/s of acute distress noted.
--- NOTE | 2019-09-04 20:11 | Consultation ---
DATE OF CONSULTATION: REASON FOR CONSULTATION: Fever, chills, and pneumonia. HISTORY OF PRESENT ILLNESS: This patient, who is a 54-year-old male, history of end-stage renal disease on hemodialysis, history of hypertension, comes in with 2 weeks history of fever, chills, not feeling well. The patient took some oral antibiotic. He is not so sure what it is. He came here because he was originally in the intensive care unit, but today, he just left the ICU. He is still feeling bad. Of interest, his blood culture shows Streptococcus pneumoniae. Sensitivity is still pending. LABORATORY DATA: When he first came was white count 13.3, hemoglobin of 11.5, and his platelet 237. Sodium 135, potassium 4.8, and creatinine of 6. The patient had a CT of the chest, which showed multifocal infiltrate in the upper middle lower lobe posterior aspect, large infiltrate in the superior segment of lower lobe. PHYSICAL EXAMINATION: GENERAL: He is currently alert and oriented. Does not seem to be in acute distress. VITAL SIGNS: Stable, afebrile now. He has no fever since admission. HEENT: Normocephalic. Not icteric. NECK: Supple. CHEST: Few crackles bilateral. COR: S1 and S2. No S3, S4, or murmur. ABDOMEN: Soft. Bowel sounds present. No tenderness. EXTREMITIES: No edema. IMPRESSION: 1. Sepsis, present on admission, bacteremia, pneumonia with Streptococcus pneumoniae. Sensitivity is still pending. Recommend discontinue vancomycin, discontinue Zosyn. We will put him on vancomycin until we get sensitivity. We . 2. End-stage renal disease. 3. History of hypertension and anemia of chronic disease. Other medical problem as above seem to be stable. Chart reviewed. Events reviewed. Medication list also reviewed. MD REYMUNOD Rodriguez/MODL /[id number]
[2019-09-05 00:16] VITALS: BP 129/66
[2019-09-05] MEDS: IPRATROPIUM BROMIDE 0.02% 2.5 ML NEB NEB SCH ×4 (00:30→19:07)
[2019-09-05] MEDS: ALBUTEROL SULF 0.083% NEB SOLN 3 ML NEB NEB SCH ×4 (00:30→19:07)
[2019-09-05 05:03] LABS: BASOPHILS % 0.2 % (0.0-1.0); EOSINOPHILS # (AUTO) 0.1 (0.0-0.4); EOSINOPHILS % 0.7 % (0.0-6.0); HEMATOCRIT 28.5 % (38.2-49.6); HEMOGLOBIN 9.1 g/dL (14.0-18.0); LYMPHOCYTES # (AUTO) 0.6 (1.0-3.2); LYMPHOCYTES % 6.3 % (18.0-39.1); MEAN CORPUSCULAR HEMOGLOBIN 32.9 pg (28-32); MEAN CORPUSCULAR HGB CONC 31.9 g/dL (31-35); MEAN CORPUSCULAR VOLUME 102.9 fL (81-99); MONOCYTES # (AUTO) 0.4 (0.2-0.8); MONOCYTES % 4.4 % (4.4-11.3); NEUTROPHILS # (AUTO) 8.6 (2.1-6.9); NEUTROPHILS % 86.5 % (38.7-80.0); PLATELET COUNT 209 x10e3/uL (140-360); RED BLOOD COUNT 2.77 x10e6/uL (4.3-5.7)
[2019-09-05 05:22] VITALS: BP 153/78
[2019-09-05 05:23] LABS: ALANINE AMINOTRANSFERASE < 6 IU/L (0-55); ALBUMIN/GLOBULIN RATIO 0.4 (0.8-2.0); ALKALINE PHOSPHATASE 49 IU/L (40-150); ANION GAP 24.6 mmol/L (8-16); BLOOD UREA NITROGEN 75 mg/dL (7-26); BUN/CREATININE RATIO 10 (6-25); CARBON DIOXIDE 20 mmol/L (22-29); CHLORIDE 89 mmol/L (98-107); CREATININE, SERUM 7.68 mg/dL (0.72-1.25); EST GLOMERULAR FILTRATION RATE 7 ML/MIN (60-); GLUCOSE 192 mg/dL (74-118); MAGNESIUM 2.5 MG/DL (1.3-2.1); POTASSIUM 4.6 mmol/L (3.5-5.1); SODIUM 129 mmol/L (136-145)
[2019-09-05 06:20] LABS: PLATELET ESTIMATE ADEQUATE
[2019-09-05 06:21] LABS: PLATELET MORPHOLOGY COMMENT FEW LARGE; RBC MORPHOLOGY COMMENT NORMAL
--- NOTE | 2019-09-05 07:05 | NUR ---
RCD PT AT BED PT IS ALERT AND ORIENTED PT RESTING ON BED NO SIGNS OF ANY DISTRESS NOTED IV PATENT BY SALINE FLUSH BED LOW AND LOCKED CALL LIGHT IN REACH
--- NOTE | 2019-09-05 07:23 | NUR ---
report given to day nurse. patient is resting comfortably in bed. bed is in lowest position and call light is within reach.
[2019-09-05] MEDS: INSULIN LISPRO 100 UNIT/1 ML 3ML VIAL SQ SCH ×3 (07:30→16:30)
[2019-09-05] MEDS: INSULIN GLARGINE 100 UNITS/ML VIAL SQ SCH (07:30)
[2019-09-05 08:11] VITALS: BP 152/70
[2019-09-05 08:50] VITALS: BP 152/70
[2019-09-05] MEDS: AMLODIPINE BESYLATE 10 MG TAB PO SCH (09:00)
[2019-09-05] MEDS: CARVEDILOL 12.5 MG TAB PO SCH (09:00)
[2019-09-05] MEDS: LISINOPRIL 20 MG TAB PO SCH (09:00)
[2019-09-05] MEDS: SEVELAMER CARBONATE 800 MG TAB PO SCH ×2 (09:42→14:32)
[2019-09-05] MEDS: MUPIROCIN 2% OINT 22 GM TUBE TOP SCH ×2 (09:43→17:00)
[2019-09-05 11:53] VITALS: BP 127/67
--- NOTE | 2019-09-05 12:01 | NUR ---
LONG-TERM ACUTE CARE DISCHARGE INFORMATION PATIENT HAS BEEN ACCEPTED TO: [facility] [address] [place] [address] ACCEPTING AIR CONDITIONER INSTALLER HELPER: Noris Posadas ACCEPTING MD: Dr. Landry Omer ROOM: [id number] NURSE CALL REPORT TO: [phone] THE FOLLOWING DOCUMENTS MUST ACCOMPANY PATIENT FOR TRANSFER: copy of chart, transfer MAR COPIED CHART: ammunition components inspector MOT INFO RECEIVED FROM: Ingrid Brito PHYSICIANS ORDER/RECONCILED MED LIST: to be obtained by bedside RN [id number] DNR: n/a MOT completed and placed with pt's packet at nurse's station. MOLLY Sheridan was informed of MOT. Today's MAR was faxed to [phone], as requested by [place].
[2019-09-05] MEDS ORDERED: SODIUM CHLORIDE 0.9% 1000ML 2,000 ML ONE (13:55)
--- NOTE | 2019-09-05 14:30 | NUR ---
Dialysis started on pt at bedside
[2019-09-05] MEDS ORDERED: GENTAMICIN 60MG/NS 50ML 50 ML IV SCH (15:00)
[2019-09-05 17:02] VITALS: BP 139/61
--- NOTE | 2019-09-05 17:33 | NUR ---
Report called to [facility]. Report given to Rossi BARNES.
--- NOTE | 2019-09-05 18:51 | NUR ---
Pt resting in bed, no distress. Report given to the oncoming nurse.
[2019-09-06] MEDS ORDERED: CEFAZOLIN SOD 1 GM/NS 50ML 50 ML IV SCH (09:00)
== END 2019-09-05 20:04 | DRG 871 ==
LOC: ER 11:12 → ERHOLD 13:48 → ICU 15:19 → MED/SURG2 09-04 14:15
PROC: 5A1D70Z Performance of Urinary Filtration, Intermittent, Less than 6 Hours Per Day (ICD-10-PCS; principal; 2019-09-03)
PROC: 5A1D70Z Performance of Urinary Filtration, Intermittent, Less than 6 Hours Per Day (ICD-10-PCS; 2019-09-05)
DX: A40.3 Sepsis due to Streptococcus pneumoniae (principal); N18.6 End stage renal disease; J18.9 Pneumonia, unspecified organism; R65.20 Severe sepsis without septic shock; I12.0 Hypertensive chronic kidney disease with stage 5 chronic kidney disease or end stage renal disease; R09.02 Hypoxemia; E11.22 Type 2 diabetes mellitus with diabetic chronic kidney disease; Z99.2 Dependence on renal dialysis; Z95.1 Presence of aortocoronary bypass graft; K21.9 Gastro-esophageal reflux disease without esophagitis; Z88.5 Allergy status to narcotic agent; Z91.048 Other nonmedicinal substance allergy status; Z83.3 Family history of diabetes mellitus; Z82.49 Family history of ischemic heart disease and other diseases of the circulatory system; I25.10 Atherosclerotic heart disease of native coronary artery without angina pectoris; D63.8 Anemia in other chronic diseases classified elsewhere; Z79.4 Long term (current) use of insulin
CPT/HCPCS: 36415; 71046; 71250; 80053; 82550; 82553; 82607; 82805; 82948; 83090; 83605; 83735; 83880; 84100; 84436; 84443; 84479; 84484; 85025; 85610; 85730; 86704; 86706; 87040; 87070; 87071; 87186; 87205; 87340; 87400; 93005; 93306; 94640; 94660; 99284; J0456; J0696; J1580; J1815; J2270; J2405; J2543; J3370; J7030; J7040

== ENCOUNTER 2020-05-28 07:55 | Emergency (ER) | payer MEDICARE ==
[~2020-05-28] VITALS: Ht 165.1 cm; Wt 62.6 kg
--- OUTSIDE RECORDS SUMMARY | 2020-05-28 08:19 | XMS REPORT | Clinical Summary ---
Author Author [facility] Organization [facility] Address Unknown Phone Unavailable Care Team Providers Care Analytical Manager Name Role Phone Michael Moses MD PCP Allergies Comments Active Allergy Reactions Severity Noted Date No Known Drug Allergies 03/03/2016 Medications End Date Status Medication Sig Dispensed Refills Start Date Active atorvastatin (LIPITOR) 40 Take 40 mg by 0 MG tablet mouth. Active carvedilol (COREG) 25 MG Take 25 mg by 0 tablet mouth. Active insulin GLARGINE (LANTUS) Inject under 0 100 unit/mL injection the skin. Active lisinopril Take 20 mg by 0 (PRINIVIL,ZESTRIL) 20 MG mouth. tablet Active NON FORMULARY Metoprolol 0 succinate Active NON FORMULARY omeprazole 0 Active pantoprazole (PROTONIX) Take 40 mg by 0 40 MG EC tablet mouth. Active sevelamer (RENVELA) 800 Take 800 mg 0 mg tablet by mouth. Active Problems Not on file Encounters Care Team Description Date Type Specialty Lesa Preciado PA-C 04/24/2020 Documentation Cardiovascular Wilman Foster MD Hypervolemia 11/23/2019 Hospital Radiology Encounter Wilman Foster MD Hypervolemia (Primary Dx) 11/23/2019 Transcribe Access Orders Chani Aguillon MA Appointment 06/29/2019 Documentation Cardiovascular after 05/28/2019 Social History Date Tobacco Use Types Packs/Day Years Used Never Assessed Sex Assigned at Date Recorded Not on file Industry Job Start Date Occupation Not on file Not on file Not on file Travel End Travel History Travel Start No recent travel history available. 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 Intact median Sternotomy wires. Heart and mediastinum: Mild interval worsening cardiomegaly. Otherwise, unremarkable. Lungs: Ill-defined opacity seen in ri ght lower lobe either represents atelectasis versus scarring. There is n o evidence of pneumonia or pulmonary edema. Pleura: There is no pleural effusion or pneumothorax. Bones: Diffuse osteopenia. Minimal we dge deformities at lower thoracic levels. No acute osseous abnormality. 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 Intact median Sternotomy wires. Heart and mediastinum: Mild interval worsening cardiomegaly. Otherwise, unremarkable. Lungs: Ill-defined opacity seen in right lower lobe either represents atelectasis versus scarring. There is no evidence of pneumonia or pulmonary edema. Pleura: There is no pleural effusion or pneumothorax. Bones: Diffuse osteopenia. Minimal wedge deformities at lower thoracic levels. No acute osseous abnormality. [id number] Performing Organization Address City/State/Zipcode Ph one Number [facility] [address] [facility] 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
--- OUTSIDE RECORDS SUMMARY | 2020-05-28 08:19 | XMS REPORT | Clinical Summary ---
Author Author [facility] Organization [facility] Address Unknown Phone Unavailable Care Team Providers Care Prep Person Name Role Phone Fatimah Be Unavailable Unavailable Timothy Romo MD Unavailable Unavailable Brandt Davey MD Unavailable Unavailable Magda Ricci DO PCP Unavailable Fatimah Be 24 Unavailable Peter Vides MD [...] mouth nightly. Active FA-vit Take by 0 Bcomp&V-[id number]-cvfq mouth. (FOLIC ACID-VITAMIN B COMPLEX-VITAMIN [id number]) 3-70-15 mg-mcg-mg Tab Active metoclopramide (REGLAN) 5 [...] [place] (Age 77) Mother Med hx: DM C oD: diabetes-related (Age 64) Sister Alive Siblings all live i n [place] (ages 32 to 54) . Three have DM. One has HTN. Sister Alive Social History Date Tobacco Use Types Packs/Day Years Used Quit: 10/26/2012 Former Smoker Smokeless Tobacco: Never Used Comments: From age 13 to 47 - smoked 1/2 pack cigarettes each day. Alcohol Use Drinks/Week oz/Week Comments No Stopped drinking alcohol a/ o 12 (as of initiation of dialysis) From age 13 t o 47 drank 2 packs beer each week - (12 bottles ev tiffanie Tuesday or Tuesday / 1 day wk) Sex Assigned at Date Recorded Not on file Industry Job Start Date Occupation Not on file Not on file Not on file Travel End Travel History Travel Start No recent travel history available. Last Filed Vital Signs Not on file Plan of Treatment Not on file Results Not on fileafter 05/28/2019 Insurance Payer Benefit Subscriber ID Type Phone Address Plan / Group AETNA - MGD CARE AETNA HMO xxxxxxxxxx HMO/POS POS QPOS MEDICARE MEDICARE A xxxxxxxxxx Medicare B [phone] [id number] [facility] [place] amily (Home) [place] [address] Advance Directives For more information, please contact: [address] [address] Date Inactivated Comments Code Status Date Activated 07/04/2014 12:45 PM Full Code 07/03/2014 7:30 AM This code status was determined by: Patient 03/23/2013 7:38 PM Code ONE 03/17/2013 12:14 AM
--- OUTSIDE RECORDS SUMMARY | 2020-05-28 08:19 | XMS REPORT | Clinical Summary ---
Author Author [facility] Organization [facility] Address Unknown Phone Unavailable Care Team Providers Care Coffee Shop Manager Name Role Phone Muna Desai Resident PCP Unavailable Vic Powell MD PCP Allergies Comments Active Allergy Reactions Severity Noted Date Hydrocodone Nausea and 12/30/2015 Vomiting Medications End Date Status Medication Sig Dispensed Refills Start Date Active pantoprazole (PROTONIX) Take 40 mg by 0 40 mg delayed release mouth 2 times tablet daily . 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 ESRD (end stage renal disease) on dialysis Active sevelamer carbonate Take 4 496 tablet 11 (RENVELA) 800 mg tablets by 7 tabletIndications: ESRD mouth 3 times (end stage renal disease) daily with on dialysis meals And also take 2 tablets by mouth in the afternoon and 2 tablets at bedtime. Active atorvastatin (LIPITOR) 40 Take 1 tablet 90 tablet 1 mg tabletIndications: by mouth at 8 Other hyperlipidemia bedtime nightly. Active clotrimazole (LOTRIMIN) 1 Apply to 30 g 0 % topical affected area 8 creamIndications: Tinea 2 times pedis of both feet daily. Active hydrocortisone 1 % Apply to 30 g 2 ointmentIndications: affected area 9 Dermatitis 2 times daily. Active lisinopril (PRINIVIL, Take 1 tablet 30 tablet 0 ZESTRIL) 10 mg by mouth 9 tabletIndications: daily. Essential hypertension, benign 08/10/2019 Discontinued (Reorder) lisinopril (PRINIVIL, TAKE 1 TABLET 30 tablet 0 ZESTRIL) 10 mg BY MOUTH 8 tabletIndications: DAILY Essential hypertension, benign 08/07/2019 Discontinued (Reorder) hydrocortisone 1 % Apply to 30 g 0 01 ointmentIndications: affected area 9 Dermatitis 2 times daily. Active Problems Problem Noted Date Adenomatous polyp of transverse colon 11/20/2018 Diabetes mellitus 08/25/2015 Essential hypertension, benign 08/25/2015 Hyperlipidemia 08/25/2015 ESRD (end stage renal disease) on dialysis 5 AMI (acute myocardial infarction) 08/25/2015 Encounters Care Team Description Date Type Specialty Vic Powell MD Essential hypertension, benign 12/03/2019 Refill Family Practice Vic Powell MD Essential hypertension, benign 08/10/2019 Refill Family Practice Karen Ware MD Essential hypertension, benign 08/08/2019 Refill Family Practice Vic Powell MD Dermatitis (Primary Dx); Essential hypertension, benign 08/07/2019 Office Visit Family Practice after 05/28/2019 Immunizations Name Administration Dates Next Due Hepatitis A Vaccine 08/10/2011 Hepatitis B Vaccine 07/29/2013 Influenza Vaccine 08/03/2018 PPD 01/03/2015 PPV 23 Pneumococcal 10/05/2011 Polysaccaride Tdap (Tetanus Toxoid, 11/08/2017 Reduced Diphtheria Toxoid And Acellular Pertussis, Absorbed) Tdap Tetanus, diphtheria, 10/17/2005 acellular pertussis Vaccine Family History Medical History Relation Name Comments Cancer Father Gastric Diabetes Father Diabetes Mother Heart Mother Relation Name Status Comments Father Mother Social History Date Tobacco Use Types Packs/Day Years Used Light Tobacco Smoker Cigarettes 0.25 30 Drinks/Week oz/Week Comments Alcohol Use 6 Cans of beer 6.0 1 beer every 2 weeks Yes Sex Assigned at Date Recorded Not on file Industry Job Start Date Occupation Not on file Not on file Not on file Travel End Travel History Travel Start No recent travel history available. Last Filed Vital Signs Reading Time Taken Comments Vital Sign 150/90 08/07/2019 11:39 AM CDT Blood Pressure 80 08/07/2019 11:17 AM CDT Pulse 36.6 C (97.9 F) 08/07/2019 11:17 AM CDT Temperature 18 08/07/2019 11:17 AM CDT Respiratory Rate - - Oxygen Saturation - - Inhaled Oxygen Concentration 61.8 kg (136 lb 3.2 oz) 08/07/2019 11:17 AM CDT Weight 159.4 cm (5' 2.75") 08/07/2019 11:17 AM CDT Height 24.32 08/07/2019 11:17 AM CDT Body Mass Index Plan of Treatment Health Maintenance Due Date Last Done Comments DM Foot Exam (Yearly) 1982 DM HGBA1C (Yearly) 08/26/2016 08/26/2015 DM Retinal Exam (Yearly) 12/17/2016 12/18/2015 IMM Influenza Seasonal 07/17/2020 08/03/2018Jul to December (>/= 19 yrs) Colonoscopy 3yr 08/24/2021 08/24/2018 Results Not on fileafter 05/28/2019 Insurance Type Payer Benefit Subscriber ID Effective Phone Address Plan / Dates Group AARP MEDICARE COMPLETE AARP xxxxxxxxx 2015-P [address] MED[address]ARE [address] [id number] [place] [address] MEDICARE MEDICARE xxxxxxxxxx 2013-P [id number] [place] [address] MARIO QUIÑONES Personal/F Head of 1965 [id number] [facility] Household (Home) [place], [place] [address] (Self)
--- OUTSIDE RECORDS SUMMARY | 2020-05-28 08:20 | XMS REPORT | Continuity of Care Document ---
Author Author [facility] t Organization [facility] Address [address] [place] [address] Phone Unavailable Care Team Providers Care Retail Sales Manager Name Role Phone NONSTAFF PCP Unavailable Lluvia Preciado PA-C Attphys Andre BOLAND, Vic Attphys Cristian BOLAND, Minor Stovall Attphys GAY, SOUHEIL Attphys Unavailable Jeanie BOLAND, Karen Attphys Pal PRADHAN B Chani Attphys Unavailable KEREN, P EVA Attphys Unavailable DAHU, S JIRIES Attphys Unavailable GAY, SOUHEIL Admphys Unavailable DAHU, S JIRIES Admphys Unavailable Payers Payer Name Policy Type Policy Number Effective Date Expiration Date S ource MEDICAREMEDICARE PART A AND Bxxxxxxxxxxx2012-PresentCHARISMA HERRERAMedicare xxxxxxxxxxx 2013 00:00:00 Roger KESSLER MEDICARE COMPLETEAARP MEDICARE [id number] [address] [address] xxxxxxxxx 2015 00:00:00 Taiban Jerman [facility] MEDICAREMEDICARE PART A & [id number], [place] [address] xxxxxxxxxx 2013 00:00:00 [facility] VICTORIA [id number] 2018 00:00:00 [facility] Medicare A & B [id number] 2013 00:00:00 [facility] Condition Name Condition Details Condition Category Status Onset Date Resolution Date Last Treatment Date Treating Clinician Comments Source Adenomatous polyp of transverse colon Adenomatous polyp of t ransverse colon Disease Active 2018-11-20 00:00:00 [facility] Abdominal pain Abdominal pain Problem Active 2016-03-26 00:00:00 [facility] Peptic ulcer PUD (peptic ulcer disease) Problem Active 2016-03-26 00:00 :00 [facility] Diabetes mellitus Diabetes mellitus Disease Active 2015-08-25 00:00:00 [facility] Essential hypertension, benign Essential hypertension, benign Disea se Active 2015-08-25 00:00:00 [facility] Hyperlipidemia Hyperlipidemia Disease Active 2015-08-25 00:00:00 [facility] ESRD (end stage renal disease) on dialysis ESRD (end s tage renal disease) on dialysis Disease Active 2015-08-25 00:00:00 [facility] AMI (acute myocardial infarction) AMI (acute myocardial infarcti on) Disease Active 2015-08-25 00:00:00 [facility] End stage renal failure on dialysis ESRD (end stage renal di sease) on dialysis Problem Active 2015-03-25 00:00:00 [facility] Gastritis Gastritis Problem Active 2015-03-25 00:00:00 [facility] Hyperkalemia Hyperkalemia Problem Active 2015-03-25 00:00:00 [facility] Hypervolemia Volume overload Problem Active 2015-03-25 00:00:00 [facility] CAD (coronary artery disease) CAD (coronary artery disease) Disease Active 2014-07-03 00:00:00 [facility] Cellulitis and abscess of leg Cellulitis and abscess of leg Disease Active 2013-03-23 00:00:00 [facility] Abscess of right leg Abscess of right leg Disease Active 00:00:00 [facility] ESRD (end stage renal disease) ESRD (end stage renal disease) Disea se Active 2013-01-03 00:00:00 [facility] HTN (hypertension) HTN (hypertension) Disease Active 2013-01-03 00:00:0 0 [facility] Chronic cholecystitis without calculus Chronic cholecystitis without calculus Problem Active [facility] Urinary tract infection UTI (urinary tract infection) Problem Active [facility] Vomiting Vomiting Problem Active [facility] Hypoxia Hypoxia Problem Active [facility] Multifocal pneumonia Multifocal pneumonia Problem Active [facility] Sepsis Sepsis Problem Active [facility] Allergies, Adverse Reactions, Alerts Allergy Name Allergy Type Status Severity Reaction(s) Onset Date Inacti ve Date Treating Clinician Comments Source hydrocodone DA Active SV 2019-08-17 00:00:00 [facility] Hydrocodone Propensity to adverse reactions to drug Active Nausea and Vomiting 2015-12-30 00:00:00 [facility] Hydrocodone Allergy to Substance Active Moderate VOMITING 2014-12-05 00 :00:00 [facility] PLASTIC TAPE Allergy to Substance Active Mild BLISTERS 2014-12-05 00 :00:00 [facility] No Known Drug Allergies DA Active U 2014-08-21 00:00:00 [facility] Adhesive Tape Propensity to adverse reactions Active 30-06-17 00:00:[address] [facility] Hydrocodone Drug Allergy Active Nausea And Vomiting 2013-03-16 00: 00:00 [facility] Family History Family Member Diagnosis Comments Start Date Stop Date Source Natural father Cancer [facility] Natural father Diabetes [facility] Natural mother Diabetes [facility] Natural mother Heart [facility] Social History Social Habit Start Date Stop Date Quantity Comments Source History of tobacco use Cigarette Smoker [facility] Sex Assigned At [facility] Cigarettes smoked current (pack per day) - Reported 00:00:00 2018-11-16 00:00:00 [facility] Cigarette pack-years 2018-11-16 00:00:00 2018-11-16 00:00:00 [facility] Alcohol intake 2018-11-16 00:00:00 2018-11-16 00:00:00 Current drinker of alcohol (finding) [facility] Alcohol Comment 2016-12-02 00:00:00 2016-12-02 00:00:00 1 beer every 2 weeks [facility] Tobacco Comment 2013-06-26 00:00:00 2013-06-26 00:00:00 From age 13 to 47 - smoked 1/2 pack cigarettes each day. [facility] Smoking Status Start Date Stop Date Source Light tobacco smoker 2018-11-16 00:00:00 [facility] Former smoker 2014-07-04 00:00:00 2014-07-04 00:00:00 [facility] Medications Ordered Medication Name Filled Medication Name Start Date Stop Da te Current Medication? Ordering Clinician Indication Dosage Frequency Signature (SIG) Comments Components Source lisinopril (PRINIVIL, ZESTRIL) 10 mg tablet 2019-08-10 00:00 :00 Yes Essential hypertension, benign 10mg QD Take 1 tablet by mouth casi young [facility] hydrocortisone 1 % ointment 2019-08-07 00:00:00 Yes Dermatitis Q.5D Apply to affected area 2 times daily. [facility] hydrocortisone 1 % ointment 2018-11-16 00:00:00 2019-08-07 0 0:00:00 No Dermatitis Q.5D Apply to affected area 2 times daily. [facility] lisinopril (PRINIVIL, ZESTRIL) 10 mg tablet 2017 00:00:00 2019-08-10 00:00:00 No Essential hypertension, benign TAKE 1 T ABLET BY MOUTH DAILY [facility] clotrimazole (LOTRIMIN) 1 % topical cream 2018-08-08 00:00:0 0 Yes Tinea pedis of both feet Q.5D Apply to affected area 2 times daily. [facility] pantoprazole (PROTONIX) 40 mg delayed release tablet 2 14:05:06 Yes 40mg Q.5D Take 40 mg by mouth 2 times daily . [facility] atorvastatin (LIPITOR) 40 mg tablet 2017-11-08 00:00:00 Yes Other hyperlipidemia 40mg Take 1 tablet by mouth at bedtime nightly. [facility] sevelamer carbonate (RENVELA) 800 mg tablet 2016-12-02 00:00 :00 Yes ESRD (end stage renal disease) on dialysis 3200mg Q.[id number] Take 4 tablets by mouth 3 times daily with meals And also take 2 tablets by mouth in the afternoon and 2 tablets at bedtime. [facility] atorvastatin (LIPITOR) 40 MG tablet 2016-03-03 12:16:55 Yes 40mg Take 40 mg by mouth. Roger Jane carvedilol (COREG) 25 MG tablet 2016-03-03 12:16:55 Yes 25mg Take 25 mg by mouth. Roger Jane insulin GLARGINE (LANTUS) 100 unit/mL injection 2016-03-03 12:16 :55 Yes Inject under the skin. Eliceo Jane lisinopril (PRINIVIL,ZESTRIL) 20 MG tablet 2016-03-03 12:16:55 Yes 20mg Take 20 mg by mouth. Roger major NON FORMULARY 2016-03-03 12:16:55 Yes Metopr olol succinate Roger Jane NON FORMULARY 2016-03-03 12:16:55 Yes omepra zole Roger Jane pantoprazole (PROTONIX) 40 MG EC tablet 2016-03-03 12:16:55 Yes 40mg Take 40 mg by mouth. Roger Jane sevelamer (RENVELA) 800 mg tablet 2016-03-03 12:16:55 Yes 800mg Take 800 mg by mouth. Roger Jane B Complex-Vitamin C-Folic Acid (DIALYVITE 800) 0.8 mg per ta blet 2015-12-30 00:00:00 Yes ESRD (end stage renal disease) on dialys is 1{tbl} QD Take 1 tablet by mouth daily. [facility] ONETOUCH ULTRA TEST test strips 2015-09-23 00:00:00 Yes Type 2 diabetes mellitus with stage 3 chronic kidney disease CHECK BLOOD SUGAR AT LEAST ONCE DAILY [facility] carvedilol (COREG) 25 MG tablet 2014-07-03 07:58:46 Yes 25mg QD Take 25 mg by mouth daily. [facility] metoclopramide (REGLAN) 5 MG tablet 2014-07-03 07:58:46 Yes 5mg Take 5 mg by mouth as needed. [facility] insulin glargine (LANTUS) 100 unit/mL injection 2014-07-03 07:58 :46 Yes 50U QD Inject 50 Units subcutaneously every morning. Use as d irected [facility] FOLIC ACID/VITAMIN B COMP W-C (BEN-SLICK ORAL) 2013-06-26 07 :33:13 Yes Pre-transplant evaluation for ESRD (end stage renal disease) [facility] BCOMP&C/ZINC/VITAMIN D3 (DIALYVITE 800-ULTRA D ORAL) 2013-06-26 07:33:13 Yes Pre-transplant evaluation for ESRD ( end stage renal disease) Take by mouth. [facility] pantoprazole (PROTONIX) 40 MG tablet 2013-03-16 14:01:56 Ye s 40mg QD Take 40 mg by mouth daily. [facility] lisinopril (PRINIVIL,ZESTRIL) 20 MG tablet 2013-03-16 14:01:56 Yes 20mg QD Take 20 mg by mouth daily. [facility] mirtazapine (REMERON) 15 MG tablet 2013-03-16 14:01:56 Yes 15mg QD Take 15 mg by mouth nightly. [facility] FA-vit Bcomp&Y-btcyjvch-sqjr (FOLIC ACID -VITAMIN B COMPLEX-VITAMIN J-KRBYDHEJ-HODB) 3-70-15 mg-mcg-mg Tab 2013-03-16 14:01:56 Yes Take by mouth. [facility] sevelamer (RENVELA) 800 mg tablet 2013-03-16 14:01:55 Yes 1600mg Take 1,600 mg by mouth 3 (three) times daily with meals. [facility] atorvastatin (LIPITOR) 40 MG tablet 2013-03-16 14:01:55 Yes 40mg QD Take 40 mg by mouth nightly. [facility] Amlodipine Besylate 10 Mg Tablet Amlodipine Besylate 10 Mg Tablet Yes 10 Daily [facility] Carvedilol 12.5 Mg Tablet Carvedilol 12.5 Mg Tablet Yes 25 Twice A Day [facility] Insulin Glargine (Lantus) 100 Units/Ml Ml Insulin Glar gine (Lantus) 100 Units/Ml Ml Yes 5 Before Breakfast [facility] Lisinopril 10 Mg Tablet Lisinopril 10 Mg Tablet Yes 20 Daily [facility] Sevelamer Carbonate (Renvela) 0.8 Gm Powd.pack Sevelam er Carbonate (Renvela) 0.8 Gm Powd.pack Yes 1 Three Times A Day [facility] Atorvastatin Calcium 40 Mg Tablet, 40 Mg Oral Atorvast atin Calcium 40 Mg Tablet, 40 Mg Oral 2018-08-24 00:00:00 No 40 Bedtime [facility] Fa/Vit Bcomp&C/Zinc/Vitamin D3 (Dialyvit e 800-Ultra D Tablet) 1 Each Tablet, 1 Tab Oral Fa/Vit Bcomp&C/Zinc/Vitamin D3 (Dialyvit e 800-Ultra D Tablet) 1 Each Tablet, 1 Tab Oral 2018-08-24 00:00:00 No 1 Daily [facility] Levocetirizine Dihydrochloride (Xyzal) 5 Mg Tablet, 5 Mg Oral Levocetirizine Dihydrochloride (Xyzal) 5 Mg Tablet, 5 Mg Oral 2018-08-24 00:00:00 No 5 Daily [facility] Metoclopramide Hcl 10 Mg Tablet, 5 Mg Oral Metoclopram anamika Hcl 10 Mg Tablet, 5 Mg Oral 2018-08-24 00:00:00 No 5 Three Times A Day [facility] Pantoprazole Sodium (Protonix) 40 Mg Tablet.dr, 40 Mg Oral Pantoprazole Sodium (Protonix) 40 Mg Tablet.dr, 40 Mg Oral 2018-08-24 00:00:00 No 40 Twice A Day [facility] Sucralfate 1 G/10 Ml Susp, 10 Ml Oral Sucralfate 1 G/10 Ml Susp, 10 Ml Oral 2018-08-24 00:00:00 No 10 Three Times Daily Wi th Meals [facility] Velphoro , 500 Mg Oral Velphoro , 500 Mg Oral 2018-08-24 00:00:0 0 No 500 Three Times Daily With Meals [facility] Ciprofloxacin Hcl (Cipro) 500 Mg Tablet, 500 Mg Oral C iprofloxacin Hcl (Cipro) 500 Mg Tablet, 500 Mg Oral 2018-08-22 00:00:00 No 500 Every 12 Hours [facility] Clopidogrel Bisulfate (Plavix) 75 Mg Tablet, 75 Mg Ora l Clopidogrel Bisulfate (Plavix) 75 Mg Tablet, 75 Mg Oral 2018-08-22 00:00:00 No 75 Daily [facility] Metoclopramide Hcl 10 Mg Tablet, 10 Mg Oral Metoclopra mide Hcl 10 Mg Tablet, 10 Mg Oral 2018-08-22 00:00:00 No 10 Twice A Day [facility] Pantoprazole Sodium (Protonix) 40 Mg Tablet.dr, 40 Mg Oral Pantoprazole Sodium (Protonix) 40 Mg Tablet.dr, 40 Mg Oral 2016-03-26 00:00:00 No 40 Daily [facility] Sevelamer Carbonate (Renvela) 0.8 Gm Powd.pack, Oral Sevelamer Carbonate (Renvela) 0.8 Gm Powd.pack, Oral 2016-03-26 00:00:00 No Three Times Daily With Meals [facility] Clopidogrel Bisulfate (Plavix) 75 Mg Tablet, 75 Mg Ora l Clopidogrel Bisulfate (Plavix) 75 Mg Tablet, 75 Mg Oral 2016-01-07 00:00:00 No 75 Daily [facility] Insulin Glargine (Lantus 3ML Pen) 100 Units/1 Ml Inj, 10-25 Units Sub-Q Insulin Glargine (Lantus 3ML Pen) 100 Units/1 Ml Inj, 10-25 Units Sub-Q 2016-01-07 00:00:00 No Daily [facility] Diphenoxylate Hcl/Atropine (Diphenoxylat e-Atropine Tablet) 1 Each Tablet, 1 Tab Oral Diphenoxylate Hcl/Atropine (Diphenoxylat e-Atropine Tablet) 1 Each Tablet, 1 Tab Oral 2016-01-06 00:00:00 No 1 Three Times A D ay [facility] Hydralazine Hcl 25 Mg Tab, 25 Mg Oral Hydralazine Hcl 25 Mg Tab, 25 Mg Oral 2016-01-06 00:00:00 No 25 Three Times A Day [facility] Metronidazole (Flagyl) 250 Mg Tablet, 500 Mg Metronida zole (Flagyl) 250 Mg Tablet, 500 Mg 2016-01-06 00:00:00 No 500 Every 8 H ours [facility] Mirtazapine 15 Mg Tab, 15 Mg Oral Mirtazapine 15 Mg Tab, 15 Mg O ral 2016-01-06 00:00:00 No 15 Daily [facility] Ondansetron (Zofran Odt) 4 Mg Tab.rapdis, 4 Mg Oral On dansetron (Zofran Odt) 4 Mg Tab.rapdis, 4 Mg Oral 2016-01-06 00:00:00 No 4 Every 6 Hours [facility] Prednisolone Ac Opth , 1 Drop Ophthalmic Prednisolone Ac Opth , 1 Drop Ophthalmic 2016-01-06 00:00:00 No 1 Four Times Da ramses [facility] Trazodone Hcl 50 Mg Tablet, 50 Mg Oral Trazodone Hcl 50 Mg Table t, 50 Mg Oral 2016-01-06 00:00:00 No 50 Bedtime [facility] Acetaminophen 650 Mg Tablet, 650 Mg Oral Acetaminophen 650 Mg Tablet, 650 Mg Oral 2015-03-24 00:00:00 No 650 Every 4 Hours [facility] Aspirin (Aspir 81) 81 Mg Tablet., 81 Mg Oral Aspirin (Aspir 81) 81 Mg Tablet., 81 Mg Oral 2015-03-24 00:00:00 No 81 Da ramses [facility] Folic Acid/Vitamin B Comp W-C (Dialyvite 800 Tablet) 0 .8 Mg Tablet, 1 Tab Oral Folic Acid/Vitamin B Comp W-C (Dialyvite 800 Tablet) 0.8 Mg Tablet, 1 Tab Oral 2015-03-24 00:00:00 No 1 Daily [facility] Pantoprazole Sodium (Protonix) 40 Mg Tablet.dr, 40 Mg Oral Pantoprazole Sodium (Protonix) 40 Mg Tablet.dr, 40 Mg Oral 2015-03-24 00:00:00 No 40 Daily [facility] Clopidogrel Bisulfate (Plavix) 75 Mg Tablet, 75 Mg Ora Clopidogrel Bisulfate (Plavix) 75 Mg Tablet, 75 Mg Oral 2014-12-05 00:00:00 No 75 Daily [facility] Ferrous Sulfate 325 Mg Tablet, 325 Mg Oral Ferrous Sul fate 325 Mg Tablet, 325 Mg Oral 2014-12-05 00:00:00 No 325 Twice A Day [facility] Furosemide (Lasix) 20 Mg Tablet, 20 Mg Oral Furosemide (Lasix) 20 Mg Tablet, 20 Mg Oral 2014-12-05 00:00:00 No 20 Twice A Day [facility] Insulin Lisp Protam/Lisp Human (Humalog Mix 75-25 Vial) 100 Units/Ml Ml, 5 Units Sub-Q Insulin Lisp Protam/Lisp Human (Humalog Mix 75-25 Vial) 100 Units/Ml Ml, 5 Units Sub-Q 2014-12-05 00:00:00 No 5 Three Times A Day [facility] Isosorbide Mononitrate (Isosorbide Mononitrate Er) 30 Mg Tab.er.24h, 30 Mg Oral Isosorbide Mononitrate (Isosorbide Mononitrate Er) 30 Mg Tab.er.24h, 30 Mg Oral 2014-12-05 00:00:00 No 30 Daily [facility] Metoclopramide Hcl 10 Mg Tablet, 10 Mg Oral Metoclopra mide Hcl 10 Mg Tablet, 10 Mg Oral 2014-12-05 00:00:00 No 10 Three Times A Da y [facility] Minoxidil 2.5 Mg Tablet, 2.5 Mg Oral Minoxidil 2.5 Mg Tablet, 2. 5 Mg Oral 2014-12-05 00:00:00 No 2.5 Twice A Day [facility] Nifedipine (Nifedipine Er) 30 Mg Tab.er.24, 30 Mg Oral Nifedipine (Nifedipine Er) 30 Mg Tab.er.24, 30 Mg Oral 2014-12-05 00:00:00 No 30 Daily [facility] Nitroglycerin 0.4 Mg Tab.subl, 0.4 Mg Sublingual Nitro glycerin 0.4 Mg Tab.subl, 0.4 Mg Sublingual 2014-12-05 00:00:00 No .4 as [facility] Ondansetron Hcl (Zofran*) 4 Mg Tablet, 4 Mg Oral Ondan setron Hcl (Zofran*) 4 Mg Tablet, 4 Mg Oral 2014-12-05 00:00:00 No 4 as [facility] Sumatriptan Succinate 50 Mg Tablet, 50 Mg Oral Sumatri ptan Succinate 50 Mg Tablet, 50 Mg Oral 2014-12-05 00:00:00 No 50 Twice A Day [facility] Immunizations Ordered Immunization Name Filled Immunization Name Date Status Comments Source Influenza Vaccine 2018-08-03 00:00:00 Completed [facility] Tdap (Tetanus Toxoid, Reduced Diphtheria Toxoid And Acellular Pertussis, Absorbed) 2017-11-08 00:00:00 Completed [facility] PPD 2015-01-03 00:00:00 Completed [facility] Hepatitis B Vaccine 2013-07-29 00:00:00 Completed [facility] PPV 23 Pneumococcal Polysaccaride 2011-10-05 00:00:00 Comp leted [facility] Hepatitis A Vaccine 2011-08-10 00:00:00 Completed [facility] Tdap Tetanus, diphtheria, acellular pertussis Vaccine 2005-10-17 00:00:00 [facility] Vital Signs Vital Name Observation Time Observation Value Comments Source Systolic blood pressure 2019-08-07 11:39:00 150 mm[Hg] [facility] Diastolic blood pressure 2019-08-07 11:39:00 90 mm[Hg] [facility] Heart rate 2019-08-07 11:17:00 80 /min [facility] Body temperature 2019-08-07 11:17:00 36.61 [facility] Respiratory rate 2019-08-07 11:17:00 18 /min [facility] Body height 2019-08-07 11:17:00 159.4 cm [facility] Body weight 2019-08-07 11:17:00 61.78 kg [facility] BMI 2019-08-07 11:17:00 24.32 kg/m2 [facility] Procedures Procedure Date / Time Performed Performing Clinician Sourc e XR CHEST 2 VW 2019-11-23 12:11:22 Wilman Barnes [facility] ethodi Computed tomography of chest without contrast 2019-09-03 00:00:0 0 SUE MARTINEZ [facility] X-ray of chest, two views 2019-09-02 00:00:00 DOUGIE JIMENEZ [facility] Plan of Care Planned Activity Planned Date Details Comments Source [facility] Scheduled Test 2021-08-24 00:00:00 Screening for manisha gnant neoplasm of colon (procedure) [code = 022453229] [facility] Scheduled Test 2020-07-17 00:00:00 IMM Influenza Seas onal Jul to December (>/= 19 yrs) [code = IMM Influenza Seasonal Jul to December (>/= 19 yrs)] [facility] Scheduled Test 2020-06-17 00:00:00 INFLUENZA VACCINE [code = INFLUENZA VACCINE] [facility] Scheduled Test 2016-12-17 00:00:00 DM Retinal Exam (Y early) [code = DM Retinal Exam (Yearly)] [facility] Scheduled Test 2016-08-26 00:00:00 Hemoglobin A1c porsche surement (procedure) [code = 77650055] [facility] Scheduled Test 2014 00:00:00 COLONOSCOPY SCREEN ING [code = COLONOSCOPY SCREENING] [facility] Scheduled Test 2014 00:00:00 SHINGLES VACCINES (#1) [code = SHINGLES VACCINES (#1)] [facility] Scheduled Test 1982 00:00:00 DM Foot Exam (Year ly) [code = DM Foot Exam (Yearly)] [facility] Encounters Start Date/Time End Date/Time Encounter Type Admission Type Attendi ng Clinicians Care Facility Care Department Encounter ID Source 2019-11-23 00:00:00 2019-11-23 00:00:00 Outpatient [facility] [id number] [facility] 2019-09-02 13:48:00 2019-09-05 20:04:00 Discharged Inpatient 1 IMANI GAY [facility] [id number] [facility] 2019-04-08 13:53:00 2019-04-08 16:35:00 Discharged Inpatient (obs) 1 EVA VELIZ [facility] [id number] [facility] 2018-08-24 08:49:00 2018-08-24 08:49:00 Registered Surgical Day Care [facility] [id number] [facility] 2018-08-08 19:05:28 2018-08-08 19:05:28 Outpatient [facility] [id number] [facility] 2018-08-02 00:00:00 2018-08-02 00:00:00 Outpatient [facility] [id number] [facility] 2018-07-16 01:46:00 2018-07-19 11:19:00 Discharged Inpatient 1 OLEGARIO WEST [facility] [id number] [facility] 2018-06-07 00:00:00 2018-06-07 00:00:00 Outpatient [facility] [id number] [facility] 2018-02-13 00:00:00 2018-02-13 00:00:00 Outpatient [facility] [id number] [facility] 2018-02-07 13:54:09 2018-02-07 13:54:09 Outpatient [facility] [id number] [facility] 2018-01-31 10:22:00 2018-01-31 15:45:00 Departed Emergency Room [facility] [id number] [facility] 2018-01-31 00:00:00 2018-01-31 00:00:00 Outpatient [facility] [id number] [facility] 2017-11-30 00:00:00 2017-11-30 00:00:00 Outpatient [facility] [id number] [facility] 2017-11-22 12:50:44 2017-11-22 12:50:44 Outpatient [facility] [id number] [facility] 2017-11-08 13:46:46 2017-11-08 13:46:46 Outpatient [facility] [id number] [facility] 2017-10-03 00:00:00 2017-10-03 00:00:00 Outpatient [facility] [id number] [facility] 2017-10-01 23:29:00 2017-10-02 01:12:00 Departed Emergency Room [facility] [id number] [facility] 2016-12-02 11:24:54 2016-12-02 11:24:54 Outpatient [facility] [id number] [facility] Results Test Description Test Time Test Comments Results Result Comments Source XR Chest 2 Vw 2019-11-23 12:15:48 Hm Interface , Radiology Results 11/23/2019 12:18 PM CSTEXAMINATION: XR CHEST 2 VWCLINICAL HISTORY: E87.70 Fluid overload unspecified, hyperbolemiaXR CHEST 2 VW images are submittedCOMP ARISON: Chest x-rays dated May 23, 2014IMPRESSION: Negative for acute cardiopulmonary disease.Intact median Sternotomy wires.Heart and mediastinum: Mild interval worsening cardiomegaly. Otherwise, unremarkable.Lungs: Ill- defined opacity seen in right lower lobe either represents atelectasis versus scarring. There is no evidence of pneumonia or pulmonary edema.Pleura: There is no pleural effusion or pneumothorax.Bones: Diffuse osteopenia. Minimal wedge deformities at lower thoracic levels. No acute osseous abnormality.[id number] GLUBED 2019-10-13 17:47:00 Test Item GLUBED (test code = GLUBED) 93 mg/dL 74-106 N Performed by certified kick press operator at [facility] [id number] 06:31:00* Test Item Value Reference Range Interpretation Comments GLUBED (test code = GLUBED) 117 mg/dL 74-106 H Performed by certified kick press operator at [facility] [id number] 05:46:00* Test Item Value Reference Range Interpretation Comments GLUBED (test code = GLUBED) 68 mg/dL 74-106 L Performed by certified kick press operator at [facility] BASIC METABOLIC [id number] 03:25:00* Test Item Value Reference Range Interpretation Comments SODIUM (test code = NA) 138 mmol/L 136-145 N POTASSIUM (test code = K) 3.4 mmol/L 3.5-5.1 L CHLORIDE (test code = CL) 101.0 mmol/L 98-107 N CARBON DIOXIDE (test code = CO2) 31.0 mmol/L 21-32 N ANION GAP (test code = GAP) 9.4 10-20 L GLUCOSE (test code = GLU) 99 mg/dL 74-106 N BLOOD UREA NITROGEN (test code = BUN) 16 mg/dL 7-18 N GLOMERULAR FILTRATION RATE (test code = GFR) 15 mL/min >=60 Estimated GFR by using Modified MDRD formula.Chronic kidney disease is defined as either kidney damageor GFR <60 mL/min/1.73 m2 for >3 months. CREATININE (test code = CREAT) 4.20 mg/dL 0.7-1.3 H BUN/CREATININE RATIO (test code = BUN/CREA) 3.8 10-20 L CALCIUM (test code = CA) 8.1 mg/dL 8.5-10.1 L BASIC METABOLIC [id number] 03:11:00* Test Item Value Reference Range Interpretation Comments SODIUM (test code = NA) 138 mmol/L 136-145 N POTASSIUM (test code = K) 3.4 mmol/L 3.5-5.1 L CHLORIDE (test code = CL) 101.0 mmol/L 98-107 N CARBON DIOXIDE (test code = CO2) mmol/L 21-32 ANION GAP (test code = GAP) 10-20 GLUCOSE (test code = GLU) mg/dL 74-106 BLOOD UREA NITROGEN (test code = BUN) mg/dL 7-18 GLOMERULAR FILTRATION RATE (test code = GFR) mL/min >=60 CREATININE (test code = CREAT) mg/dL 0.7-1.3 BUN/CREATININE RATIO (test code = BUN/CREA) 10-20 CALCIUM (test code = CA) mg/dL 8.5-10.1 CBC W/AUTO [id number] 02:40:00* Test Item Value Reference Range Interpretation Comments WHITE BLOOD CELL (test code = WBC) 3.9 K/mm3 4.5-12.5 L RED BLOOD CELL (test code = RBC) 3.18 mill/mm3 4.0-5.8 L HEMOGLOBIN (test code = HGB) 9.9 gram/dL 13.0-17.5 L HEMATOCRIT (test code = HCT) 31.8 % 42.0-52.0 L MEAN CELL VOLUME (test code = MCV) 100.0 fL 80-98 H MEAN CELL HGB (test code = MCH) 31.1 picogram 27.0-33.0 N MEAN CELL HGB CONCETRATION (test code = MCHC) 31.1 gram/dL 33.0-36. 0 L RED CELL DISTRIBUTION WIDTH (test code = RDW) 13.1 % 11.6-16. 2 N RED CELL DISTRIBUTION WIDTH SD (test code = RDW-SD) 47.9 fL 37 .0-51.0 N PLATELET COUNT (test code = PLT) 140 K/mm3 150-450 L MEAN PLATELET VOLUME (test code = MPV) 10.8 fL 6.7-11.0 N NEUTROPHIL % (test code = NT%) 59.9 % 39.0-69.0 N IMMATURE GRANULOCYTE % (test code = IG%) 0.8 % 0.0-5.0 N LYMPHOCYTE % (test code = LY%) 19.8 % 25.0-55.0 L MONOCYTE % (test code = MO%) 6.9 % 0.0-10.0 N EOSINOPHIL % (test code = EO%) 11.8 % 0.0-5.0 H BASOPHIL % (test code = BA%) 0.8 % 0.0-1.0 N NUCLEATED RBC % (test code = NRBC%) 0.8 % 0-0 H NEUTROPHIL # (test code = NT#) 2.33 K/mm3 1.8-7.7 N IMMATURE GRANULOCYTE # (test code = IG#) 0.03 x10 3/uL 0-0.03 N LYMPHOCYTE # (test code = LY#) 0.77 K/mm3 1.0-5.0 L MONOCYTE # (test code = MO#) 0.27 K/mm3 0-0.8 N EOSINOPHIL # (test code = EO#) 0.46 K/mm3 0.0-0.5 N BASOPHIL # (test code = BA#) 0.03 K/mm3 0.0-0.2 N NUCLEATED RBC # (test code = NRBC#) 0.03 K/mm3 0.0-0.1 N MANUAL DIFF REQUIRED (test code = MDIFF) NO [id number] 20:37:00* Test Item Value Reference Range Interpretation Comments GLUBED (test code = GLUBED) 120 mg/dL 74-106 H Performed by certified kick press operator at [facility] [id number] 18:12:00* Test Item Value Reference Range Interpretation Comments GLUBED (test code = GLUBED) 111 mg/dL 74-106 H Performed by certified kick press operator at [facility] [id number] 14:32:00* Test Item Value Reference Range Interpretation Comments GLUBED (test code = GLUBED) 91 mg/dL 74-106 N Performed by certified kick press operator at [facility] [id number] 06:26:00* Test Item Value Reference Range Interpretation Comments GLUBED (test code = GLUBED) 90 mg/dL 74-106 N Performed by certified kick press operator at [facility] [id number] 20:59:00* Test Item Value Reference Range Interpretation Comments GLUBED (test code = GLUBED) 79 mg/dL 74-106 N Performed by certified kick press operator at [facility] [id number] 11:57:00* Test Item Value Reference Range Interpretation Comments GLUBED (test code = GLUBED) 122 mg/dL 74-106 H Performed by certified kick press operator at [facility] B-TYPE NATRIURETIC [id number] 10:50:00* Test Item Value Reference Range Interpretation Comments B-TYPE NATRIURETIC PEPTIDE (test code = BNP) 5230.1 pgram/mL 0-100 H [id number] 08:30:00* Test Item Value Reference Range Interpretation Comments GLUBED (test code = GLUBED) 64 mg/dL 74-106 L Performed by certified kick press operator at [facility] AG HEPAT B [id number] 07:08:00* Test Item Value Reference Range Interpretation Comments AG HEPAT B SURF (test code = HBSAG) Nonreactive Index Nonreactive BASIC METABOLIC [id number] 06:49:00* Test Item Value Reference Range Interpretation Comments SODIUM (test code = NA) 131 mmol/L 136-145 L POTASSIUM (test code = K) 4.7 mmol/L 3.5-5.1 N CHLORIDE (test code = CL) 93.0 mmol/L 98-107 L CARBON DIOXIDE (test code = CO2) 24.0 mmol/L 21-32 N ANION GAP (test code = GAP) 18.7 10-20 N GLUCOSE (test code = GLU) 77 mg/dL 74-106 N BLOOD UREA NITROGEN (test code = BUN) 43 mg/dL 7-18 H GLOMERULAR FILTRATION RATE (test code = GFR) 7 mL/min >=60 Estimated GFR by using Modified MDRD formula.Chronic kidney disease is defined as either kidney damageor GFR <60 mL/min/1.73 m2 for >3 months. CREATININE (test code = CREAT) 8.00 mg/dL 0.7-1.3 H BUN/CREATININE RATIO (test code = BUN/CREA) 5.4 10-20 L CALCIUM (test code = CA) 8.1 mg/dL 8.5-10.1 L LIPID PROFILE (CORONARY RISK)2019-10-11 06:49:00* Test Item Value Reference Range Interpretation Comments TRIGLYCERIDES (test code = TRIG) 87 mg/dL 20-150 N CHOLESTEROL (test code = CHOL) 145 mg/dL 0-200 N CHOLESTEROL/HDL RATIO (test code = CHOLHDL) 2.0 RATIO 0-4.9 N RISK ASSOCIATED WITH CHOL/HDL RATIOS: Risk Male Female1/2 AVERAGE 3.43 3.27AVERAGE 4.97 4.442X AVERAGE 9.55 7.053X AVERAGE 23.39 11.04 REFERENCE VALUE IS RELATED TO RISK LEVELS ASRECOMMENDED BY THE BAIRON. HEART, LUNG, AND BLOOD INST. HDL CHOLESTEROL (test code = HDL) 54 mg/dL 40-60 N LIPOPROTEIN LDL (test code = LDL) 86 mg/dL 100-129 L Reference Interval: mg/dL mmol/L Optimal <100 <2.6Near/above optimal 100-129 2.6- 3.3Borderline High 130-159 3.4-4.1High 160-189 4.1-4.9Very High >=190 >=4.9========= This LDL result is a direct measurement.========= CBC W/MANUAL [id number] 06:42:00* Test Item Value Reference Range Interpretation Comments WHITE BLOOD CELL (test code = WBC) 7.4 K/mm3 4.5-12.5 N RED BLOOD CELL (test code = RBC) 2.82 mill/mm3 4.0-5.8 L HEMOGLOBIN (test code = HGB) 9.0 gram/dL 13.0-17.5 L HEMATOCRIT (test code = HCT) 28.3 % 42.0-52.0 L MEAN CELL VOLUME (test code = MCV) 100.4 fL 80-98 H MEAN CELL HGB (test code = MCH) 31.9 picogram 27.0-33.0 N MEAN CELL HGB CONCETRATION (test code = MCHC) 31.8 gram/dL 33.0-36. 0 L RED CELL DISTRIBUTION WIDTH (test code = RDW) 13.2 % 11.6-16. 2 N RED CELL DISTRIBUTION WIDTH SD (test code = RDW-SD) 48.7 fL 37 .0-51.0 N PLATELET COUNT (test code = PLT) 153 K/mm3 150-450 N MEAN PLATELET VOLUME (test code = MPV) 10.7 fL 6.7-11.0 N NEUTROPHIL % (test code = NT%) 83.7 % 39.0-69.0 H IMMATURE GRANULOCYTE % (test code = IG%) 0.5 % 0.0-5.0 N LYMPHOCYTE % (test code = LY%) 11.6 % 25.0-55.0 L MONOCYTE % (test code = MO%) 3.8 % 0.0-10.0 N EOSINOPHIL % (test code = EO%) 0.0 % 0.0-5.0 N BASOPHIL % (test code = BA%) 0.4 % 0.0-1.0 N NUCLEATED RBC % (test code = NRBC%) 0.0 % 0-0 N NEUTROPHIL # (test code = NT#) 6.22 K/mm3 1.8-7.7 N IMMATURE GRANULOCYTE # (test code = IG#) 0.04 x10 3/uL 0-0.03 H LYMPHOCYTE # (test code = LY#) 0.86 K/mm3 1.0-5.0 L MONOCYTE # (test code = MO#) 0.28 K/mm3 0-0.8 N EOSINOPHIL # (test code = EO#) 0.00 K/mm3 0.0-0.5 N BASOPHIL # (test code = BA#) 0.03 K/mm3 0.0-0.2 N NUCLEATED RBC # (test code = NRBC#) 0.00 K/mm3 0.0-0.1 N STAIN ACCEPTABILITY (test code = STN ACCEPTABLE) STAIN ACCEPTABLE TOTAL CELLS COUNTED (test code = TCC) 115 #CELLS SEGMENTED NEUTROPHILS (test code = SEG) 89.6 % 39-69 H BAND NEUTROPHIL (test code = BAND) 1.7 % 0-10 N LYMPHOCYTE (test code = LYMPH) 6.9 % 25-55 L REACTIVE LYMPH (test code = RELYMPH) 0 % MONOCYTE (test code = MON) 0 % 0-10 N EOSINOPHIL (test code = EOS) 0 % 0.0-5.0 N BASOPHIL (test code = BASO) 0.9 % 0-1.0 N METAMYELOCYTE (test code = META) 0.9 % 0-0 H MYELOCYTE (test code = MYELO) 0 % 0.0-0.0 N PROMYELOCYTE (test code = PROM) 0 % 0-0 N POIKILOCYTOSIS (test code = POIK) 1+ ANISOCYTOSIS (test code = ANISO) 1+ MACROCYTOSIS (test code = MACR) 1+ CRENATED CELLS (test code = CREN) 1+ PLATELET ESTIMATE (test code = PLTEST) ADEQUATE PLATELET MORPHOLOGY (test code = PLTMORPH) NORMAL IMMATURE FORMS (test code = IMMAT) 0 % 0-0 N BASIC METABOLIC [id number] 06:31:00* Test Item Value Reference Range Interpretation Comments SODIUM (test code = NA) 131 mmol/L 136-145 L POTASSIUM (test code = K) 4.7 mmol/L 3.5-5.1 N CHLORIDE (test code = CL) 93.0 mmol/L 98-107 L CARBON DIOXIDE (test code = CO2) mmol/L 21-32 ANION GAP (test code = GAP) 10-20 GLUCOSE (test code = GLU) mg/dL 74-106 BLOOD UREA NITROGEN (test code = BUN) mg/dL 7-18 GLOMERULAR FILTRATION RATE (test code = GFR) mL/min >=60 CREATININE (test code = CREAT) mg/dL 0.7-1.3 BUN/CREATININE RATIO (test code = BUN/CREA) 10-20 CALCIUM (test code = CA) mg/dL 8.5-10.1 LIPID PROFILE (CORONARY RISK)2019-10-11 06:31:00* Test Item Value Reference Range Interpretation Comments TRIGLYCERIDES (test code = TRIG) mg/dL 20-150 CHOLESTEROL (test code = CHOL) mg/dL 0-200 CHOLESTEROL/HDL RATIO (test code = CHOLHDL) RATIO 0-4.9 HDL CHOLESTEROL (test code = HDL) mg/dL 40-60 LIPOPROTEIN LDL (test code = LDL) mg/dL 100-129 [id number] 06:28:00* Test Item Value Reference Range Interpretation Comments GLYCOSYLATED HEMOGLOBIN (HA1C) (test code = GLYHGB) 6.0 % HbA1 SUGGESTED DIAGNOSIS: HbA1C (%) Diabetic >6.4Prediabetes 5.7 - 6.4Normal <5.7 ESTIMATED AVERAGE GLUCOSE (test code = EAG) 126 MG/DL PROTHROMBIN [id number] 06:24:00* Test Item Value Reference Range Interpretation Comments PROTHROMBIN TIME PATIENT (test code = PTP) 17.6 seconds 9.0-14.0 H INTERNATIONAL NORMAL RATIO (test code = INR) 1.5 0.8-1.2 H The therapeutic range for oral anticoagulant therapy formost indications is an international normalized ratio (INR)of between 2.0 and 3.0. The recommended therapeutic INRrange for various clinical situations is listed below: Clinical Situation INR range Pulmonary e mbolism treatment (2.0-3.0)Venous thrombosis treatmentVenous thrombosis prophylaxis (high risk surgery)Prevention of systemic embolism from: Acute myocardial infarction Valvular heart disease Atrial fibrillation Mechanical prosthetic heart valves (2.5-3.5) IS PATIENT ON ANTICOAGULANTS? NTHROMBOPLASTIN TIME [id number] 06:24:00* Test Item Value Reference Range Interpretation Comments THROMBOPLASTIN TIME PARTIAL (test code = PTT) 37.6 seconds 25.0-36. 5 H IS PATIENT ON ANTICOAGULANTS? NCBC W/MANUAL [id number] 06:07:00* Test Item Value Reference Range Interpretation Comments WHITE BLOOD CELL (test code = WBC) 7.4 K/mm3 4.5-12.5 N RED BLOOD CELL (test code = RBC) 2.82 mill/mm3 4.0-5.8 L HEMOGLOBIN (test code = HGB) 9.0 gram/dL 13.0-17.5 L HEMATOCRIT (test code = HCT) 28.3 % 42.0-52.0 L MEAN CELL VOLUME (test code = MCV) 100.4 fL 80-98 H MEAN CELL HGB (test code = MCH) 31.9 picogram 27.0-33.0 N MEAN CELL HGB CONCETRATION (test code = MCHC) 31.8 gram/dL 33.0-36. 0 L RED CELL DISTRIBUTION WIDTH (test code = RDW) 13.2 % 11.6-16. 2 N RED CELL DISTRIBUTION WIDTH SD (test code = RDW-SD) 48.7 fL 37 .0-51.0 N PLATELET COUNT (test code = PLT) 153 K/mm3 150-450 N MEAN PLATELET VOLUME (test code = MPV) 10.7 fL 6.7-11.0 N NEUTROPHIL % (test code = NT%) 83.7 % 39.0-69.0 H IMMATURE GRANULOCYTE % (test code = IG%) 0.5 % 0.0-5.0 N LYMPHOCYTE % (test code = LY%) 11.6 % 25.0-55.0 L MONOCYTE % (test code = MO%) 3.8 % 0.0-10.0 N EOSINOPHIL % (test code = EO%) 0.0 % 0.0-5.0 N BASOPHIL % (test code = BA%) 0.4 % 0.0-1.0 N NUCLEATED RBC % (test code = NRBC%) 0.0 % 0-0 N NEUTROPHIL # (test code = NT#) 6.22 K/mm3 1.8-7.7 N IMMATURE GRANULOCYTE # (test code = IG#) 0.04 x10 3/uL 0-0.03 H LYMPHOCYTE # (test code = LY#) 0.86 K/mm3 1.0-5.0 L MONOCYTE # (test code = MO#) 0.28 K/mm3 0-0.8 N EOSINOPHIL # (test code = EO#) 0.00 K/mm3 0.0-0.5 N BASOPHIL # (test code = BA#) 0.03 K/mm3 0.0-0.2 N NUCLEATED RBC # (test code = NRBC#) 0.00 K/mm3 0.0-0.1 N STAIN ACCEPTABILITY (test code = STN ACCEPTABLE) TOTAL CELLS COUNTED (test code = TCC) #CELLS SEGMENTED NEUTROPHILS (test code = SEG) % 39-69 LYMPHOCYTE (test code = LYMPH) % 25-55 MONOCYTE (test code = MON) % 0-10 MORPHOLOGY COMMENT (test code = MOC) PLATELET ESTIMATE (test code = PLTEST) PLATELET MORPHOLOGY (test code = PLTMORPH) [id number] 20:22:00* Test Item Value Reference Range Interpretation Comments GLUBED (test code = GLUBED) 132 mg/dL 74-106 H Performed by certified kick press operator at [facility] [id number] 16:34:00* Test Item Value Reference Range Interpretation Comments GLUBED (test code = GLUBED) 174 mg/dL 74-106 H Performed by certified kick press operator at [facility] [id number] 11:58:00* Test Item Value Reference Range Interpretation Comments GLUBED (test code = GLUBED) 112 mg/dL 74-106 H Performed by certified kick press operator at [facility]2019-12-25 09:47:00* Test Item Value Reference Range Interpretation Comments GLUBED (test code = GLUBED) 143 mg/dL 74-106 H Performed by certified kick press operator at [facility] BASIC METABOLIC [id number] 09:02:00* Test Item Value Reference Range Interpretation Comments SODIUM (test code = NA) 133 mmol/L 136-145 L POTASSIUM (test code = K) 4.6 mmol/L 3.5-5.1 N CHLORIDE (test code = CL) 97.0 mmol/L 98-107 L CARBON DIOXIDE (test code = CO2) 23.0 mmol/L 21-32 N ANION GAP (test code = GAP) 17.6 10-20 N GLUCOSE (test code = GLU) 60 mg/dL 74-106 L BLOOD UREA NITROGEN (test code = BUN) 24 mg/dL 7-18 H GLOMERULAR FILTRATION RATE (test code = GFR) 10 mL/min >=60 Estimated GFR by using Modified MDRD formula.Chronic kidney disease is defined as either kidney damageor GFR <60 mL/min/1.73 m2 for >3 months. CREATININE (test code = CREAT) 6.10 mg/dL 0.7-1.3 H BUN/CREATININE RATIO (test code = BUN/CREA) 3.9 10-20 L CALCIUM (test code = CA) 8.1 mg/dL 8.5-10.1 L LIPID PROFILE (CORONARY RISK)2019-10-10 09:02:00* Test Item Value Reference Range Interpretation Comments TRIGLYCERIDES (test code = TRIG) 97 mg/dL 20-150 N CHOLESTEROL (test code = CHOL) 151 mg/dL 0-200 N CHOLESTEROL/HDL RATIO (test code = CHOLHDL) 3.0 RATIO 0-4.9 N RISK ASSOCIATED WITH CHOL/HDL RATIOS: Risk Male Female1/2 AVERAGE 3.43 3.27AVERAGE 4.97 4.442X AVERAGE 9.55 7.053X AVERAGE 23.39 11.04 REFERENCE VALUE IS RELATED TO RISK LEVELS ASRECOMMENDED BY THE BAIRON. HEART, LUNG, AND BLOOD INST. HDL CHOLESTEROL (test code = HDL) 50 mg/dL 40-60 N LIPOPROTEIN LDL (test code = LDL) 90 mg/dL 100-129 L Reference Interval: mg/dL mmol/L Optimal <100 <2.6Near/above optimal 100-129 2.6- 3.3Borderline High 130-159 3.4-4.1High 160-189 4.1-4.9Very High >=190 >=4.9========= This LDL result is a direct measurement.========= [id number] 08:13:00* Test Item Value Reference Range Interpretation Comments GLUBED (test code = GLUBED) 69 mg/dL 74-106 L Performed by certified kick press operator at [facility] [id number] 07:30:00* Test Item Value Reference Range Interpretation Comments GLYCOSYLATED HEMOGLOBIN (HA1C) (test code = GLYHGB) 5.8 % HbA1 SUGGESTED DIAGNOSIS: HbA1C (%) Diabetic >6.4Prediabetes 5.7 - 6.4Normal <5.7 ESTIMATED AVERAGE GLUCOSE (test code = EAG) 120 MG/DL CBC W/AUTO [id number] 07:21:00* Test Item Value Reference Range Interpretation Comments WHITE BLOOD CELL (test code = WBC) 5.2 K/mm3 4.5-12.5 N RED BLOOD CELL (test code = RBC) 2.80 mill/mm3 4.0-5.8 L HEMOGLOBIN (test code = HGB) 8.9 gram/dL 13.0-17.5 L HEMATOCRIT (test code = HCT) 28.7 % 42.0-52.0 L MEAN CELL VOLUME (test code = MCV) 102.5 fL 80-98 H MEAN CELL HGB (test code = MCH) 31.8 picogram 27.0-33.0 N MEAN CELL HGB CONCETRATION (test code = MCHC) 31.0 gram/dL 33.0-36. 0 L RED CELL DISTRIBUTION WIDTH (test code = RDW) 13.0 % 11.6-16. 2 N RED CELL DISTRIBUTION WIDTH SD (test code = RDW-SD) 48.8 fL 37 .0-51.0 N PLATELET COUNT (test code = PLT) 172 K/mm3 150-450 N MEAN PLATELET VOLUME (test code = MPV) 10.6 fL 6.7-11.0 N NEUTROPHIL % (test code = NT%) 64.3 % 39.0-69.0 N IMMATURE GRANULOCYTE % (test code = IG%) 0.2 % 0.0-5.0 N LYMPHOCYTE % (test code = LY%) 17.0 % 25.0-55.0 L MONOCYTE % (test code = MO%) 13.7 % 0.0-10.0 H EOSINOPHIL % (test code = EO%) 3.1 % 0.0-5.0 N BASOPHIL % (test code = BA%) 1.7 % 0.0-1.0 H NUCLEATED RBC % (test code = NRBC%) 0.0 % 0-0 N NEUTROPHIL # (test code = NT#) 3.32 K/mm3 1.8-7.7 N IMMATURE GRANULOCYTE # (test code = IG#) 0.01 x10 3/uL 0-0.03 N LYMPHOCYTE # (test code = LY#) 0.88 K/mm3 1.0-5.0 L MONOCYTE # (test code = MO#) 0.71 K/mm3 0-0.8 N EOSINOPHIL # (test code = EO#) 0.16 K/mm3 0.0-0.5 N BASOPHIL # (test code = BA#) 0.09 K/mm3 0.0-0.2 N NUCLEATED RBC # (test code = NRBC#) 0.00 K/mm3 0.0-0.1 N STREPTOCOCCUS PCR [id number] 04:14:00* Test Item Value Reference Range Interpretation Comments STREPTOCOCCUS DYSGALACTIAE (test code = STREPGC) NEGATIVE FOR G/C N EGATIVE STREPA MOLECULAR (test code = STREPAMOL) NEGATIVE FOR GRP A NEGATIV E - CTA [id number] 22:11:00 Name: LEANDRO THOMPSON [facility] : 1965 Age/S: 54 / M [address] Unit #: [id number] Loc: [facility] [place] [address] Phys: Janak Cardona MD Acct: [id number] Dis Date: Status: ADM IN PHONE #: [phone] Exam Date: 10/09/20192199 FAX #: [phone] Reason: consulidation EXAMS: CPT CODE: [id number] CTA CHEST 02325 HISTORY: Consolidation. COMPARISON: Chest x-ray from same day. Location: . CTA CHEST: 3-D images available. 100 mL of Isovue-370. Automated exposure control No pulmonary embolism. Suboptimal opacification of the aorta limited evaluation for dissection. No gross dissection. No aneurysm. Unremarkable SVC. Suboptimal opacification of the neck vasculature limited in evaluation. Unremarkable thyroid glands. Esophagus is mildly dilated. The wall is not thickened. No pathologic adenopathy. Moderate cardiomegaly with left ventricular hypertrophy. No pericardial effusion. Visualized upper abdomen is within normal limits with hyperplastic adrenal on the left. The subcutaneous tissues and the musculature are normal in appearance. No blastic lesions noted within the bony skeleton. Bone cyst within the posterior lateral 10th right rib. DJD. Patchy nodular bilateral infiltrates with basal p redominance. Small basilar effusions. Dependent changes. No bronchiecta sis, honeycombing or fibrosis or endobronchial lesions. IM PRESSION: No pulmonary embolism. Suboptimally opacification o f the aorta limits evaluation for dissection however no gross dissection . No aneurysm. Nodular patchy bilateral infiltrates with basa l predominance. Small bibasal effusions. Electronically Sig zabrina by Virgilio Trevino on 10/09/2019 at 2211 Reported and signed by: Monroe Trevino M.D. PAGE 1 Signed Report (CONTINUED) Name: LEANDRO THOMPSON [facility] : 1965 Age/S: 54 / M [address] Unit #: [id number] Loc: [facility] [place] [address] Phys: Janak Cardona MD Acct: [id number] Dis Date: Status: ADM IN PHONE #: [phone] Exam Date: 10/09/20192199 FAX #: [phone] Reason: consulidation EXAMS: CPT CODE: [id number] CTA CHEST 42065 <Continued> CC: Rika Gonzalez MD; Janak Cardona MD Technologist:Krysta Muniz RT(R); CARMEN Gallagher CTDI: DLP: Trnscb Date/Time: 10/09/2019 (2210) [email or web address] Orig Print D/T: S: 10/09/2019 (0914) PAGE 2 Signed Report PROCALCITONIN (PCT)2019-10-09 21:54:00* Test Item Value Reference Range Interpretation Comments PROCALCITONIN (PCT) (test code = PROCAL) 0.20 ng/ml Concentration Interpretation (ng/mL) <0.51 Sepsis is not likely. Local bacterial infection is possible. (LOW RISK for progression to Sepsis) 0.51 - 2.00 Sepsis is possible, but other conditions are known to elevate PCT as well. (MODERATE RISK for progression to Sepsis) > 2.00 Sepsis is likely, unless other causes are known. (HIGH RISK for progression to Severe Sepsis or Septic Shock) 10.00 High likelihood of Severe Sepsis or Septic or higher Shock. *Increased PCT levels may not always be related to systemic bacterial infection.*Low PCT levels do not automatically exclude the presence of bacterial infection.*All results should be interpreted taking into account the patients history. [id number] 20:27:00* Test Item Value Reference Range Interpretation Comments GLUBED (test code = GLUBED) 103 mg/dL 74-106 N Performed by certified kick press operator at [facility] [id number] 19:13:00* Test Item Value Reference Range Interpretation Comments TROPONIN-I (test code = TROPI) 1.530 ng/mL 0-0.045 HH Results called to [id number] by [email or web address] 10/09/19 1912Critical results verified and read back by Nurse? Y COMMENTS TO MOTOR ANALYST: COLLECT 3 HOURS AFTER PREVIOUS [id number] 15:07:00* Test Item Value Reference Range Interpretation Comments TROPONIN-I (test code = TROPI) 0.69 ng/mL 0.00-0.056 HH Results called to DR. SOLORIO by LIANNACCB 10/09/19 1506Critical results verified and read back by Nurse? YRESULT VERIFIED BY REPEAT ANALYSIS COMMENTS TO MOTOR ANALYST: COLLECT 3 HOURS AFTER PREVIOUS SAMPLEB-TYPE NATRIURETIC [id number] 11:21:00* Test Item Value Reference Range Interpretation Comments B-TYPE NATRIURETIC PEPTIDE (test code = BNP) > 5000 pg/mL 0-100 H RESULT VERIFIED BY REPEAT ANALYSIS COMPREHENSIVE METABOLIC [id number] 11:09:00* Test Item Value Reference Range Interpretation Comments SODIUM (test code = NA) 138 mmol/L 128-145 N POTASSIUM (test code = K) 3.5 mmol/L 3.5-5.1 N CHLORIDE (test code = CL) 95.0 mmol/L 98-107 L CARBON DIOXIDE (test code = CO2) 31.0 mmol/L 22-29 H ANION GAP (test code = GAP) 16 mmol/L 10-20 N GLUCOSE (test code = GLU) 75 mg/dL 70-110 N BLOOD UREA NITROGEN (test code = BUN) 13 mg/dL 7-22 N CREATININE (test code = CREAT) 4.20 mg/dL 0.55-1.3 H BUN/CREATININE RATIO (test code = BUN/CREA) 3.1 10-20 L TOTAL PROTEIN (test code = PROT) 8.4 gram/dL 6.1-7.8 H ALBUMIN (test code = ALB) 3.7 g/dL 3.3-4.4 N GLOBULIN (test code = GLOB) 4.7 G/DL 1-10 N ALBUMIN/GLOBULIN RATIO (test code = A/G) 0.8 0.75-1.50 N CALCIUM (test code = CA) 9.1 mg/dL 8.0-10.5 N BILIRUBIN TOTAL (test code = BILT) 0.50 mg/dL 0.2-1.2 N SGOT/AST (test code = AST) 21 U/L 10-39 N SGPT/ALT (test code = ALT) 22 U/L 10-69 N ALKALINE PHOSPHATASE TOTAL (test code = ALKP) 66 U/L 50-139 N CPK-MB [id number] 11:09:00* Test Item Value Reference Range Interpretation Comments CREATINE KINASE (CK) (test code = CK) 62 U/L 39-308 N CKMB (test code = CKMBT) 1.2 ng/mL 0.0-5.0 N RELATIVE % INDEX (test code = REL%) 1.94 % 0.00-2.50 N "If the total CK is elevated, the CKMB Fraction must beinterpreted as a Relative % Index, Normal is less than 2.5%"NOTE: Relative % Index is not valid with a normal total CK. [id number] 11:09:00* Test Item Value Reference Range Interpretation Comments TROPONIN-I (test code = TROPI) 0.15 ng/mL 0.00-0.056 HH Results called to [id number] by LIANNACCB 10/09/19 1109Critical results verified and read back by Nurse? YRESULT VERIFIED BY REPEAT ANALYSIS B-TYPE NATRIURETIC [id number] 11:00:00* Test Item Value Reference Range Interpretation Comments B-TYPE NATRIURETIC PEPTIDE (test code = BNP) > 5000 pg/mL 0-100 H COMPREHENSIVE METABOLIC [id number] 10:53:00* Test Item Value Reference Range Interpretation Comments SODIUM (test code = NA) 138 mmol/L 128-145 N POTASSIUM (test code = K) 3.5 mmol/L 3.5-5.1 N CHLORIDE (test code = CL) 95.0 mmol/L 98-107 L CARBON DIOXIDE (test code = CO2) 31.0 mmol/L 22-29 H ANION GAP (test code = GAP) 16 mmol/L 10-20 N GLUCOSE (test code = GLU) 75 mg/dL 70-110 N BLOOD UREA NITROGEN (test code = BUN) 13 mg/dL 7-22 N CREATININE (test code = CREAT) 4.20 mg/dL 0.55-1.3 H BUN/CREATININE RATIO (test code = BUN/CREA) 3.1 10-20 L TOTAL PROTEIN (test code = PROT) gram/dL 6.4-8.2 ALBUMIN (test code = ALB) g/dL 3.4-5.0 GLOBULIN (test code = GLOB) G/DL 1-10 ALBUMIN/GLOBULIN RATIO (test code = A/G) 0.75-1.50 CALCIUM (test code = CA) 9.1 mg/dL 8.0-10.5 N BILIRUBIN TOTAL (test code = BILT) mg/dL 0.0-1.0 SGOT/AST (test code = AST) IUnit/L 15-37 SGPT/ALT (test code = ALT) IUnit/L 12-78 ALKALINE PHOSPHATASE TOTAL (test code = ALKP) IUnit/L 45-117 CPK-MB ESFWXPM5144-79-33 10:53:00* Test Item Value Reference Range Interpretation Comments CREATINE KINASE (CK) (test code = CK) U/L 39-308 CKMB (test code = CKMBT) ng/mL 0.0-5.0 RELATIVE % INDEX (test code = REL%) % 0.00-2.50 [id number]-[id number] 10:53:00* Test Item Value Reference Range Interpretation Comments TROPONIN-I (test code = TROPI) ng/mL 0-0.045 CBC W/AUTO HBAU9904-27-20 10:47:00* Test Item Value Reference Range Interpretation Comments WHITE BLOOD CELL (test code = WBC) 5.1 K/mm3 4.5-12.5 N RED BLOOD CELL (test code = RBC) 2.84 mill/mm3 4.0-5.8 L HEMOGLOBIN (test code = HGB) 9.0 gram/dL 13.0-17.5 L RESULT VERIFIED BY REPEAT ANALYSIS HEMATOCRIT (test code = HCT) 28.4 % 42.0-52.0 L MEAN CELL VOLUME (test code = MCV) 100.0 fL 80-98 H MEAN CELL HGB (test code = MCH) 31.7 picogram 27.0-33.0 N MEAN CELL HGB CONCETRATION (test code = MCHC) 31.7 gram/dL 33.0-36. 0 L RED CELL DISTRIBUTION WIDTH (test code = RDW) 12.7 % 11.6-16. 2 N RED CELL DISTRIBUTION WIDTH SD (test code = RDW-SD) 47.1 fL 37 .0-51.0 N PLATELET COUNT (test code = PLT) 197 K/mm3 150-450 N MEAN PLATELET VOLUME (test code = MPV) 9.9 fL 6.7-11.0 N NEUTROPHIL % (test code = NT%) 74.6 % 39.0-69.0 H LYMPHOCYTE % (test code = LY%) 12.2 % 25.0-55.0 L MONOCYTE % (test code = MO%) 9.2 % 0.0-10.0 N EOSINOPHIL % (test code = EO%) 2.4 % 0.0-5.0 N BASOPHIL % (test code = BA%) 1.2 % 0.0-1.0 H NEUTROPHIL # (test code = NT#) 3.80 K/mm3 1.8-7.7 N LYMPHOCYTE # (test code = LY#) 0.62 K/mm3 1.0-5.0 L MONOCYTE # (test code = MO#) 0.47 K/mm3 0-0.8 N EOSINOPHIL # (test code = EO#) 0.12 K/mm3 0.0-0.5 N BASOPHIL # (test code = BA#) 0.06 K/mm3 0.0-0.2 N MANUAL DIFF REQUIRED (test code = MDIFF) NO CBC W/AUTO [id number] 10:44:00* Test Item Value Reference Range Interpretation Comments WHITE BLOOD CELL (test code = WBC) 5.1 K/mm3 4.5-12.5 N RED BLOOD CELL (test code = RBC) 2.84 mill/mm3 4.0-5.8 L HEMOGLOBIN (test code = HGB) 9.0 gram/dL 13.0-17.5 L HEMATOCRIT (test code = HCT) 28.4 % 42.0-52.0 L MEAN CELL VOLUME (test code = MCV) 100.0 fL 80-98 H MEAN CELL HGB (test code = MCH) 31.7 picogram 27.0-33.0 N MEAN CELL HGB CONCETRATION (test code = MCHC) 31.7 gram/dL 33.0-36. 0 L RED CELL DISTRIBUTION WIDTH (test code = RDW) 12.7 % 11.6-16. 2 N RED CELL DISTRIBUTION WIDTH SD (test code = RDW-SD) 47.1 fL 37 .0-51.0 N PLATELET COUNT (test code = PLT) 197 K/mm3 150-450 N MEAN PLATELET VOLUME (test code = MPV) 9.9 fL 6.7-11.0 N NEUTROPHIL % (test code = NT%) 74.6 % 39.0-69.0 H LYMPHOCYTE % (test code = LY%) 12.2 % 25.0-55.0 L MONOCYTE % (test code = MO%) 9.2 % 0.0-10.0 N EOSINOPHIL % (test code = EO%) 2.4 % 0.0-5.0 N BASOPHIL % (test code = BA%) 1.2 % 0.0-1.0 H NEUTROPHIL # (test code = NT#) 3.80 K/mm3 1.8-7.7 N LYMPHOCYTE # (test code = LY#) 0.62 K/mm3 1.0-5.0 L MONOCYTE # (test code = MO#) 0.47 K/mm3 0-0.8 N EOSINOPHIL # (test code = EO#) 0.12 K/mm3 0.0-0.5 N BASOPHIL # (test code = BA#) 0.06 K/mm3 0.0-0.2 N MANUAL DIFF REQUIRED (test code = MDIFF) NO - XR CHEST 2 [id number] 09:53:00 FAX: Hien Guevara [phone] [place]: [place] St: REG Name: LEANDRO HARDY [facility] : [birth year] 63 Age/S: 54/M [address] [facility] Unit #: [id number] Loc: [facility] [address] Phys: Hien Guevaar MD [place], [place] [address] Acct: [id number] Dis Date: Status: REG ER PHONE #: Exam Date: 10/09/2019 0949 FAX #: Reason: cough/congestion EXAMS: CPT CODE: [id number] XR CHEST 2 V 25827 HISTORY: cough/congestion TECHNIQUE: PA and lateral chest x-ray COMPARISON: 08/17/19 FINDINGS: Patchy bilateral airspace opacification, greater on the right. No pleural effusion. Cardiomegaly with pulmonary congestion. Sternotomy/CABG. Atherosclerotic vascular calcification of the thoracic aorta. Thoracic spondylosis. IMPRESSION: Patchy bilateral airspace opacification; correlate with clinical ev idence of pneumonia. LOCATION: LP at 0953 Reported and signed by: Jeimy Burleson D.O. CC: Hien Guevara MD Technologist: MARIA ISABEL HUFFMAN ONS RT(R)(CT) Trnscrd Date/Time/By: 10/09/2019 ( 0953) : By: [email or web address] Orig Print D/T: S: 10/09/2019 (0956) PAGE 1 Signed Report Blood Wgxvjye9553-92-92 18:51:00* Test Item Value Reference Range Interpretation Comments Blood Culture (test code = 11945629) NO GROWTH AFTER 72 HOURS [facility] TomballBedside Ovktjse6991-01-64 15:53:00* Test Item Value Reference Range Interpretation Comments Bedside Glucose (test code = 21707-2) 88 70-120 Meter ID: [id number] [facility] 2019-09-05 10:23:00* Test Item Value Reference Range Interpretation Comments Blood Culture (test code = 600-7) No Result Data Provided [facility] TomballPlatelet Zwsyejei2086-88-48 06:21:00* Test Item Value Reference Range Interpretation Comments Platelet Estimate (test code = 60898-8) ADEQUATE [facility] TomballPlatelet Morphology Lgchayj9544-95-88 06:21:00* Test Item Value Reference Range Interpretation Comments Platelet Morphology Comment (test code = 95276-1) FEW LARGE [facility] TomballRed Cell Morphology Jnbfxsy9044-90-98 06:21:00* Test Item Value Reference Range Interpretation Comments Red Cell Morphology Comment (test code = 6742-1) NORMAL [facility] Clear Lakeodium Tjtti0013-16-21 05:23:00* Test Item Value Reference Range Interpretation Comments Sodium Level (test code = 2951-2) 129 136-145 L [facility] TomballPotassium Ugvbf7337-65-59 05:23:00* Test Item Value Reference Range Interpretation Comments Potassium Level (test code = 2823-3) 4.6 3.5-5.1 [facility] TomballChloride Qmxah1723-62-77 05:23:00* Test Item Value Reference Range Interpretation Comments Chloride Level (test code = 2075-0) 89 98-107 L [facility] TomballCarbon Dioxide Otfka6002-65-71 05:23:00* Test Item Value Reference Range Interpretation Comments Carbon Dioxide Level (test code = 2028-9) 20 22-29 L [facility] TomballAnion Njf2896-87-07 05:23:00* Test Item Value Reference Range Interpretation Comments Anion Gap (test code = 59026-8) 24.6 8-16 H [facility] TomballBlood Urea Laqgogoo5919-62-73 05:23:00* Test Item Value Reference Range Interpretation Comments Blood Urea Nitrogen (test code = 3094-0) 75 7-26 H [facility] TomballCreatinine2019-11-20 05:23:00* Test Item Value Reference Range Interpretation Comments Creatinine (test code = 2160-0) 7.68 0.72-1.25 H [facility] TomballBUN/Creatinine Rwkun2619-16-38 05:23:00* Test Item Value Reference Range Interpretation Comments BUN/Creatinine Ratio (test code = 3097-3) 10 6-25 [facility] TomballEstimat Glomerular Filtration Rate 2019-09-05 05:23:00* Test Item Value Reference Range Interpretation Comments Estimat Glomerular Filtration Rate (test code = 976640959) 7 >60 L Ranges were taken from the National Kidney Disease Education Program and the [facility] literature.Reference ranges:60 or greater: Kfydci14-38 ( for 3 consecutive months): Chronic kidney disease 15 or less: Kidney failureHCA Houston Healthcare TomballGlucose Ktwqr0547-48-06 05:23:00* Test Item Value Reference Range Interpretation Comments Glucose Level (test code = JKF1803) 192 74-118 H [facility] TomballCalcium Opbuv1837-09-45 05:23:00* Test Item Value Reference Range Interpretation Comments Calcium Level (test code = 71938-2) 9.0 8.4-10.2 [facility] TomballPhosphorus Vjheg0830-60-60 05:23:00* Test Item Value Reference Range Interpretation Comments Phosphorus Level (test code = MNB2819) 7.0 2.3-4.7 H [facility] TomballMagnesium Wduhy4093-06-88 05:23:00* Test Item Value Reference Range Interpretation Comments Magnesium Level (test code = 43988-2) 2.5 1.3-2.1 H [facility] TomballTotal Qfbdnjatm8617-32-79 05:23:00* Test Item Value Reference Range Interpretation Comments Total Bilirubin (test code = 1975-2) 0.4 0.2-1.2 [facility] TomballAspartate Amino Transf (AST/SGOT) 2019-09-05 05:23:00* Test Item Value Reference Range Interpretation Comments Aspartate Amino Transf (AST/SGOT) (test code = Aspartate Amino Transf (AST/SGOT)) 10 5-34 [facility] TomballAlanine Aminotransferase (ALT/SGPT) 2019-09-05 05:23:00* Test Item Value Reference Range Interpretation Comments Alanine Aminotransferase (ALT/SGPT) (test code = 1742-6) < 6 0-55 [facility] Obsslie6263-65-98 05:23:00* Test Item Value Reference Range Interpretation Comments Total Protein (test code = 2885-2) 6.5 6.5-8.1 [facility] TomballAlbumin2019-11-20 05:23:00* Test Item Value Reference Range Interpretation Comments Albumin (test code = 1751-7) 2.0 3.5-5.0 L [facility] TomballGlobulin2019-11-20 05:23:00* Test Item Value Reference Range Interpretation Comments Globulin (test code = 37912-7) 4.5 2.3-3.5 H [facility] TomballAlbumin/Globulin Zhnpi3630-11-61 05:23:00 * Test Item Value Reference Range Interpretation Comments Albumin/Globulin Ratio (test code = 1759-0) 0.4 0.8-2.0 L [facility] TomballAlkaline Eemqpcvjllm2998-65-91 05:23:00* Test Item Value Reference Range Interpretation Comments Alkaline Phosphatase (test code = 6768-6) 49 40-150 [facility] TomballWhite Blood Dyxep3204-47-11 05:05:00* Test Item Value Reference Range Interpretation Comments White Blood Count (test code = 6690-2) 9.90 4.8-10.8 [facility] TomballRed Blood Lycpb9102-00-94 05:05:00* Test Item Value Reference Range Interpretation Comments Red Blood Count (test code = 789-8) 2.77 4.3-5.7 L [facility] TomballHemoglobin2019-11-20 05:05:00* Test Item Value Reference Range Interpretation Comments Hemoglobin (test code = 09663-1) 9.1 14.0-18.0 L [facility] TomballHematocrit2019-11-20 05:05:00* Test Item Value Reference Range Interpretation Comments Hematocrit (test code = 4544-3) 28.5 38.2-49.6 L [facility] TomballMean Corpuscular Ugxgwe2185-53-47 05:05:00* Test Item Value Reference Range Interpretation Comments Mean Corpuscular Volume (test code = 787-2) 102.9 81-99 H [facility] TomballMean Corpuscular Vqcvmefuji0726-20-61 05:05:00* Test Item Value Reference Range Interpretation Comments Mean Corpuscular Hemoglobin (test code = 785-6) 32.9 28-32 H [facility] TomballMean Corpuscular Hemoglobin Concent 2019-09-05 05:05:00* Test Item Value Reference Range Interpretation Comments Mean Corpuscular Hemoglobin Concent (test code = 786-4) 31.9 31-35 [facility] TomballRed Cell Distribution Tccth6156-07-95 05:05:00* Test Item Value Reference Range Interpretation Comments Red Cell Distribution Width (test code = 59573-5) 13.0 11.7 -14.4 [facility] TomballPlatelet Cdzxy5777-16-33 05:05:00* Test Item Value Reference Range Interpretation Comments Platelet Count (test code = 777-3) 209 140-360 [facility] TomballNeutrophils (%) (Auto)2019-09-05 05:05:00 * Test Item Value Reference Range Interpretation Comments Neutrophils (%) (Auto) (test code = 20747-6) 86.5 38.7-80.0 H [facility] TomballLymphocytes (%) (Auto)2019-09-05 05:05:00 * Test Item Value Reference Range Interpretation Comments Lymphocytes (%) (Auto) (test code = 736-9) 6.3 18.0-39.1 L [facility] TomballMonocytes (%) (Auto)2019-09-05 05:05:00* Test Item Value Reference Range Interpretation Comments Monocytes (%) (Auto) (test code = 5905-5) 4.4 4.4-11.3 [facility] TomballEosinophils (%) (Auto)2019-09-05 05:05:00 * Test Item Value Reference Range Interpretation Comments Eosinophils (%) (Auto) (test code = 713-8) 0.7 0.0-6.0 [facility] TomballBasophils (%) (Auto)2019-09-05 05:05:00* Test Item Value Reference Range Interpretation Comments Basophils (%) (Auto) (test code = 706-2) 0.2 0.0-1.0 [facility] TomballIM GRANULOCYTES %2019-09-05 05:05:00* Test Item Value Reference Range Interpretation Comments IM GRANULOCYTES % (test code = IM GRANULOCYTES %) 1.9 0.0- 1.0 H [facility] TomballNeutrophils # (Auto)2019-09-05 05:05:00* Test Item Value Reference Range Interpretation Comments Neutrophils # (Auto) (test code = 751-8) 8.6 2.1-6.9 H [facility] TomballLymphocytes # (Auto)2019-09-05 05:05:00* Test Item Value Reference Range Interpretation Comments Lymphocytes # (Auto) (test code = 96169-2) 0.6 1.0-3.2 L [facility] TomballMonocytes # (Auto)2019-09-05 05:05:00* Test Item Value Reference Range Interpretation Comments Monocytes # (Auto) (test code = 742-7) 0.4 0.2-0.8 [facility] TomballEosinophils # (Auto)2019-09-05 05:05:00* Test Item Value Reference Range Interpretation Comments Eosinophils # (Auto) (test code = 711-2) 0.1 0.0-0.4 [facility] TomballBasophils # (Auto)2019-09-05 05:05:00* Test Item Value Reference Range Interpretation Comments Basophils # (Auto) (test code = 704-7) 0.0 0.0-0.1 [facility] TomballAbsolute Immature Granulocyte (auto 2019-09-05 05:05:00* Test Item Value Reference Range Interpretation Comments Absolute Immature Granulocyte (auto (tamara t code = Absolute Immature Granulocyte (auto) 0.19 0-0.1 H [facility]ballHe[facility] B Surface Antibody, Quant 2019-09-04 20:47:00* Test Item Value Reference Range Interpretation Comments Hepatitis B Surface Antibody, Quant (test code = 5194-6) 5.7 Immunity>9.9 L Status of Immunity Anti-HBs Level Inconsistent with Immunity 0.0 - 9.9Consistent with Immunity >9.9[facility] B Core Total Wjkqcvry3557-08-32 20:47:00* Test Item Value Reference Range Interpretation Comments Hepatitis B Core Total Antibody (test code = 69571-2) Negative Negative Performed at: [address] [id number] Director: Diogenes Garcia MD, Phone: [phone] [facility] TomballHe[facility] B Surface Ftgtmyr0255-70-13 20:46:00* Test Item Value Reference Range Interpretation Comments Hepatitis B Surface Antigen (test code = 5196-1) Negative Negat ronan [facility] TomballHomocysteine2019-11-19 20:45:00* Test Item Value Reference Range Interpretation Comments Homocysteine (test code = 48871-0) 37.4 0.0-15.0 H Performed at: - [facility] [address] [id number] Director: Diogenes Garcia MD, Phone: [phone] [facility] Healthcare TomballCreatine Kinase DO5713-96-19 15:15:00* Test Item Value Reference Range Interpretation Comments Creatine Kinase MB (test code = 32841-3) 1.00 0-5.0 [facility] TomballTroponin N0628-19-74 15:15:00* Test Item Value Reference Range Interpretation Comments Troponin I (test code = NWV0111) 0.214 0-0.300 [facility] TomballCreatine Vpmmow3734-01-07 15:10:00* Test Item Value Reference Range Interpretation Comments Creatine Kinase (test code = 2157-6) 15 30-200 L [facility] TomballCT CHEST JK6339-56-44 05:33:00 [facility] [address] [place] [address] Patient Name: LEANDRO THOMPSON MR #: [id number] : 1965 Age/Sex: 54/M Req #: [id number] Adm Physician: IMANI GAY MD Ordered by: SUE MARTINEZ MD Report #: [id number] Location: ICU Room/Bed: ICU [facility] Procedure: [id number] CT/CT C HEST WO Exam Date: 09/03/19 Exam Time: 05 REPORT STATUS: Signed CT chest without e nhancement CPT code: 42378 INDICATION: Committee acquired pneumonia TECHNIQUE: Thin collimation axial images obtained from the thoracic inlet to the level of the diaphragm without intravenous contrast. Dose reduction techniques used: Automated exposure control, adjustment of the mAs and/or kVp according to patient size, standardized low-dose protocol, and/or iterative r econstruction technique. RADIATION DOSE: Total DLP: 439.98 mGy*cm Estimated effective dose: (DLP x 0.015 x size factor) mSv CTDIvol has been reviewed. It is below the limits set by the Radiation Protocol Committee (RPC). COMPARISON: Chest x-ray 09/02/2019. CHEST FINDINGS: Lymph nodes: No enlarged axillary lymph nodes. A left supraclavicular lymph node measures 6 mm. Multiple mediastinal lymph nodes are prominent. A precarinal ly mph node measures 1.3 x 2.2 cm. Subcarinal lymph node measures 1.5 x 1.8 cm. L ack of intravenous contrast evaluation of the mellissa for lymphadenopathy. T hyroid: Normal in size without mass in the visualized parenchyma. Mediastin um: The heart is mildly enlarged. Heavy calcifications of the aorta and sanz ry arteries. The main pulmonary artery measures 3.2 cm. No pericardial effusio n. The esophagus is normal. Lungs: Right: Multifocal infiltrates in t he upper, middle, and lower lobes, posterior aspects. Left: Large infiltr ate in the superior segment and posterior segment of the lower lobe. Small eddie unt of atelectasis/infiltrate in the base of the lower lobe. Airways: No endobronchial lesions. Pleura: No pleural effusion. ABDOMEN FINDINGS: Thickening of the adrenal glands. No mass or lymphadenopathy in the visualized portion of the upper abdomen. Bones: Median sternotomy is well opposed. Sternotomy margins are still visible. No focal osseous lesions. IMPRESSIO N: 1. Multifocal pulmonary infiltrates. Mediastinal lymphadenopathy is lik nica reactive. 2. Cardiomegaly. Enlarged main pulmonary artery suggestive o f pulmonary artery hypertension. 3. Bilateral adrenal hyperplasia. Sign ed by: Dr. Hugh Henderson MD on 09/03/2019 5:41 AM Dictated By: KERWIN HENDERSON MD 0511 Transcribed By: ABDOULAYE on 09/03/1941 COPY TO: SUE MARTINEZ MD Prothrombin Xsxg8536-23-86 05:25:00* Test Item Value Reference Range Interpretation Comments Prothrombin Time (test code = 5902-2) 15.8 11.9-14.5 H [facility] TomballProthromb Time International Ratio 2019-09-03 05:25:00* Test Item Value Reference Range Interpretation Comments Prothromb Time International Ratio (test code = 6301-6) 1.20 Oral Anticoagulant Therapy INR Values:1. Low Intensity Therapy 1.5 - 2.02 . Moderate Intensity Therapy 2.0 - 3.03. High Intensity Therapy(1) 2.5 - 3. 54. High Intensity Therapy(2) 3.0 - 4.05. Panic Value INR > 5.0 [facility] TomballVitamin B12 Rlecy4780-41-38 19:57:00* Test Item Value Reference Range Interpretation Comments Vitamin B12 Level (test code = 09181-9) 1766 213-816 H [facility] TomballFree Thyroxine Fmche1623-54-00 19:57:00* Test Item Value Reference Range Interpretation Comments Free Thyroxine Index (test code = 37612-0) 1.5709 1.4-3.8 [facility] TomballThyroxine (T4)2019-09-02 19:57:00* Test Item Value Reference Range Interpretation Comments Thyroxine (T4) (test code = 3026-2) 4.09 4.5-10.9 L [facility] TomballTriiodothyronine (T3) Goqwfu6270-91-20 19:57:00* Test Item Value Reference Range Interpretation Comments Triiodothyronine (T3) Uptake (test code = 3050-2) 38.41 22.5 -37.0 H [facility] TomballThyroid Stimulating Hormone (TSH) 2019-09-02 19:57:00* Test Item Value Reference Range Interpretation Comments Thyroid Stimulating Hormone (TSH) (test code = 26232-0) 0.501 0.350-4.940 [facility] TomballLactic Acid Iblpz3842-40-13 19:06:00* Test Item Value Reference Range Interpretation Comments Lactic Acid Level (test code = Lactic Acid Level) 1.5 0.5- 2.0 [facility] TomballArterial Blood fS6020-43-58 15:30:00* Test Item Value Reference Range Interpretation Comments Arterial Blood pH (test code = 2744-1) 7.42 7.31-7.41 H [facility] TomballArterial Blood Partial Pressure CO2 2019-09-02 15:30:00* Test Item Value Reference Range Interpretation Comments Arterial Blood Partial Pressure CO2 (test code = 2019-05) 31 41-51 L [facility] TomballArterial Blood Partial Pressure O2 2019-09-02 15:30:00* Test Item Value Reference Range Interpretation Comments Arterial Blood Partial Pressure O2 (test code = 2019-05) 84 80-105 [facility] TomballArterial Blood UON12404-78-60 15:30:00* Test Item Value Reference Range Interpretation Comments Arterial Blood HCO3 (test code = 1960-4) 20 23-28 L [facility] TomballArterial Blood Base Aqddgz2071-44-90 15:30:00* Test Item Value Reference Range Interpretation Comments Arterial Blood Base Excess (test code = 1925-7) -4.0 -2-3 L [facility] TomballArterial Blood Oxygen Saturation 2019-09-02 15:30:00* Test Item Value Reference Range Interpretation Comments Arterial Blood Oxygen Saturation (test code = 2708-6) 97.0 95-98 [facility] TomballFiO22019-11-17 15:30:00* Test Item Value Reference Range Interpretation Comments FiO2 (test code = FiO2) 28 2L/M NC RIGHT RADIALCHI [facility] HospitalCHEST 2 VIEWS 2019-09-02 12:38:00 [place] [address] Patient Name: LEANDRO THOMPSON MR #: [id number] : 1965 Age/Sex: 54/M Req #: [id number] Adm Physician: Ordered by: DOUGIE JIMENEZ MD Report #: [id number] Location: ER Room/Bed: Procedure: [id number] DX/CHES T 2 VIEWS Exam Date: 09/02/19 Exam Time: 1210 REPORT STATUS: Signed EXAMINATION: PA and lateral views of the chest. COMPARISON: 07/16/2018 CLINICAL HIST ORY: Cough and chest pain x2 weeks DISCUSSION: The lungs are wel l-inflated. There are patchy consolidations involving the right mid and lower lung as well as the left lower lung. Superimposed nodular opacities in the rustam gula are suspected. Stable cardiomediastinal contour status post median latanya rnotomy. No acute osseous abnormality. No sizable pleural effusion. IM PRESSION: Findings suggestive of multifocal pneumonia in the clinical setting of cough and chest pain. Follow-up chest radiograph in 6-8 weeks is suggested to document stability or resolution. Persistence of findings should prompt CT scan of the chest at that time given suspected superimposed nodular opacities in the left lung. Signed by: Dr. Sue Chaudhari M.D. on 09/02/2019 12:42 PM Dictated By: SUE CHAUDHARI MD Electronically Sign ed By: SUE CHAUDHARI MD on 09/02/19 1242 Transcribed By: ABDOULAYE on 09/02/19 12 42 COPY TO: DOUGIE JIMENEZ MD B-Type Natriuretic Peptide 2019-09-02 12:35:00* Test Item Value Reference Range Interpretation Comments B-Type Natriuretic Peptide (test code = 33472-5) 2436.3 0-100 H [facility] TomballInfluenza Virus Types A,B Antigen 2019-09-02 12:21:00* Test Item Value Reference Range Interpretation Comments Influenza Virus Types A,B Antigen (test code = 33123-7) NEGATIVE NEGATIVE [facility] TomballActivated Partial Thromboplast Time 2019-09-02 12:20:00* Test Item Value Reference Range Interpretation Comments Activated Partial Thromboplast Time (test code = 40234-0) 28.6 23.8-35.[address] [facility] HospitalAB HEPATITIS B OCOEJIW5691-02-15 06:09:00 * Test Item Value Reference Range Interpretation Comments AB HEPATITIS B SURFACE (test code = HBSAB) Non Reactive () Non Reactive: Inconsistent with immunity, less than 10 mIU/mL Reactive: Consistent with immunity, greater than 9.9 mIU/mLPerformed At: [facility] [id number] [place], [place] [id number] Diogenes Naik MD Ph:[phone] QROBAD4729-02-03 18:01:00* Test Item Value Reference Range Interpretation Comments GLUBED (test code = GLUBED) 78 mg/dL 74-106 N [facility]formed by [facility] LLKVKG7661-39-41 16:55:00* Test Item Value Reference Range Interpretation Comments GLUBED (test code = GLUBED) 294 mg/dL 74-106 H Performed by certified kick press operator at [facility] COMPREHENSIVE METABOLIC RTYDH9508-07-60 06:11:00* Test Item Value Reference Range Interpretation Comments SODIUM (test code = NA) 134 mmol/L 136-145 L POTASSIUM (test code = K) 4.9 mmol/L 3.5-5.1 N CHLORIDE (test code = CL) 97.0 mmol/L 98-107 L CARBON DIOXIDE (test code = CO2) 23.0 mmol/L 21-32 N ANION GAP (test code = GAP) 18.9 10-20 N GLUCOSE (test code = GLU) 168 mg/dL 74-106 H BLOOD UREA NITROGEN (test code = BUN) 44 mg/dL 7-18 H GLOMERULAR FILTRATION RATE (test code = GFR) 7 mL/min >=60 Estimated GFR by using Modified MDRD formula.Chronic kidney disease is defined as either kidney damageor GFR <60 mL/min/1.73 m2 for >3 months. CREATININE (test code = CREAT) 8.00 mg/dL 0.7-1.3 H BUN/CREATININE RATIO (test code = BUN/CREA) 5.5 10-20 L TOTAL PROTEIN (test code = PROT) 7.5 gram/dL 6.4-8.2 N ALBUMIN (test code = ALB) 3.6 g/dL 3.4-5.0 N GLOBULIN (test code = GLOB) 3.9 gram/dL 2.7-4.2 N ALBUMIN/GLOBULIN RATIO (test code = A/G) 0.9 0.75-1.50 N CALCIUM (test code = CA) 9.1 mg/dL 8.5-10.1 N BILIRUBIN TOTAL (test code = BILT) 0.50 mg/dL 0.0-1.0 N SGOT/AST (test code = AST) 17 IUnit/L 15-37 N SGPT/ALT (test code = ALT) 14 IUnit/L 12-78 N ALKALINE PHOSPHATASE TOTAL (test code = ALKP) 53 IUnit/L 45-117 N Note change in reference range due to change in reagent. COMPREHENSIVE METABOLIC [id number] 06:00:00* Test Item Value Reference Range Interpretation Comments SODIUM (test code = NA) 134 mmol/L 136-145 L POTASSIUM (test code = K) 4.9 mmol/L 3.5-5.1 N CHLORIDE (test code = CL) 97.0 mmol/L 98-107 L CARBON DIOXIDE (test code = CO2) mmol/L 21-32 ANION GAP (test code = GAP) 10-20 GLUCOSE (test code = GLU) mg/dL 74-106 BLOOD UREA NITROGEN (test code = BUN) mg/dL 7-18 GLOMERULAR FILTRATION RATE (test code = GFR) mL/min >=60 CREATININE (test code = CREAT) mg/dL 0.7-1.3 BUN/CREATININE RATIO (test code = BUN/CREA) 10-20 TOTAL PROTEIN (test code = PROT) gram/dL 6.4-8.2 ALBUMIN (test code = ALB) g/dL 3.4-5.0 GLOBULIN (test code = GLOB) gram/dL 2.7-4.2 ALBUMIN/GLOBULIN RATIO (test code = A/G) 0.75-1.50 CALCIUM (test code = CA) mg/dL 8.5-10.1 BILIRUBIN TOTAL (test code = BILT) mg/dL 0.0-1.0 SGOT/AST (test code = AST) IUnit/L 15-37 SGPT/ALT (test code = ALT) IUnit/L 12-78 ALKALINE PHOSPHATASE TOTAL (test code = ALKP) IUnit/L 45-117 CBC W/AUTO [id number] 05:34:00* Test Item Value Reference Range Interpretation Comments WHITE BLOOD CELL (test code = WBC) 5.7 K/mm3 4.5-12.5 N RED BLOOD CELL (test code = RBC) 3.71 mill/mm3 4.0-5.8 L HEMOGLOBIN (test code = HGB) 12.6 gram/dL 13.0-17.5 L HEMATOCRIT (test code = HCT) 38.3 % 42.0-52.0 L MEAN CELL VOLUME (test code = MCV) 103.2 fL 80-98 H MEAN CELL HGB (test code = MCH) 34.0 picogram 27.0-33.0 H MEAN CELL HGB CONCETRATION (test code = MCHC) 32.9 gram/dL 33.0-36. 0 L RED CELL DISTRIBUTION WIDTH (test code = RDW) 12.8 % 11.6-16. 2 N RED CELL DISTRIBUTION WIDTH SD (test code = RDW-SD) 48.1 fL 37 .0-51.0 N PLATELET COUNT (test code = PLT) 165 K/mm3 150-450 N MEAN PLATELET VOLUME (test code = MPV) 10.5 fL 6.7-11.0 N NEUTROPHIL % (test code = NT%) 64.4 % 39.0-69.0 N IMMATURE GRANULOCYTE % (test code = IG%) 0.4 % 0.0-5.0 N LYMPHOCYTE % (test code = LY%) 18.6 % 25.0-55.0 L MONOCYTE % (test code = MO%) 7.5 % 0.0-10.0 N EOSINOPHIL % (test code = EO%) 7.5 % 0.0-5.0 H BASOPHIL % (test code = BA%) 1.6 % 0.0-1.0 H NUCLEATED RBC % (test code = NRBC%) 0.0 % 0-0 N NEUTROPHIL # (test code = NT#) 3.67 K/mm3 1.8-7.7 N IMMATURE GRANULOCYTE # (test code = IG#) 0.02 x10 3/uL 0-0.03 N LYMPHOCYTE # (test code = LY#) 1.06 K/mm3 1.0-5.0 N MONOCYTE # (test code = MO#) 0.43 K/mm3 0-0.8 N EOSINOPHIL # (test code = EO#) 0.43 K/mm3 0.0-0.5 N BASOPHIL # (test code = BA#) 0.09 K/mm3 0.0-0.2 N NUCLEATED RBC # (test code = NRBC#) 0.00 K/mm3 0.0-0.1 N MANUAL DIFF REQUIRED (test code = MDIFF) NO [id number] 05:28:00* Test Item Value Reference Range Interpretation Comments GLUBED (test code = GLUBED) 169 mg/dL 74-106 H [facility] [id number] 21:12:00* Test Item Value Reference Range Interpretation Comments GLUBED (test code = GLUBED) 200 mg/dL 74-106 H [facility] kick [facility] [id number] 17:31:00* Test Item Value Reference Range Interpretation Comments GLUBED (test code = GLUBED) 200 mg/dL 74-106 H Performed by certified kick press operator at [facility] [id number] 12:57:00* Test Item Value Reference Range Interpretation Comments GLUBED (test code = GLUBED) 128 mg/dL 74-106 H Performed by certified kick press operator at [facility] AG HEPAT B [id number] 12:52:00* Test Item Value Reference Range Interpretation Comments AG HEPAT B SURF (test code = HBSAG) Nonreactive Index Nonreactive [id number] 06:31:00* Test Item Value Reference Range Interpretation Comments GLUBED (test code = GLUBED) 138 mg/dL 74-106 H [facility] COMPREHENSIVE METABOLIC [id number] 06:24:00* Test Item Value Reference Range Interpretation Comments SODIUM (test code = NA) 138 mmol/L 136-145 N POTASSIUM (test code = K) 5.6 mmol/L 3.5-5.1 H CHLORIDE (test code = CL) 96.0 mmol/L 98-107 L CARBON DIOXIDE (test code = CO2) 26.0 mmol/L 21-32 N ANION GAP (test code = GAP) 21.6 10-20 H GLUCOSE (test code = GLU) 140 mg/dL 74-106 H BLOOD UREA NITROGEN (test code = BUN) 47 mg/dL 7-18 H GLOMERULAR FILTRATION RATE (test code = GFR) 7 mL/min >=60 Estimated GFR by using Modified MDRD formula.Chronic kidney disease is defined as either kidney damageor GFR <60 mL/min/1.73 m2 for >3 months. CREATININE (test code = CREAT) 8.50 mg/dL 0.7-1.3 H BUN/CREATININE RATIO (test code = BUN/CREA) 5.5 10-20 L TOTAL PROTEIN (test code = PROT) 7.6 gram/dL 6.4-8.2 N ALBUMIN (test code = ALB) 3.9 g/dL 3.4-5.0 N GLOBULIN (test code = GLOB) 3.7 gram/dL 2.7-4.2 N ALBUMIN/GLOBULIN RATIO (test code = A/G) 1.1 0.75-1.50 N CALCIUM (test code = CA) 8.8 mg/dL 8.5-10.1 N BILIRUBIN TOTAL (test code = BILT) 0.50 mg/dL 0.0-1.0 N SGOT/AST (test code = AST) 11 IUnit/L 15-37 L SGPT/ALT (test code = ALT) 15 IUnit/L 12-78 N ALKALINE PHOSPHATASE TOTAL (test code = ALKP) 56 IUnit/L 45-117 N Note change in reference range due to change in reagent. LIPID PROFILE (CORONARY RISK)2019-08-18 06:24:00* Test Item Value Reference Range Interpretation Comments TRIGLYCERIDES (test code = TRIG) 148 mg/dL 20-150 N CHOLESTEROL (test code = CHOL) 178 mg/dL 0-200 N CHOLESTEROL/HDL RATIO (test code = CHOLHDL) 3.0 RATIO 0-4.9 N RISK ASSOCIATED WITH CHOL/HDL RATIOS: Risk Male Female1/2 AVERAGE 3.43 3.27AVERAGE 4.97 4.442X AVERAGE 9.55 7.053X AVERAGE 23.39 11.04 REFERENCE VALUE IS RELATED TO RISK LEVELS ASRECOMMENDED BY THE [facility]. HEART, LUNG, AND BLOOD INST. HDL CHOLESTEROL (test code = HDL) 50 mg/dL 40-60 N LIPOPROTEIN LDL (test code = LDL) 111 mg/dL 100-129 N RN PERSONNEL, CONTACT PHYSICIAN IMMEDIATELY IF THIS IS A STROKE, AMI OR CAROTID STENOSIS PATIENT WHEN THE LDL >100 (1ST OCCURENCE, THIS ADMISSION) Reference Interval: mg/dL mmol/L Optimal <100 <2.6Near/above optimal 100-129 2.6- 3.3Borderline High 130-159 3.4-4.1High 160-189 4.1-4.9Very High >=190 >=4.9========= This LDL result is a direct measurement.========= THYROID STIMULATING [id number] 06:24:00* Test Item Value Reference Range Interpretation Comments THYROID STIMULATING HORMONE (test code = TSH) 2.120 uIU/mL 0.36-3.7 4 N TSH REFERENCE RANGES: EUTHYROID: 0.35 - 4.3 mIU/mL HYPO : > 5.5 mIU/mL HYPER : < 0.35 mIU/mL COMPREHENSIVE METABOLIC [id number] 05:58:00* Test Item Value Reference Range Interpretation Comments SODIUM (test code = NA) 138 mmol/L 136-145 N POTASSIUM (test code = K) 5.6 mmol/L 3.5-5.1 H CHLORIDE (test code = CL) 96.0 mmol/L 98-107 L CARBON DIOXIDE (test code = CO2) mmol/L 21-32 ANION GAP (test code = GAP) 10-20 GLUCOSE (test code = GLU) mg/dL 74-106 BLOOD UREA NITROGEN (test code = BUN) mg/dL 7-18 GLOMERULAR FILTRATION RATE (test code = GFR) mL/min >=60 CREATININE (test code = CREAT) mg/dL 0.7-1.3 BUN/CREATININE RATIO (test code = BUN/CREA) 10-20 TOTAL PROTEIN (test code = PROT) gram/dL 6.4-8.2 ALBUMIN (test code = ALB) g/dL 3.4-5.0 GLOBULIN (test code = GLOB) gram/dL 2.7-4.2 ALBUMIN/GLOBULIN RATIO (test code = A/G) 0.75-1.50 CALCIUM (test code = CA) mg/dL 8.5-10.1 BILIRUBIN TOTAL (test code = BILT) mg/dL 0.0-1.0 SGOT/AST (test code = AST) IUnit/L 15-37 SGPT/ALT (test code = ALT) IUnit/L 12-78 ALKALINE PHOSPHATASE TOTAL (test code = ALKP) IUnit/L 45-117 LIPID PROFILE (CORONARY RISK)2019-08-18 05:58:00* Test Item Value Reference Range Interpretation Comments TRIGLYCERIDES (test code = TRIG) mg/dL 20-150 CHOLESTEROL (test code = CHOL) mg/dL 0-200 CHOLESTEROL/HDL RATIO (test code = CHOLHDL) RATIO 0-4.9 HDL CHOLESTEROL (test code = HDL) mg/dL 40-60 LIPOPROTEIN LDL (test code = LDL) mg/dL 100-129 THYROID STIMULATING [id number] 05:58:00* Test Item Value Reference Range Interpretation Comments THYROID STIMULATING HORMONE (test code = TSH) uIU/mL 0.36-3.7 4 [id number] 05:47:00* Test Item Value Reference Range Interpretation Comments GLYCOSYLATED HEMOGLOBIN (HA1C) (test code = GLYHGB) 7.5 % HbA1 4. 8-6.0 H ESTIMATED AVERAGE GLUCOSE (test code = EAG) 169 MG/DL CBC W/AUTO [id number] 05:12:00* Test Item Value Reference Range Interpretation Comments WHITE BLOOD CELL (test code = WBC) 7.2 K/mm3 4.5-12.5 N RED BLOOD CELL (test code = RBC) 3.84 mill/mm3 4.0-5.8 L HEMOGLOBIN (test code = HGB) 13.0 gram/dL 13.0-17.5 N HEMATOCRIT (test code = HCT) 38.8 % 42.0-52.0 L MEAN CELL VOLUME (test code = MCV) 101.0 fL 80-98 H MEAN CELL HGB (test code = MCH) 33.9 picogram 27.0-33.0 H MEAN CELL HGB CONCETRATION (test code = MCHC) 33.5 gram/dL 33.0-36. 0 N RED CELL DISTRIBUTION WIDTH (test code = RDW) 13.0 % 11.6-16. 2 N RED CELL DISTRIBUTION WIDTH SD (test code = RDW-SD) 48.1 fL 37 .0-51.0 N PLATELET COUNT (test code = PLT) 170 K/mm3 150-450 N MEAN PLATELET VOLUME (test code = MPV) 10.5 fL 6.7-11.0 N NEUTROPHIL % (test code = NT%) 72.2 % 39.0-69.0 H IMMATURE GRANULOCYTE % (test code = IG%) 0.4 % 0.0-5.0 N LYMPHOCYTE % (test code = LY%) 13.4 % 25.0-55.0 L MONOCYTE % (test code = MO%) 8.4 % 0.0-10.0 N EOSINOPHIL % (test code = EO%) 4.8 % 0.0-5.0 N BASOPHIL % (test code = BA%) 0.8 % 0.0-1.0 N NUCLEATED RBC % (test code = NRBC%) 0.0 % 0-0 N NEUTROPHIL # (test code = NT#) 5.20 K/mm3 1.8-7.7 N IMMATURE GRANULOCYTE # (test code = IG#) 0.03 x10 3/uL 0-0.03 N LYMPHOCYTE # (test code = LY#) 0.97 K/mm3 1.0-5.0 L MONOCYTE # (test code = MO#) 0.61 K/mm3 0-0.8 N EOSINOPHIL # (test code = EO#) 0.35 K/mm3 0.0-0.5 N BASOPHIL # (test code = BA#) 0.06 K/mm3 0.0-0.2 N NUCLEATED RBC # (test code = NRBC#) 0.00 K/mm3 0.0-0.1 N MANUAL DIFF REQUIRED (test code = MDIFF) NO [id number] 21:22:00* Test Item Value Reference Range Interpretation Comments GLUBED (test code = GLUBED) 163 mg/dL 74-106 H [facility] - CT HEAD/BRAIN W/O [id number] 15:28:00 Name: LEANDRO THOMPSON FSED : 1965 Age/S: 54 / M [address] Unit #: [id number] Loc: [address] Phys: Chris Martell DO [place], [place] [address] Acct: [id number] Dis Date: Status: REG ER PHONE #: Exam Date: 08/17/2019 1342 FAX #: Reason: PEARL EXAMS: CPT CODE: [id number] CT HEAD/BRAIN W/O CONT 86836 HISTORY: Headaches. COMPARISON: None available. CT brain without contrast: Automated exposure control. Location: [facility]. No acute intracranial bleeds or extra- axial collections are noted. No acute territorial vascular infarction is noted. The sulci, gyri, ventricles and subarachnoid spaces and the basilar cisterns are normal for patient's age. No herniation or hydrocephalus or midline shift is noted. Mild periventricular ischemic gliosis is noted. Age-appropriate atrophy is n oted as well. Portions of the visualized paranasal sinuses are nor mal. No obvious bony calvarial defect is noted. Prosthetic right g lobe. IMPRESSION: No acute intracranial bleeds or extra-axial collections. No acute territorial vascular inf arction. No herniation or hydrocephalus or midline shift. Chronic white matter ischemic disease and atrophy . at 1 528 Reported and signed by: Monroe Trevino M.D. CC: Chris Martell DO Technologist:Vivek Quintanilla CTDI: DLP: Trnscb Date/Time: 08/17/2019 (1528) t.SDR.[email or web address] Orig Print D/T: S: 08/17/2019 (9400) PAGE 1 Signed Report B-TYPE NATRIURETIC [id number] 15:08:00* Test Item Value Reference Range Interpretation Comments B-TYPE NATRIURETIC PEPTIDE (test code = BNP) 455 pg/mL 0-100 H PROTHROMBIN [id number] 15:07:00* Test Item Value Reference Range Interpretation Comments PROTHROMBIN TIME PATIENT (test code = PTP) 10.2 seconds 9.0-13.0 N INTERNATIONAL NORMAL RATIO (test code = INR) 1.0 0.8-1.2 N The therapeutic range for oral anticoagulant therapy formost indications is an international normalized ratio (INR)of between 2.0 and 3.0. The recommended therapeutic INRrange for various clinical situations is listed below: Clinical Situation INR range Pulmonary e mbolism treatment (2.0-3.0)Venous thrombosis treatmentVenous thrombosis prophylaxis (high risk surgery)Prevention of systemic embolism from: Acute myocardial infarction Valvular heart disease Atrial fibrillation Mechanical prosthetic heart valves (2.5-3.5) IS PATIENT ON ANTICOAGULANTS? NTHROMBOPLASTIN TIME [id number] 15:07:00* Test Item Value Reference Range Interpretation Comments THROMBOPLASTIN TIME PARTIAL (test code = PTT) 22.5 seconds 25.5-34. 3 L Therapeutic Range for patients on Heparin Therapy is 2 to2.5 times their baseline PTT level. IS PATIENT ON ANTICOAGULANTS? NBASIC METABOLIC [id number] 15:07:00* Test Item Value Reference Range Interpretation Comments SODIUM (test code = NA) 134 mmol/L 128-145 N POTASSIUM (test code = K) 5.1 mmol/L 3.5-5.1 N CHLORIDE (test code = CL) 94.0 mmol/L 98-107 L CARBON DIOXIDE (test code = CO2) 32.8 mmol/L 22-29 H ANION GAP (test code = GAP) 12 mmol/L 10-20 N GLUCOSE (test code = GLU) 376 mg/dL 70-110 H BLOOD UREA NITROGEN (test code = BUN) 34 mg/dL 7-22 H GLOMERULAR FILTRATION RATE (test code = GFR) 9 mL/min >=60 Estimated GFR by using Modified MDRD formula.Chronic kidney disease is defined as either kidney damageor GFR <60 mL/min/1.73 m2 for >3 months. CREATININE (test code = CREAT) 6.47 mg/dL 0.55-1.3 H BUN/CREATININE RATIO (test code = BUN/CREA) 5.3 10-20 L CALCIUM (test code = CA) 8.7 mg/dL 8.0-10.5 N [id number] 15:07:00* Test Item Value Reference Range Interpretation Comments TROPONIN-I (test code = TROPI) 0.03 ng/mL 0.00-0.056 N - XR CHEST 1 [id number] 15:06:00 FAX: Chris Roberto DO [phone] [place]: [place] St: REG Name: LEANDRO HARDY [facility] FSED : [birth year] Age/S: 54/M [address] Unit #: [id number] Loc: [facility] [address] Phys: Chris Martell [place], [place] [address] Acct: [id number] Dis Date: Status: REG ER PHONE #: Exam Date: 08/17/2019 1345 FAX #: Reason: CHEST PAIN EXAMS: CPT CODE: [id number] XR CHEST 1 V 78792 HISTORY: Chest pain. COMPARISON: August 21, 2014. Location: [facility]. No acu te infiltrates, effusion or congestion is noted. Suboptimal inspiration. D ependent changes. Moderate cardiomegaly. Patient is post median sternotomy . IMPRESSION: No acute infiltrates, effusion or congestion. Electronically Signed by Virgilio Trevino on 2018 at 150 Reported and signed by: Monroe Trevino M.D. CC: Chris Martell DO Technologist: Vivek Quintanilla Trnscrd Date/Time/By: 08/17/2019 (1504) : By: [email or web address] Orig Print D/T: S: 08/17/2019 (7918) PAGE 1 Signed R eport CBC W/O [id number] 14:51:00* Test Item Value Reference Range Interpretation Comments WHITE BLOOD CELL (test code = WBC) 5.7 K/mm3 4.5-12.5 N RED BLOOD CELL (test code = RBC) 3.92 mill/mm3 4.0-5.8 L HEMOGLOBIN (test code = HGB) 13.4 gram/dL 13.0-17.5 N HEMATOCRIT (test code = HCT) 39.6 % 42.0-52.0 L MEAN CELL VOLUME (test code = MCV) 101.0 fL 80-98 H MEAN CELL HGB (test code = MCH) 34.2 picogram 27.0-33.0 H MEAN CELL HGB CONCETRATION (test code = MCHC) 33.8 gram/dL 33.0-36. 0 N RED CELL DISTRIBUTION WIDTH (test code = RDW) 12.9 % 11.6-16. 2 N RED CELL DISTRIBUTION WIDTH SD (test code = RDW-SD) 48.8 fL 37 .0-51.0 N PLATELET COUNT (test code = PLT) 179 K/mm3 150-450 N MEAN PLATELET VOLUME (test code = MPV) 10.1 fL 6.7-11.0 N Sodium [id number] 15:28:00* Test Item Value Reference Range Interpretation Comments Sodium Level (test code = 2951-2) 139 136-145 [facility]ballPotassium [id number] 15:28:00* Test Item Value Reference Range Interpretation Comments Potassium Level (test code = 2823-3) 4.6 3.5-5.1 [facility] TomballChloride [id number] 15:28:00* Test Item Value Reference Range Interpretation Comments Chloride Level (test code = 2075-0) 94 98-107 L [facility] TomballCarbon Dioxide [id number] 15:28:00* Test Item Value Reference Range Interpretation Comments Carbon Dioxide Level (test code = 2028-9) 21 22-29 L [facility] TomballAnion [id number] 15:28:00* Test Item Value Reference Range Interpretation Comments Anion Gap (test code = 08187-9) 28.6 8-16 H [facility] TomballBlood Urea [id number] 15:28:00* Test Item Value Reference Range Interpretation Comments Blood Urea Nitrogen (test code = 3094-0) 73 7-26 H [facility] TomballCreatinine2019-06-23 15:28:00* Test Item Value Reference Range Interpretation Comments Creatinine (test code = 2160-0) 9.89 0.72-1.25 H [facility] TomballBUN/Creatinine [id number] 15:28:00* Test Item Value Reference Range Interpretation Comments BUN/Creatinine Ratio (test code = 3097-3) 7 6-25 [facility] TomballEstimat Glomerular Filtration Rate 2019-04-08 15:28:00* Test Item Value Reference Range Interpretation Comments Estimat Glomerular Filtration Rate (test code = 945068632) 6 >60 L Ranges were taken from the National Kidney Disease Education Program and the [facility] literature.Reference ranges:60 or greater: Bgrqeh79-17 ( for 3 consecutive months): Chronic kidney disease 15 or less: Kidney failureHCA Houston Healthcare TomballGlucose [id number] 15:28:00* Test Item Value Reference Range Interpretation Comments Glucose Level (test code = STY3179) 68 74-118 L [facility] TomballCalcium [id number] 15:28:00* Test Item Value Reference Range Interpretation Comments Calcium Level (test code = 02791-6) 9.0 8.4-10.2 [facility] TomballTotal [id number] 15:28:00* Test Item Value Reference Range Interpretation Comments Total Bilirubin (test code = 1975-2) 0.5 0.2-1.2 [facility] TomballAspartate Amino Transf (AST/SGOT) 2019-04-08 15:28:00* Test Item Value Reference Range Interpretation Comments Aspartate Amino Transf (AST/SGOT) (test code = Aspartate Amino Transf (AST/SGOT)) 19 5-34 [facility] TomballAlanine Aminotransferase (ALT/SGPT) 2019-04-08 15:28:00* Test Item Value Reference Range Interpretation Comments Alanine Aminotransferase (ALT/SGPT) (test code = 1742-6) 13 0-55 [facility] TomballTotal [id number] 15:28:00* Test Item Value Reference Range Interpretation Comments Total Protein (test code = 2885-2) 7.0 6.5-8.1 [facility] TomballAlbumin2019-06-23 15:28:00* Test Item Value Reference Range Interpretation Comments Albumin (test code = 1751-7) 4.1 3.5-5.0 [facility] TomballGlobulin2019-06-23 15:28:00* Test Item Value Reference Range Interpretation Comments Globulin (test code = 22984-1) 2.9 2.3-3.5 [facility] TomballAlbumin/Globulin [id number] 15:28:00 * Test Item Value Reference Range Interpretation Comments Albumin/Globulin Ratio (test code = 1759-0) 1.4 0.8-2.0 [facility] TomballAlkaline Tayffribnqy0806-44-33 15:28:00* Test Item Value Reference Range Interpretation Comments Alkaline Phosphatase (test code = 6768-6) 67 40-150 [facility] TomballMagnesium [id number] 13:43:00* Test Item Value Reference Range Interpretation Comments Magnesium Level (test code = 24037-1) 3.0 1.3-2.1 H [facility] TomballLactic Acid [id number] 11:33:00* Test Item Value Reference Range Interpretation Comments Lactic Acid Level (test code = Lactic Acid Level) 9.0 4.5- 19.8 [facility] TomballWhite Blood Edatb4555-75-76 11:21:00* Test Item Value Reference Range Interpretation Comments White Blood Count (test code = 6690-2) 7.46 4.8-10.8 [facility] TomballRed Blood Xooru5220-03-27 11:21:00* Test Item Value Reference Range Interpretation Comments Red Blood Count (test code = 789-8) 3.73 4.3-5.7 L [facility] TomballHemoglobin2019-06-23 11:21:00* Test Item Value Reference Range Interpretation Comments Hemoglobin (test code = 95440-4) 12.5 14.0-18.0 L [facility] TomballHematocrit2019-06-23 11:21:00* Test Item Value Reference Range Interpretation Comments Hematocrit (test code = 4544-3) 36.5 38.2-49.6 L [facility] TomballMean Corpuscular Gjjvhy7212-84-93 11:21:00* Test Item Value Reference Range Interpretation Comments Mean Corpuscular Volume (test code = 787-2) 97.9 81-99 [facility] TomballMean Corpuscular Wgvpclisfg7487-71-37 11:21:00* Test Item Value Reference Range Interpretation Comments Mean Corpuscular Hemoglobin (test code = 785-6) 33.5 28-32 H [facility] TomballMean Corpuscular Hemoglobin Concent 2019-04-08 11:21:00* Test Item Value Reference Range Interpretation Comments Mean Corpuscular Hemoglobin Concent (test code = 786-4) 34.2 31-35 [facility] TomballRed Cell Distribution Pcouo7674-80-45 11:21:00* Test Item Value Reference Range Interpretation Comments Red Cell Distribution Width (test code = 87907-9) 13.7 11.7 -14.4 [facility] TomballPlatelet Cvxqx0711-41-05 11:21:00* Test Item Value Reference Range Interpretation Comments Platelet Count (test code = 777-3) 223 140-360 [facility] TomballNeutrophils (%) (Auto)2019-04-08 11:21:00 * Test Item Value Reference Range Interpretation Comments Neutrophils (%) (Auto) (test code = 37256-4) 77.6 38.7-80.0 [facility] TomballLymphocytes (%) (Auto)2019-04-08 11:21:00 * Test Item Value Reference Range Interpretation Comments Lymphocytes (%) (Auto) (test code = 736-9) 11.5 18.0-39.1 L [facility] TomballMonocytes (%) (Auto)2019-04-08 11:21:00* Test Item Value Reference Range Interpretation Comments Monocytes (%) (Auto) (test code = 5905-5) 5.4 4.4-11.3 [facility] TomballEosinophils (%) (Auto)2019-04-08 11:21:00 * Test Item Value Reference Range Interpretation Comments Eosinophils (%) (Auto) (test code = 713-8) 4.2 0.0-6.0 [facility] (Auto)2019-04-08 11:21:00* Test Item Value Reference Range Interpretation Comments Basophils (%) (Auto) (test code = 706-2) 0.9 0.0-1.0 [facility] %2019-04-08 11:21:00* Test Item Value Reference Range Interpretation Comments IM GRANULOCYTES % (test code = IM GRANULOCYTES %) 0.4 0.0- 1.0 [facility]ballNeutrophils # (Auto)2019-04-08 11:21:00* Test Item Value Reference Range Interpretation Comments Neutrophils # (Auto) (test code = 751-8) 5.8 2.1-6.9 [facility]ballLymphocytes # (Auto)2019-04-08 11:21:00* Test Item Value Reference Range Interpretation Comments Lymphocytes # (Auto) (test code = 76544-1) 0.9 1.0-3.2 L [facility]ocytes # (Auto)2019-04-08 11:21:00* Test Item Value Reference Range Interpretation Comments Monocytes # (Auto) (test code = 742-7) 0.4 0.2-0.8 [facility]osin[facility] # (Auto)2019-04-08 11:21:00* Test Item Value Reference Range Interpretation Comments Eosinophils # (Auto) (test code = 711-2) 0.3 0.0-0.4 [facility] # (Auto)2019-04-08 11:21:00* Test Item Value Reference Range Interpretation Comments Basophils # (Auto) (test code = 704-7) 0.1 0.0-0.[address] [facility]auto 2019-04-08 11:21:00* Test Item Value Reference Range Interpretation Comments Absolute Immature Granulocyte (auto (tamara t code = Absolute Immature Granulocyte (auto) 0.03 0-0.[address] [facility]FING[facility] [id number] 11:05:00 [facility] [address] [address] Patient Name: LEANDRO THOMPSON MR #: [id number] : 1965 Age/Sex: 54/M Req #: [id number] Adm Physician: Ordered by: ASHLEY THOMPSON AEROLOGIST Report #: [id number] Location: ER Room/Bed: Procedure: [id number] DX/ANAND CHILDS LEFT Exam Date: 04/08/19 Exam Time: 1050 REPORT STATUS: Signed Exam: Finger x-rays History: Pain in fourth finger, infection in fourth digit tip for one week Comparison: None. Findings: There is normal bone mineralizat ion. No acute, displaced fracture or dislocation. Joint spaces relatively wel l preserved. No bony cortical erosion or destruction.. Soft tissue defect in t he volar aspect of the fourth digit tip, with associated moderate soft tissue swelling.. Vascular calcifications. Impression: 1. Soft tissue defe ct in the volar aspect of the fourth digit tip, which may represent an ulcerat ion. Associated moderate soft tissue swelling. No underlying bony erosion or c ortical destruction to suggest osteomyelitis. Signed by: Dr. Ashwin hairston M.D. on 04/08/2019 11:07 AM Dictated By: ASHWIN ADHIKARI MD Electr onically Signed By: ASHWIN ADHIKARI MD on 04/08/191106 Transcribed By: ABDOULAYE on 04/08/191106 COPY TO: ASHLEY THOMPSON NP Stool Calprotectin 2018-09-04 23:43:00* Test Item Value Reference Range Interpretation Comments Stool Calprotectin (test code = 09103-7) <16 0-120 Results verified by repeat testingConcentration Interpretation Follow- Up<16 - 50 ug/g Normal None>50 -120 ug/g Borderline Re- evaluate in 4-6 weeks >120 ug/g Abnormal Repeat as clinically indicatedPerformed at: [address] [id number] Director: Toña Keita MD, Phone: [phone] [facility]ball Clostridium Difficile Toxin A & U5455-92-91 16:39:00* Test Item Value Reference Range Interpretation Comments Clostridium Difficile Toxin A & B (test code = 482400414) NEGATIVE NEGATIVE Testing on stool aspirate specimens is outside doughnut icer claims since specime n type not validated on this assay.[facility] Clear Laketool Lactoferrin (LAB)2018-08-24 13:36:00* Test Item Value Reference Range Interpretation Comments Stool Lactoferrin (LAB) (test code = 46713-3) NEGATIVE NEGATIVE Testing on stool aspirate specimens is outside doughnut icer claims since specime n type not validated on this assay.[facility] Bedside Xqwmmgj4710-20-16 10:11:00* Test Item Value Reference Range Interpretation Comments Bedside Glucose (test code = 66242-2) 90 70-120 Meter ID: [id number] [facility] Healthcare TomballHepatitis Be Antigen 2018-07-18 12:41:00* Test Item Value Reference Range Interpretation Comments Hepatitis Be Antigen (test code = 75792-9) Negative Negative Performed at: [facility] Lab[address] [id number] Director: Diogenes Garcia MD, Phone: [phone] [facility] Healthcare TomballDifferential Total Cells Zziiawh3751-35-47 08:21:00* Test Item Value Reference Range Interpretation Comments Differential Total Cells Counted (test code = Carol france Total Cells Counted) 100 [facility] TomballNeutrophils % (Manual)2018-07-17 08:21:00 * Test Item Value Reference Range Interpretation Comments Neutrophils % (Manual) (test code = 04332-5) 78 40-74 H [facility] TomballLymphocytes % (Manual)2018-07-17 08:21:00 * Test Item Value Reference Range Interpretation Comments Lymphocytes % (Manual) (test code = 737-7) 10 19-48 L [facility] TomballMonocytes % (Manual)2018-07-17 08:21:00* Test Item Value Reference Range Interpretation Comments Monocytes % (Manual) (test code = 744-3) 7 3.4-9.0 [facility] TomballBasophils % (Manual)2018-07-17 08:21:00* Test Item Value Reference Range Interpretation Comments Basophils % (Manual) (test code = 59907-3) 5 0-1.5 H [facility] TomballPlatelet Nzqufhbv1575-09-39 08:21:00* Test Item Value Reference Range Interpretation Comments Platelet Estimate (test code = 27482-9) ADEQUATE [facility] TomballPlatelet Morphology Ykgpxjs8734-69-64 08:21:00* Test Item Value Reference Range Interpretation Comments Platelet Morphology Comment (test code = 49905-7) NORMAL [facility] TomballHypochromasia2018-10-01 08:21:00* Test Item Value Reference Range Interpretation Comments Hypochromasia (test code = 728-6) SLIGHT [facility] TomballRed Cell Morphology Rhhtqiv9658-76-07 08:21:00* Test Item Value Reference Range Interpretation Comments Red Cell Morphology Comment (test code = 6742-1) NORMAL [facility] TomballPhosphorus Gzqaa3280-49-86 07:33:00* Test Item Value Reference Range Interpretation Comments Phosphorus Level (test code = DOS5784) 7.8 2.3-4.7 H [facility] TomballTriglycerides Bslah0610-45-64 07:08:00* Test Item Value Reference Range Interpretation Comments Triglycerides Level (test code = 2571-8) 113 0-149 [facility] TomballCholesterol Ihtps4273-57-55 07:08:00* Test Item Value Reference Range Interpretation Comments Cholesterol Level (test code = 2093-3) 154 0-199 Less than 200 mg/dL Low Gijt505 - 239 mg/dL Borderline Uyyc964 m g/dl and greater High Risk [facility] TomballLDL Vuuwjcelltx3119-15-92 07:08:00* Test Item Value Reference Range Interpretation Comments LDL Cholesterol (test code = 2089-1) 81 60-130 [facility] TomballHDL Wdstpzsoweq5422-32-71 07:08:00* Test Item Value Reference Range Interpretation Comments HDL Cholesterol (test code = 2085-9) 50 40-60 [facility] TomballCholesterol/HDL Qgsbe4872-28-08 07:08:00 * Test Item Value Reference Range Interpretation Comments Cholesterol/HDL Ratio (test code = 9830-1) 3.1 3.9-4.7 L [facility] TomballCreatine Kinase GJ2894-55-97 14:39:00* Test Item Value Reference Range Interpretation Comments Creatine Kinase MB (test code = 93404-0) 2.10 0-5.0 [facility] TomballTroponin H2734-74-69 14:39:00* Test Item Value Reference Range Interpretation Comments Troponin I (test code = XRF6139) 0.064 0-0.300 [facility] TomballCreatine Hketfp8234-62-82 14:31:00* Test Item Value Reference Range Interpretation Comments Creatine Kinase (test code = 2157-6) 101 30-200 [facility] TomballUS ATOJHNTNDBH5617-10-68 04:17:00 [facility] [address] [address] Patient Name: LEANDRO THOMPSON MR #: [id number] : 1965 Age/Sex: 53/M Req #: [id number] Adm Physician: OLEGARIO ALEXANDER MD Ordered by: DOUGIE JIMENEZ MD Report #: [id number] Location: [facility] Room[facility]Bed[facility] Procedure: [id number] US/US GALLBLADDER Exam Date: 07/16/18 Exam Time: 3 REPORT STATUS: Signed EXAM: US GALLBLADDER INDICATION: Abdominal pain COMPARISON: CT of the abdomen and pelvis without IV contrast July 16, 2018 TECHNIQUE: Transverse and longitudinal sonographic images of the right upper abdomen were obtained. FINDINGS: LIVER: 16 cm in the right midc lavicular line. Normal echogenicity, normal contour, no masses. Main Portal Vein: Normal size with hepatopetal flow. GALLBLADDER: Marked gallbladder wall thickening up to 8 mm and pericholecystic fluid. Negative sonographic Mur phy's sign. BILE DUCTS: No intra nor extra-hepatic dilation. Common steven e duct measures 0.5 cm. PANCREAS: Visualized portions are normal. RIGH T KIDNEY: 7.9 cm in length Echogenicity: Normal Collecting System: No hydro nephrosis Stones: None Cyst/Mass: None FREE FLUID: None in the right u pper quadrant of the abdomen IMPRESSION: Marked gallbladder wall thickeni ng and pericholecystic fluid. However the sonographic Castellano's sign was negati ve and there are no gallstones. Signed by: Dr. Mallory Roe M.D. on 4:56 AM Dictated By: MALLORY ROE MD 5 Transcribed By: ABDOULAYE on 07/16/18455 COPY TO: DOUGIE JIMENEZ MD Urine Xppas7570-45-76 01:26:00* Test Item Value Reference Range Interpretation Comments Urine Color (test code = 5778-6) YELLOW YELLOW [facility] Knqfuwe6999-98-01 01:26:00* Test Item Value Reference Range Interpretation Comments Urine Clarity (test code = 29938-7) CLOUDY CLEAR H [facility] TomballUrine Specific Lytcaae7994-34-53 01:26:00 * Test Item Value Reference Range Interpretation Comments Urine Specific Isabella (test code = 5811-5) 1.020 1.010-1.02 5 [facility] TomballUrine xA9863-38-69 01:26:00* Test Item Value Reference Range Interpretation Comments Urine pH (test code = 48223-0) 7 5-7 [facility] TomballUrine Leukocyte Jcojwvox4591-71-30 01:26:00* Test Item Value Reference Range Interpretation Comments Urine Leukocyte Esterase (test code = 5799-2) 1+ NEGATIVE H [facility] TomballUrine Bwbolbp4642-69-90 01:26:00* Test Item Value Reference Range Interpretation Comments Urine Nitrite (test code = 66121-1) NEGATIVE NEGATIVE [facility] TomballUrine Ztrlfiq0151-10-63 01:26:00* Test Item Value Reference Range Interpretation Comments Urine Protein (test code = 5804-0) 3+ NEGATIVE H [facility] TomballUrine Glucose (UA)2018-07-16 01:26:00* Test Item Value Reference Range Interpretation Comments Urine Glucose (UA) (test code = 2349-9) 1+ NEGATIVE H [facility] TomballUrine Lqkbufv2526-41-71 01:26:00* Test Item Value Reference Range Interpretation Comments Urine Ketones (test code = 66819-8) NEGATIVE NEGATIVE [facility] TomballUrine Nzysuxmismlp6930-99-76 01:26:00* Test Item Value Reference Range Interpretation Comments Urine Urobilinogen (test code = 28829-7) 0.2 0.2-1 [facility] TomballUrine Ltlizbmiw1708-09-87 01:26:00* Test Item Value Reference Range Interpretation Comments Urine Bilirubin (test code = 1978-6) NEGATIVE NEGATIVE [facility] TomballUrine Seibh4476-95-45 01:26:00* Test Item Value Reference Range Interpretation Comments Urine Blood (test code = 37484-2) TRACE NEGATIVE H [facility] TomballUrine FZE5897-55-09 01:26:00* Test Item Value Reference Range Interpretation Comments Urine WBC (test code = 5821-4) 21-50 0-5 H [facility] TomballUrine LNW9262-09-40 01:26:00* Test Item Value Reference Range Interpretation Comments Urine RBC (test code = 97131-7) 6-10 0-5 H [facility] TomballUrine Ihzejrqk6776-74-69 01:26:00* Test Item Value Reference Range Interpretation Comments Urine Bacteria (test code = 33700-3) FEW NONE [facility] TomballUrine Epithelial Ksdao0412-97-81 01:26:00 * Test Item Value Reference Range Interpretation Comments Urine Epithelial Cells (test code = 07172-1) FEW NONE [facility] TomballUrine Ftnci8463-27-91 01:26:00* Test Item Value Reference Range Interpretation Comments Urine Sperm (test code = 8248-7) [facility] MJ9021-34-04 01:20:00 [address] [address] Patient Name: LEANDRO THOMPSON MR #: [id number] : [birth year] Age/Sex: 53/M Req #: [id number] Adm Physician: Ordered by: DOUGIE JIMENEZ MD Report #: [id number] Location: ER Room/Bed: Procedure: [id number] CT/CT ABDOMEN/PELVIS WO Exam Date : Exam Time: REPORT STATUS: Signed EXAM: C T ABDOMEN AND PELVIS without IV CONTRAST INDICATION: Nausea, vomiting and abd ominal pain COMPARISON: None TECHNIQUE: The abdomen and pelvis were scanne d using a multidetector helical scanner. Coronal and sagittal reformations wer e obtained. Dose modulation, iterative reconstruction, and/or weight based adj ustment of the mA/kV was utilized to reduce the radiation dose to as low as re asonably achievable. Routine protocol performed. IV Contrast: None Oral Co ntrast: Gastrografin CTDIvol has been reviewed. It is below the limits set by the Radiation Protocol Committee (RPC). FINDINGS: LOWER THORAX: No cons olidations. Partially visualized cardiomegaly and coronary artery calcificatio ns. LIVER: No masses. Portal edema. BILIARY: Marked gallbladder wall thic kening and adjacent inflammation. SPLEEN: No masses PANCREAS: No masses ADRENALS: Bilateral adrenal gland hyperplasia. RIGHT KIDNEY: No nephro ureterolithiasis or hydronephrosis. LEFT KIDNEY: No nephroureterolithiasis or hydronephrosis. GI TRACT: Thickening of the colon at the hepatic flexur e, may be reactive. No bowel obstruction. Normal appendix. VESSELS: Tyler ed atherosclerotic changes of the abdominal aorta without aneurysm. PERITONE UM/RETROPERITONEUM: Right upper quadrant free fluid and inflammatory changes. LYMPH NODES: No lymphadenopathy REPRODUCTIVE ORGANS: Normal BLADDER: No rmal SOFT TISSUES: Normal BONES: Nonspecific 2 cm lucency with central sc lerosis in the right posterior ninth rib, appears benign, possibly fibrous dys plasia. IMPRESSION: Findings suspicious for acute cholecystitis. A right upper quadrant ultrasound is recommended for further evaluation. Signed b y: Dr. Mallory Roe M.D. on 07/16/2018 1:27 AM Dictated By: MALLORY HOWELL MD 6 Transcrib ed By: ABDOULAYE on 07/16/18126 COPY TO: DOUGIE JIMENEZ MD Amylase Zygwy9851-58-81 01:00:00* Test Item Value Reference Range Interpretation Comments Amylase Level (test code = 1798-8) 86 25-125 [facility] TomballLipase2018-09-30 01:00:00* Test Item Value Reference Range Interpretation Comments Lipase (test code = 3040-3) 30 8-78 [facility] TomballCHEST SINGLE (PORTABLE)2018-07-16 00:40:00 [facility] [address] [address] Patient Name: LEANDRO THOMPSON MR #: [id number] : 1965 Age/Sex: 53/M Req #: [id number] Adm Physician: Ordered by: DOUGIE JIMENEZ MD Report #: [id number] Location: ER Room/Bed: Procedure: [id number] DX/CHEST SINGLE (PORTABLE) Exam D ate: 07/16/18 Exam Time: 1200 REPORT STATUS: Si gned EXAM: CHEST SINGLE (PORTABLE), AP 1 view INDICATION: Nausea and vomiti ng COMPARISON: AP view of the chest March 27, 2016 FINDINGS: LINES/TUBES : None LUNGS: No consolidations. Stable vascular congestion. PLEURA: N o effusions or pneumothorax. HEART AND MEDIASTINUM: Stable cardiomegaly and median sternotomy wires. Surgical changes of coronary artery bypass. BON ES AND SOFT TISSUES: No acute findings. IMPRESSION: Stable cardiomegaly and vascular congestion. Signed by: Dr. Mallory Roe M.D. on 12:41 AM Dictated By: MALLORY ROE MD Transcribed By: ABDOULAYE on 07/16/1840 COPY TO: DOUGIE JIMENEZ MD Activated Partial Thromboplast Time 2018-07-15 23:29:00* Test Item Value Reference Range Interpretation Comments Activated Partial Thromboplast Time (test code = 48295-3) 31.6 23.8-35.5 [facility] TomballProthrombin Yqgt7192-03-64 23:18:00* Test Item Value Reference Range Interpretation Comments Prothrombin Time (test code = 5902-2) 14.5 11.9-14.5 [facility] TomballProthromb Time International Ratio 2018-07-15 23:18:00* Test Item Value Reference Range Interpretation Comments Prothromb Time International Ratio (test code = 6301-6) 1.04 Oral Anticoagulant Therapy INR Values:1. Low Intensity Therapy 1.5 - 2.02 . Moderate Intensity Therapy 2.0 - 3.03. High Intensity Therapy(1) 2.5 - 3. 54. High Intensity Therapy(2) 3.0 - 4.05. Panic Value INR > 5.0 [facility] Clear Lakeodium Jawml0844-71-34 14:52:00* Test Item Value Reference Range Interpretation Comments Sodium Level (test code = 2951-2) 137 136-145 [facility] TomballPotassium Wzstp7468-65-65 14:52:00* Test Item Value Reference Range Interpretation Comments Potassium Level (test code = 2823-3) 5.0 3.5-5.1 No hemolysis presentHCA [facility] Healthcare TomballChloride Level 2018-01-31 14:52:00* Test Item Value Reference Range Interpretation Comments Chloride Level (test code = 2075-0) 97 98-107 L [facility] TomballCarbon Dioxide Kqxpv4519-21-36 14:52:00* Test Item Value Reference Range Interpretation Comments Carbon Dioxide Level (test code = 2028-9) 26 22-29 [facility] TomballAnion Gzo3445-87-70 14:52:00* Test Item Value Reference Range Interpretation Comments Anion Gap (test code = 45474-4) 19.0 8-16 H [facility] TomballBlood Urea Albqscym6411-53-80 14:52:00* Test Item Value Reference Range Interpretation Comments Blood Urea Nitrogen (test code = 3094-0) 34 7-26 H [facility] TomballCreatinine2018-04-17 14:52:00* Test Item Value Reference Range Interpretation Comments Creatinine (test code = 2160-0) 7.33 0.72-1.25 H [facility] TomballBUN/Creatinine Zlurs6761-47-09 14:52:00* Test Item Value Reference Range Interpretation Comments BUN/Creatinine Ratio (test code = 3097-3) 5 6-25 L [facility] TomballEstimat Glomerular Filtration Rate 2018-01-31 14:52:00* Test Item Value Reference Range Interpretation Comments Estimat Glomerular Filtration Rate (test code = 91321-3) 8 >60 L Ranges were taken from the National Kidney Disease Education Program and the [facility] Kid[facility] Foundation literature.Reference ranges:60 or greater: Mkrogq98-98 ( for 3 consecutive months): Chronic kidney disease 15 or less: Kidney failureHCA Houston Healthcare TomballGlucose Xxvop1444-49-87 14:52:00* Test Item Value Reference Range Interpretation Comments Glucose Level (test code = SYP4746) 142 74-118 H [facility] TomballCalcium Pjzzf3991-05-30 14:52:00* Test Item Value Reference Range Interpretation Comments Calcium Level (test code = 47764-5) 9.0 8.4-10.2 [facility] TomballTotal Vvpgvksqb6911-00-78 14:52:00* Test Item Value Reference Range Interpretation Comments Total Bilirubin (test code = 1975-2) 0.6 0.2-1.2 [facility] TomballAspartate Amino Transf (AST/SGOT) 2018-01-31 14:52:00* Test Item Value Reference Range Interpretation Comments Aspartate Amino Transf (AST/SGOT) (test code = Aspartate Amino Transf (AST/SGOT)) 12 5-34 [facility] TomballAlanine Aminotransferase (ALT/SGPT) 2018-01-31 14:52:00* Test Item Value Reference Range Interpretation Comments Alanine Aminotransferase (ALT/SGPT) (test code = 1742-6) -6 0-55 [facility] TomballTotal Qimxadb6818-95-76 14:52:00* Test Item Value Reference Range Interpretation Comments Total Protein (test code = 2885-2) 7.4 6.5-8.1 [facility] TomballAlbumin2018-04-17 14:52:00* Test Item Value Reference Range Interpretation Comments Albumin (test code = 1751-7) 3.8 3.5-5.0 [facility] TomballGlobulin2018-04-17 14:52:00* Test Item Value Reference Range Interpretation Comments Globulin (test code = 77507-0) 3.6 2.3-3.5 H [facility] TomballAlbumin/Globulin Dfoqx6905-77-07 14:52:00 * Test Item Value Reference Range Interpretation Comments Albumin/Globulin Ratio (test code = 1759-0) 1.1 0.8-2.0 [facility] TomballAlkaline Bihfbinfiki4052-15-68 14:52:00* Test Item Value Reference Range Interpretation Comments Alkaline Phosphatase (test code = 6768-6) 63 40-150 [facility] TomballWhite Blood Sznzw3506-74-08 14:30:00* Test Item Value Reference Range Interpretation Comments White Blood Count (test code = 6690-2) 6.42 4.8-10.8 [facility] TomballRed Blood Ufvzz5896-73-54 14:30:00* Test Item Value Reference Range Interpretation Comments Red Blood Count (test code = 789-8) 3.77 4.3-5.7 L [facility] TomballHemoglobin2018-04-17 14:30:00* Test Item Value Reference Range Interpretation Comments Hemoglobin (test code = 42496-2) 12.7 14.0-18.0 L [facility] TomballHematocrit2018-04-17 14:30:00* Test Item Value Reference Range Interpretation Comments Hematocrit (test code = 4544-3) 38.0 38.2-49.6 L [facility] TomballMean Corpuscular Nuxmcn1333-87-16 14:30:00* Test Item Value Reference Range Interpretation Comments Mean Corpuscular Volume (test code = 787-2) 100.8 81-99 H [facility] TomballMean Corpuscular Fueisaawzn3117-30-08 14:30:00* Test Item Value Reference Range Interpretation Comments Mean Corpuscular Hemoglobin (test code = 785-6) 33.7 28-32 H [facility] TomballMean Corpuscular Hemoglobin Concent 2018-01-31 14:30:00* Test Item Value Reference Range Interpretation Comments Mean Corpuscular Hemoglobin Concent (test code = 786-4) 33.4 31-35 [facility] TomballRed Cell Distribution Kegqa6696-93-02 14:30:00* Test Item Value Reference Range Interpretation Comments Red Cell Distribution Width (test code = 93475-4) 13.8 11.7 -14.4 [facility] TomballPlatelet Dajrd0834-81-94 14:30:00* Test Item Value Reference Range Interpretation Comments Platelet Count (test code = 777-3) 152 140-360 [facility] TomballNeutrophils (%) (Auto)2018-01-31 14:30:00 * Test Item Value Reference Range Interpretation Comments Neutrophils (%) (Auto) (test code = 17586-0) 72.5 38.7-80.0 [facility] TomballLymphocytes (%) (Auto)2018-01-31 14:30:00 * Test Item Value Reference Range Interpretation Comments Lymphocytes (%) (Auto) (test code = 736-9) 11.4 18.0-39.1 L [facility] TomballMonocytes (%) (Auto)2018-01-31 14:30:00* Test Item Value Reference Range Interpretation Comments Monocytes (%) (Auto) (test code = 5905-5) 8.7 4.4-11.3 [facility] TomballEosinophils (%) (Auto)2018-01-31 14:30:00 * Test Item Value Reference Range Interpretation Comments Eosinophils (%) (Auto) (test code = 713-8) 6.4 0.0-6.0 H [facility] TomballBasophils (%) (Auto)2018-01-31 14:30:00* Test Item Value Reference Range Interpretation Comments Basophils (%) (Auto) (test code = 706-2) 0.8 0.0-1.0 [facility] TomballIM GRANULOCYTES %2018-01-31 14:30:00* Test Item Value Reference Range Interpretation Comments IM GRANULOCYTES % (test code = IM GRANULOCYTES %) 0.2 0.0- 1.0 [facility] TomballNeutrophils # (Auto)2018-01-31 14:30:00* Test Item Value Reference Range Interpretation Comments Neutrophils # (Auto) (test code = 751-8) 4.7 2.1-6.9 [facility] TomballLymphocytes # (Auto)2018-01-31 14:30:00* Test Item Value Reference Range Interpretation Comments Lymphocytes # (Auto) (test code = 42372-7) 0.7 1.0-3.2 L [facility] TomballMonocytes # (Auto)2018-01-31 14:30:00* Test Item Value Reference Range Interpretation Comments Monocytes # (Auto) (test code = 742-7) 0.6 0.2-0.8 [facility] TomballEosinophils # (Auto)2018-01-31 14:30:00* Test Item Value Reference Range Interpretation Comments Eosinophils # (Auto) (test code = 711-2) 0.4 0.0-0.4 [facility] TomballBasophils # (Auto)2018-01-31 14:30:00* Test Item Value Reference Range Interpretation Comments Basophils # (Auto) (test code = 704-7) 0.1 0.0-0.1 [facility] TomballAbsolute Immature Granulocyte (auto 2018-01-31 14:30:00* Test Item Value Reference Range Interpretation Comments Absolute Immature Granulocyte (auto (tamara t code = Absolute Immature Granulocyte (auto) 0.01 0-0.1 [facility] TomballProthrombin Ginf1533-03-50 00:17:00* Test Item Value Reference Range Interpretation Comments Prothrombin Time (test code = 5902-2) 13.4 11.9-14.5 [facility] TomballProthromb Time International Ratio 2017-10-02 00:17:00* Test Item Value Reference Range Interpretation Comments Prothromb Time International Ratio (test code = 6301-6) 0.97 Oral Anticoagulant Therapy INR Values:1. Low Intensity Therapy 1.5 - 2.02 . Moderate Intensity Therapy 2.0 - 3.03. High Intensity Therapy(1) 2.5 - 3. 54. High Intensity Therapy(2) 3.0 - 4.05. Panic Value INR > 5.0 [facility] TomballActivated Partial Thromboplast Time 2017-10-02 00:17:00* Test Item Value Reference Range Interpretation Comments Activated Partial Thromboplast Time (test code = 60091-0) 27.8 23.8-35.5 [facility]
--- NOTE | 2020-05-28 09:27 | Diagnostic Imaging Report ---
EXAMINATION: CHEST SINGLE (PORTABLE) INDICATION: FEVER, COUGH. ESRD PT COMPARISON: CT Chest 09/03/2019, Chest radiograph 09/02/2019. FINDINGS: TUBES and LINES: None. LUNGS: Lungs are well inflated. Central vascular congestion. Patchy bibasilar opacities. PLEURA: No pleural effusion or pneumothorax. HEART AND MEDIASTINUM: The cardiomediastinal silhouette is mildly enlarged. There are atherosclerotic calcifications within the aorta. BONES AND SOFT TISSUES: No acute osseous abnormality. Status post median sternotomy. UPPER ABDOMEN: No free air under the diaphragm. IMPRESSION: Mild cardiomegaly with central vascular congestion. Patchy bibasilar opacities, which may represent infection or pulmonary edema in the appropriate clinical setting. Signed by: Dr. Xiomara Burden MD on 05/28/2020 9:23 AM
[2020-05-28] MEDS ORDERED: DIPHENHYDRAMINE HCL 25 MG CAP PO ONE (09:45)
[2020-05-28] MEDS ORDERED: DIPHENHYDRAMINE HCL 25 MG CAP ONE (09:52)
--- NOTE | 2020-05-28 10:09 | Emergency Department Note ---
History of Present Illnes History of Present Illness Chief Complaint: Flu Like Symptoms History of Present Illness This is a 55 year old male PATIENT SENT FROM DIALYSIS WITHOUT TR EATMENT. FEVER, COUGH X 2 DAYS. PATIENT TOOK TYLENOL 650 MG AT 430 AM. PATIENT STATES HIS HAS ALSO BEEN WITH FLU LIKE SYMTOMS FOR 3 DAYS. Historian: Patient Arrival Mode: Car Additional Treatment TV HOST: NONE Insurance Rater Required: No Onset (how long ago): day(s) (2) Location: fever, cough Radiation: Reports non-radiation Severity: mild Onset quality: gradual Timing of current episode: intermittent Chronicity: new Context: Denies recent illness Relieving factors: none Exacerbating factors: none Associated symptoms: Reports cough, Reports fever/chills; Denies shortness of breath Past Medical/Family History Physician Review I have reviewed the patient's past medical and family history. Any updates have been documented here. Past Medical History Recent Fever: Yes Clinical Suspicion of Infectio: No New/Unexplained Change in Ment: No Past Medical History: Hypertension, Diabetes, ESRD, Hemodyalisis, GERD, Chronic Kidney Disease Other Medical History: HD MWF Past Surgical History: CABG Other Surgery: eye surgery to right eye LEFT UPPER ARM FISTULA Social History Smoking Cessation: Never Smoker Counseling Performed: No Alcohol Use: None Any Illegal Drug Use: No TB Exposure/Symptoms: No Physically hurt or threatened: No Family History Family history of heart diseas: No Other Last Tetanus: UNK Any Pre-Existing Lines (PICC,: Yes (L-AV FISTULA) Review of Systems Review of Systems Constitutional: Reports chills, Reports fever, Reports malaise EENTM: Reports no symptoms Cardiovascular: Reports no symptoms; Denies chest pain Respiratory: Reports no symptoms Gastrointestinal: Reports no symptoms Genitourinary: Reports no symptoms Musculoskeletal: Reports no symptoms Integumentary: Reports no symptoms Neurological: Reports no symptoms Psychological: Reports no symptoms Endocrine: Reports no symptoms Hematological/Lymphatic: Reports no symptoms Physical Exam Related Data Allergies: Coded Allergies: hydrocodone (Verified Allergy, Intermediate, VOMITING, 12/05/14) Uncoded Allergies: PLASTIC TAPE (Allergy, Mild, BLISTERS, 12/05/14) Triage Vital Signs Vital Signs Date Time Temp Pulse Resp B/P (MAP) Pulse Ox O2 Delivery O2 Flow Rate FiO2 05/28/20 08:06 98.8 78 18 141/129 98 Room Air Vital signs reviewed: Yes Physical Exam CONSTITUTIONAL Constitutional: Present well-developed, Present well-nourished HENT HENT: Present normocephalic, Present atraumatic, Present oropharynx clear /moist, Present nose normal HENT L/R: Present left ext ear normal, Present right ext ear normal EYES Eyes: Reports PERRL, Reports conjunctivae normal NECK Neck: Present ROM normal PULMONARY Pulmonary: Present effort normal, Present breath sounds normal CARDIOVASCULAR Cardiovascular: Present regular rhythm, Present heart sounds normal, Present capillary refill normal, Present normal rate GASTROINTESTINAL Abdominal: Present soft, Present nontender, Present bowel sounds normal GENITOURINARY Genitourinary: Present exam deferred SKIN Skin: Present warm, Present dry MUSCULOSKELETAL Musculoskeletal: Present ROM normal NEUROLOGICAL Neurological: Present alert, Present oriented x 3, Present no gross motor or sensory deficits PSYCHOLOGICAL Psychological: Present mood/affect normal, Present judgement normal Results Laboratory Laboratory Laboratory Tests Test 05/28/20 08:42 Imaging Imaging results reviewed: Yes Impressions EXAMINATION: CHEST SINGLE (PORTABLE) INDICATION: FEVER, COUGH. ESRD PT COMPARISON: CT Chest 09/03/2019, Chest radiograph 09/02/2019. FINDINGS: TUBES and LINES: None. LUNGS: Lungs are well inflated. Central vascular congestion. Patchy bibasilar opacities. PLEURA: No pleural effusion or pneumothorax. HEART AND MEDIASTINUM: The cardiomediastinal silhouette is mildly enlarged. There are atherosclerotic calcifications within the aorta. BONES AND SOFT TISSUES: No acute osseous abnormality. Status post median sternotomy. UPPER ABDOMEN: No free air under the diaphragm. IMPRESSION: Mild cardiomegaly with central vascular congestion. Patchy bibasilar opacities, which may represent infection or pulmonary edema in the appropriate clinical setting. Signed by: Dr. Xiomara Burden MD on 05/28/2020 9:23 AM Assessment & Plan Medical Decision Making MDM fever/cough, afebrile here - check cxr, covid swab r/o pneumonia, COVID19 Reassessment Reassessment I spoke with Dr Torres - their group will arrange HD at [facility] for PUI's, DC home Zpack, self-quarantine, proning, etc - F/U today - call nephrology Assessment & Plan Final Impression: (1) Fever (2) COVID-19 Depart Disposition: HOME, SELF-CARE Last Vital Signs Date Time Temp Pulse Resp B/P (MAP) Pulse Ox O2 Delivery O2 Flow Rate FiO2 05/28/20 09:22 84 18 172/86 100 Room Air 05/28/20 08:06 98.8 Home Meds Reported Medications Sevelamer Carbonate (RENVELA) 0.8 Gm Powd.pack, 1 TAB PO TID 07/25/18 Insulin Glargine (LANTUS) 100 Units/Ml Ml, 5 SQ ACB 03/26/16 Amlodipine Besylate (AMLODIPINE BESYLATE) 10 Mg Tablet, 10 MG PO DAILY, #30 TAB 03/26/16 Lisinopril (LISINOPRIL) 10 Mg Tablet, 20 MG PO DAILY, #30 TAB 12/05/14 Carvedilol (CARVEDILOL) 12.5 Mg Tablet, 25 MG PO BID, #60 TAB 12/05/14 Medications in the ED Diphenhydramine HCl 25 mg ONCE ONCE PO Last administered on 05/28/20at 09:49; Admin Dose 25 MG; Start 05/28/20 at 09:45; Stop 05/28/20 at 09:46; Status DC Diphenhydramine HCl 25 mg STK-MED ONCE .ROUTE ; Start 05/28/20 at 09:52; Stop 05/28/20 at 09:47; Status DC DOUGIE JIMENEZ MD May 28, 2020 10:09
== END 2020-05-28 10:17 | disposition home or self-care (01) ==
LOC: ER 08:16
DX: U07.1 COVID-19 (principal); R50.9 Fever, unspecified; I12.0 Hypertensive chronic kidney disease with stage 5 chronic kidney disease or end stage renal disease; E11.22 Type 2 diabetes mellitus with diabetic chronic kidney disease; N18.6 End stage renal disease; Z99.2 Dependence on renal dialysis; K21.9 Gastro-esophageal reflux disease without esophagitis; Z95.1 Presence of aortocoronary bypass graft
CPT/HCPCS: 71045; 99283; U0002